=== PATIENT | female | born 1985 | race Asian ===

== ENCOUNTER 2017-07-02 07:54 | Outpatient (CLI) | payer BC, OTHER ==
--- NOTE | 2017-07-02 11:44 | PET ---
PET CT: HISTORY: 31-year-old female with invasive ductal carcinoma (Grade III) of the right breast in the lower inner quadrant. Patient is status post lumpectomy and chemotherapy. Last chemotherapy was in October 2015. Pat ient had bilateral oophorectomy in April 2016. TECHNIQUE: PET scanning with CT attenuation correction was performed from the base of the brain through the prox imal thighs following the intravenous administration of 12 mCi F18-FDG in the left antecubital fossa. COMPARISON: PET CT dated 10/25/16. FINDINGS: There is physiologic activity in the tonsils, heart, GI/ tract, and visualized portions of the brai n. No mercedes hypermetabolism is seen in the neck, mediastinum, intramammary regions, axilla, abdomen, pel vis, or inguinal regions. No hypermetabolic pulmonary nodules, liver, adrenal, or skeletal lesions ar e identified. The CT scan used for attenuation correction demonstrates no evidence of pleural effusions or ascites. Sclerotic lesion in the T12 vertebral body without abnormal FDG localization is again seen. IMPRESSION: No evidence of metastatic disease. POS: [facility]
== END 2017-07-02 07:55 | disposition home or self-care (01) ==
LOC: PET 07:54
PROVIDERS: ATTEND Internal Medicine Hematology & Oncology
DX: C50.919 Malignant neoplasm of unspecified site of unspecified female breast (principal)
CPT/HCPCS: 78815; A9552

== ENCOUNTER 2017-12-22 13:45 | Outpatient (CLI) | payer BC ==
--- NOTE | 2017-12-22 16:39 | MRI ---
MRI OF BRAIN WITH AND WITHOUT CONTRAST: Date: 12/22/17 INDICATION: Headache. History of breast cancer. FINDINGS: There is a large, extra-axial enhancing mass, with epicenter at the right frontoparietal calvarium wi th bone destruction and invasion beyond the confines of the medial calvarial cortex, which does resul t in direct mass effect upon the right cerebrum. There is associated edema. Mass demonstrates an irre gular, lobular morphology, with an approximate AP diameter of 6.2 cm and transverse dimension of 2.9 cm. No significant shift of midline. No additional, pathologically enhancing intra-axial lesions are evident. No evidence of acute infarction. There is stippled susceptibility of the mass, which likely relates to internal punctate calcification. IMPRESSION: Large, avidly enhancing extra-axial mass centered about the right frontoparietal calvarium indicative of a metastatic lesion. There is invasion of the medial calvarial cortex and direct mass effect upon the right cerebral hemisphere with associated edema. Recommend whole body bone scan bone scan for further evaluation. Telephone call placed to patient's physician, Veronika Hong, at time of dictation, 1625 hours, 8. CODE CR. POS: [facility]
== END 2017-12-22 13:46 | disposition home or self-care (01) ==
LOC: SCSMRI 13:45
PROVIDERS: ATTEND Internal Medicine Hematology & Oncology
DX: C50.919 Malignant neoplasm of unspecified site of unspecified female breast (principal); R22.0 Localized swelling, mass and lump, head; R51 Headache; R42 Dizziness and giddiness; G93.6 Cerebral edema
CPT/HCPCS: 70553

== ENCOUNTER 2017-12-24 09:35 | Outpatient (CLI) | payer BC ==
--- NOTE | 2017-12-24 11:32 | CT ---
CT CHEST WITH IV CONTRAST: CT ABDOMEN AND PELVIS WITH IV CONTRAST: HISTORY: Breast cancer with new found metastatic disease. Restaging. COMPARISON: PET scan from 07/02/2017. FINDINGS: Postoperative changes, right breast. Left subclavian Mediport. No pulmonary abnormalities or medias tinal adenopathy. Mixed sclerotic and lytic lesion involving the left side of the T5 vertebral body extends back to the level of the pedicular base. There is partial compression of the left side of th e involved vertebra. Multiple lobular low density masses are apparent throughout the liver, involving each lobe. The lesi ons were not visible on the noncontrast CT images from the PET scan on 07/02/2017. The largest bob s include a posterior segment right liver lobe lesion, up to 2.7 cm in depth, on the axial images, an d a mass centrally, within the anterior segment, right liver lobe, measuring up to 1.5 cm. The splee n, kidneys, adrenal glands, and pancreas are unremarkable. The urinary bladder is incompletely diste nded. IMPRESSION: Newfound metastatic lesions of the liver and thoracic spine. POS: [facility]
--- NOTE | 2017-12-24 13:05 | NM ---
WHOLE BODY BONE SCAN: Date: 12/24/17 CLINICAL HISTORY: Malignant neoplasm of lower inner quadrant right breast. Recent MRI of brain revealed metastatic lesi on centered at the right parietal calvarium. RADIOPHARMACEUTICAL: 31 mCi technetium-99m MDP IV. FINDINGS: There is abnormal increased scintigraphic activity localized to the right parietal calvarium at site of lesion on prior MRI of brain, which does confirm an osseous metastatic lesion. There is also abnor mal increased radiotracer activity involving the posterior aspect of the upper thoracic spine, T5 lev el. Scattered degenerative activity is seen within the axial and appendicular skeleton. IMPRESSION: Evidence of osseous metastatic disease involving the calvarium and the thoracic spine. POS: [facility]
[2017-12-24] MEDS ORDERED: Iopamidol 370 76% 100 ML VIAL ONE (15:19)
== END 2017-12-24 09:36 | disposition home or self-care (01) ==
LOC: NM 09:35
PROVIDERS: ATTEND Internal Medicine Hematology & Oncology
DX: C50.311 Malignant neoplasm of lower-inner quadrant of right female breast (principal); C78.7 Secondary malignant neoplasm of liver and intrahepatic bile duct; C79.51 Secondary malignant neoplasm of bone; K76.9 Liver disease, unspecified
CPT/HCPCS: 71260; 74177; 78306; A9503

== ENCOUNTER 2018-03-23 08:18 | Outpatient (CLI) | payer BC ==
--- NOTE | 2018-03-23 11:38 | MRI ---
THORACIC SPINE MRI WITH AND WITHOUT IV CONTRAST: HISTORY: A 32-year-old female with a history of breast cancer with bone metastasis, C50.311. Complaints of mi d back pain for several months. COMPARISON: Prior CT scan from 12/24/2017, as well as a bone scan from 12/24/2017. FINDINGS: With and without contrast MRI examination of the thoracic spine is performed. The entire T2 vertebra l body shows abnormal low T1 and high T2 signal, with some extension into the pedicles, evidence for a metastatic focus. No evidence for retropulsion. There is heterogeneous abnormal signal involving the T5 vertebral body, with some mild vertical heigh t loss centrally, evidence for a mild compression fracture, which does not appear significantly mcgarry ed from 12/24/2017. There is some very subtle retropulsion but no evidence for associated central ca nal narrowing or spinal cord compression. No evidence for a spinal cord mass or abnormal spinal cord enhancement. There is also some abnormal signal associated with the T3 vertebral body and the T12 v ertebral body, evidence for metastasis. IMPRESSION: Stable appearing T5 metastasis from 12/24/2017 with evidence for a mild pathologic fracture but no as sociated canal or foraminal stenosis. The entire T2 vertebral body shows abnormal signal with some e xtension into the pedicles, evidence for an extensive metastatic focus, without evidence for retropul jessica or canal stenosis. Additionally, there are metastatic foci involving the T3 and T12 vertebral b odies. POS: [facility]
== END 2018-03-23 08:19 | disposition home or self-care (01) ==
LOC: BICMRI 08:18
PROVIDERS: ATTEND Internal Medicine Hematology & Oncology
DX: C50.311 Malignant neoplasm of lower-inner quadrant of right female breast (principal); C79.51 Secondary malignant neoplasm of bone; D70.9 Neutropenia, unspecified; R11.0 Nausea
CPT/HCPCS: 72157

== ENCOUNTER 2018-04-02 08:10 | Outpatient (CLI) | payer BC ==
--- NOTE | 2018-04-02 11:19 | CT ---
CT BRAIN: DATE: 04/02/2018. COMPARISON: Comparison is made to comparison MRI from 12/2017. FINDINGS: CT images of the brain demonstrate expansile invasive right frontal intraosseous mass. The medially extending component of the soft tissue portion of this mass has slightly decreased in size. The intr aosseous component has an expansile permeative appearance eroding through the medial wall of the calv arium. The lesion appears to extent to the lateral table of the skull but does not appear to definit yfn expand past it into the scalp. No evidence of intracranial edema or hydrocephalus seen. IMPRESSION: Expansile right frontal intraosseous mass appearing to have a slight decrease as far as the volume of the soft tissue component. The permeative intraosseous component remains fairly stable. POS: [facility]
--- NOTE | 2018-04-02 11:40 | CT ---
CT THORAX WITH CONTRAST CT ABDOMEN WITH CONTRAST CT PELVIS WITH CONTRAST: Date: 04/02/18 HISTORY: 32-year-old female with: C50.311, breast cancer. C22.9, liver metastasis. C79.51, bone metastasis. TECHNIQUE: IV iodinated contrast media: Isovue-370. Oral contrast media: Administered. Single phase scans of thorax, abdomen, and pelvis. COMPARISON: 12/24/17. FINDINGS: Skeletal: The mixed osteolytic and osteoblastic lesion centered to the left of midline involving the T5 vertebr al body is again noted. It had increased uptake on the prior nuclear medicine bone scan, and is cons istent with a bone metastasis. On the previous CT, there was a sclerotic lesion centered to the righ t of midline at the T12 vertebral body, which did not have increased uptake on the nuclear medicine b one scan of the same day. Currently, that same lesion is unchanged, but now there is a new, smaller s clerotic lesion at the anterolateral periphery of the T12 vertebral body, broadly abutting the osseou s cortex, measuring approximately 0.8 x 0.6 x 1.2 cm (axial image 58 of 73, series 3; coronal image 3 0 of 58, series 5). This is suspicious for a new osteoblastic metastasis. No other suspicious osseous lesions are identified, including in the pelvis. Thorax: Left internal jugular implantable vascular access port. No mediastinal or hilar lymphadenopathy. Mult iple surgical clips in the right breast posteriorly near the right chest wall. Lungs are clear. No me diastinal or hilar lymphadenopathy. No thoracic aortic aneurysm. No pleural effusion or pneumothorax. Abdomen: Again noted are the several moderately low attenuation hepatic lesions with irregular, indistinct mar gins. The largest of these is in hepatic segment 6, and is approximately 2.7 cm. These hepatic lesion s have not significantly changed. Bilateral kidneys, abdominal aorta, pancreas, adrenals, and spleen are normal. There are a couple of minimally enlarged retroperitoneal lymph nodes to the left of the origin of the superior mesenteric a rtery and anteromedial to the left kidney, not significantly changed. Otherwise, there is no signific ant mesenteric, retroperitoneal, or theron hepatis lymphadenopathy. No small bowel dilation. Pelvis: Absent uterus. Decompressed unremarkable bladder. No iliac chain lymphadenopathy. No free fluid. IMPRESSION: 1. In addition to the previously demonstrated osseous metastatic lesion at T5 vertebral body, there is a new small sclerotic lesion at the right periphery of the T12 vertebral body, highly suspicious f or a new osseous metastatic deposit. 2. No significant interval change in the multiple hepatic metastases. 3. No other interval change. JN R POS: [facility]
[2018-04-02] MEDS ORDERED: ISOVUE-370 76%-LOCM 1 ML ONE (12:29)
== END 2018-04-02 08:11 | disposition home or self-care (01) ==
LOC: BICCT 08:10
PROVIDERS: ATTEND Internal Medicine Hematology & Oncology
DX: C50.919 Malignant neoplasm of unspecified site of unspecified female breast (principal); C79.51 Secondary malignant neoplasm of bone; C78.7 Secondary malignant neoplasm of liver and intrahepatic bile duct; C79.31 Secondary malignant neoplasm of brain; G93.9 Disorder of brain, unspecified
CPT/HCPCS: 70450; 71260; 74177

== ENCOUNTER 2018-07-01 13:01 | Outpatient (CLI) | payer BC ==
[~2018-07-01 13:01] MED LIST: Iopamidol 370 76% 100 ML VIAL ONE
--- NOTE | 2018-07-01 18:41 | CT ---
CT CHEST WITH CONTRAST CT ABDOMEN WITH CONTRAST CT PELVIS WITH CONTRAST: Date: 07/01/18 HISTORY: Breast cancer, liver metastasis and bone metastasis. COMPARISON: CT chest, abdomen, and pelvis dated 04/02/18. FINDINGS: New from the comparison examination is a focal area of consolidation in the superior segment right lo wer lobe with bronchial wall thickening. This has somewhat of a triangular shaped appearance. There i s also enlargement of a right perifissural lymph node which measures up to 8.0 mm in short axis, prev iously 4.0 mm. This could be reactive lymph node due to a healing infection. There is also an enlarge d left major fissure perifissural lymph node measuring 5.0 mm in short axis, previously 3.0 mm. There is a new nodule right lung base, posterior basal segment, axial image 48, measuring 3.0 mm, not seen on the prior examination. There is a new 6.0 mm pulmonary nodule medial segment right lower lobe, ax ial image 44. Thyroid is unremarkable. No mediastinal adenopathy. No pericardial effusion. Clips are present along the right inferior breast. No axillary adenopathy. No internal mammary adenop athy. Port catheter is in place, tip in good position. Hepatic metastatic disease has progressed. There are numerous new foci of metastasis within hepatic s egment V, , VII, and VIII. Index lesion within hepatic segment VII is new, axial image 58, measurin g 2.0 cm in largest dimension. Hepatic segment metastatic focus previously measured 1.5 cm in grea test dimension, now measures approximately 2.0 cm. There is some adjacent peripheral capsular retract ion. Hepatic segment lesion with peripheral capsular retraction, axial image 64, measures 1.7 cm i n greatest dimension, new. Spleen is unremarkable, as well as the pancreas. Gallbladder is unremarkable. Adrenal glands are norm al. No hydronephrosis. No dilated loops of large or small bowel. No retroperitoneal adenopathy. T12 sclerotic metastatic focus is similar. There is cement within the T5 vertebra with mixed sclerosi s and lytic appearance of the left sided portion of the vertebral body. There is a new mixed sclerotic and lytic lesion within the T2 vertebral body. In retrospect, the T2 v ertebral body mixed sclerosis and lytic central focus is similar to the comparison exam. Ribs are without displaced fracture. IMPRESSION: 1. Interval progression of metastatic disease with new and enlarging hepatic masses. 2. New small pulmonary nodules as described, concerning for early metastatic disease. 3. Focal area of consolidation superior segment right lower lobe with enlarged right perifissural ma mumtaz fissure and left perifissural major fissure lymph nodes may be reactive from healing infection. C lose attention on follow-up imaging is recommended. 4. Metastatic osseous disease at T2, T5, and T12, appears relatively similar, although there is new cement within the right T5 vertebral body. POS: [facility]
--- NOTE | 2018-07-01 18:50 | CT ---
CT HEAD WITH AND WITHOUT CONTRAST: INDICATIONS: Breast cancer with a history of metastasis. COMPARISON: Reference made to prior brain MRI from 12/22/2017, as well as intervening head CT from 04/02/2018. FINDINGS: Redemonstration of a lytic destructive mass of the right frontal parietal calvarium. There is underl french abnormal dural irregularity and enhancement, to indicate spread of metastasis of the extraaxial space. there is no definitive enhancing intraaxial mass identified. No midline shift or ventriculom egaly. No evidence of intracranial hemorrhage. There is a partially imaged retention cyst of the ri ght maxillary sinus. IMPRESSION: Redemonstration of a lytic destructive metastatic lesion occupying the right frontal parietal calvari um and the underlying extraaxial space. POS: [facility]
== END 2018-07-01 13:02 | disposition home or self-care (01) ==
LOC: BICCT 13:01
PROVIDERS: ATTEND Internal Medicine Hematology & Oncology
DX: C50.311 Malignant neoplasm of lower-inner quadrant of right female breast (principal); C22.9 Malignant neoplasm of liver, not specified as primary or secondary; C79.51 Secondary malignant neoplasm of bone; R91.8 Other nonspecific abnormal finding of lung field; J18.1 Lobar pneumonia, unspecified organism
CPT/HCPCS: 70470; 71260; 74177; Q9967

== ENCOUNTER 2018-07-08 08:28 | Outpatient (CLI) | payer BC ==
--- NOTE | 2018-07-08 10:42 | MRI ---
MRI CERVICAL SPINE WITH AND WITHOUT CONTRAST: HISTORY: Neck pain. Metastatic breast cancer. TECHNIQUE: MRI of the lumbar spine is performed with and without intravenous Gadolinium administration. Multise quential, multiplanar imaging is performed. FINDINGS: Straightening of normal cervical lordosis. No significant STIR hyperintensities, vertebral body neto a, or ligamentous injury with regards to the cervical spine. There is T1 marrow signal hypointensity with associated T2, STIR hyperintensity as well as enhancement involving the T1, T2, and T3 vertebra l bodies. Heterogeneous enhancement is noted at T2 and T3. There is 1.3 mm of anterolisthesis of C3 upon C4. 1.8 mm of anterolisthesis of C4 upon C5. Visualized brain parenchyma, cervicomedullary junction, cervical cord, and the upper thoracic cord linda ve a normal size and signal intensity. No abnormal enhancement. C2-C3: No significant central canal stenosis. Foramen are patent. C3-C4: No significant central canal stenosis. Foramen are patent. C4-C5: No significant central canal stenosis. Foramen are patent. C5-C6: Minimal central disk protrusion. No significant central canal stenosis. Foramen are patent. C6-C7: No significant central canal stenosis or foraminal narrowing. C7-1: No significant central canal stenosis or foraminal narrowing. There is an intrinsic T2 hyperi ntense, enhancing focus along the left aspect of the neck which is incompletely evaluated. The lesio n measures at least 1.6 cm in the craniocaudal dimension and is located at approximately the C7 level . IMPRESSION: 1. No significant central canal stenosis or foraminal narrowing. 2. Osseous metastases involving the upper thoracic spine. No definite osseous metastatic lesions in the cervical spine. 3. No abnormal signal intensity in the visualized spinal cord and brain parenchyma. 4. Enhancing focus in the left aspect of the neck, at approximately the level of the C7 vertebral lottie dy. The lesion is incompletely evaluated. Consider post contrast neck CT. POS: [facility]
== END 2018-07-08 08:29 | disposition home or self-care (01) ==
LOC: MRI 08:28
PROVIDERS: ATTEND Internal Medicine Hematology & Oncology
DX: C50.311 Malignant neoplasm of lower-inner quadrant of right female breast (principal); C78.7 Secondary malignant neoplasm of liver and intrahepatic bile duct; C79.51 Secondary malignant neoplasm of bone
CPT/HCPCS: 72156

== ENCOUNTER 2018-08-16 16:39 | Emergency (ER) | payer BC ==
[~2018-08-16 16:39] MED LIST changes: +ISOVUE-370 76%-LOCM 1 ML ONE; -Iopamidol 370 76% 100 ML VIAL ONE
[2018-08-16 17:54] LABS: Bilirubin Negative (Negative); Blood, Urine Negative (Negative); Clarity CLEAR (Clear); Glucose, Urine (Dipstick) Negative (Negative); Leukocyte Negative (Negative); Nitrite Negative (Negative); Protein, Urine (Dipstick) Negative (Neg-Trace); Specific Gravity, Urine 1.034 (1.002-1.036)
[2018-08-16 18:15] LABS: #Basophils 0.1 thou/uL (0.0-0.2); #Eosinphils 0.1 thou/uL (0.0-0.7); #Lymphocytes 1.5 thou/uL (1.20-3.40); #Monocytes 0.5 thou/uL (0.11-0.59); #Neutrophils 2.4 thou/uL (1.40-6.50); %Basophils 1.2 % (0.0-1.0); %Eosinophils 2.2 % (0.0-10.0); %Lymphocytes 33.5 % (21.0-51.0); %Monocytes 9.9 % (0.0-10.0); %Neutrophils 53.3 % (42.0-75.0); Mean Corpuscular Hemoglobin 33.3 pg (27.0-31.0); Mean Corpuscular Volume 97.8 fL (78.0-98.0); Mean Platelet Volume 6.3 fL (7.4-10.4); Platelet Count 304 thou/uL (130-400); RBC Distribution Width 13.6 % (11.5-14.5); Red Blood Cell (RBC) Count 3.91 mill/uL (4.20-5.40); White Blood Cell (WBC) Count 4.5 thou/uL (4.8-10.8)
[2018-08-16 18:22] LABS: PTT 29.7 SEC (22.9-36.1); Prothrombin Time 13.2 SEC (12.0-14.7)
[2018-08-16 18:26] LABS: ALT (SGPT) 111 U/L (8-55); AST (SGOT) 72 U/L (5-34); Albumin 4.8 g/dL (3.5-5.0); Alkaline Phosphatase 190 U/L (40-150); Anion Gap 14 mmol/L (10-20); BUN (Urea Nitrogen) 13 mg/dL (7.0-18.7); Bilirubin, Total 0.4 mg/dL (0.2-1.2); Calc. Creatinine Clearance 0 mL/min (70-130); Calcium 10.1 mg/dL (7.8-10.44); Carbon Dioxide 26 mmol/L (22-29); Chloride 103 mmol/L (98-107); Estimated GFR-MDRD 81; Globulin 3.6 g/dL (2.4-3.5); Glucose 93 mg/dL (70-105); Potassium 4.2 mmol/L (3.5-5.1); Protein, Total 8.4 g/dL (6.0-8.3); Sodium 139 mmol/L (136-145)
[2018-08-16] MEDS ORDERED: Nitroglycerin 0.4 MG TAB 1 EACH ONE (19:17)
[2018-08-16] MEDS ORDERED: Acetaminophen 500 MG TAB ONE (19:42)
--- NOTE | 2018-08-16 19:55 | CT ---
FExam: CT pulmonary angiogram with IV contrast and three-dimensional reconstructions Provided clinical history: Dyspnea FINDINGS: Comparison CT chest abdomen and pelvis 07/01/2018. There is no evidence for central or segmental pulmonary embolus. The heart, pericardium and great ves sels demonstrate a stable CT appearance. There is no evidence for thoracic lymph node enlargement. Th e airway appears patent and of normal caliber. No pleural fluid or pneumothorax apparent. There is pe rsistent parenchymal opacity involving the superior segment of the right lower lobe medially, with as sociated bronchial wall thickening. The right lower lobe pulmonary nodules described on the prior exa mination are not definitely identified on this examination. The previously described fissural nodule on the left does not appear significantly changed. Interval enlargement of the fissural nodule on the right measuring approximately 12 mm. Numerous hepatic masses as well as osseous metastatic disease a re redemonstrated. IMPRESSION: 1. No evidence for central or segmental pulmonary embolus. 2. Other findings as above.
[2018-08-16] MEDS ORDERED: Mag-Al 1200 mg/1200 mg/30 ML UDCUP ONE (21:24)
[2018-08-16] MEDS ORDERED: Lidocaine Viscous Sol 2% 15 ml UD Cup ONE (21:24)
[2018-08-16] MEDS ORDERED: Pantoprazole 40 MG VIAL ONE (21:24)
== END 2018-08-16 22:30 | disposition home or self-care (01) ==
LOC: ERS 16:39
DX: R07.89 Other chest pain (principal); F41.9 Anxiety disorder, unspecified; F32.9 Major depressive disorder, single episode, unspecified; Z87.891 Personal history of nicotine dependence; Z79.899 Other long term (current) drug therapy
CPT/HCPCS: 71275; 80053; 81003; 84484; 85025; 85610; 85730; 93005; 94760; 96374; C9113; Q9966

== ENCOUNTER 2018-09-06 12:15 | Emergency (ER) | payer BC ==
--- NOTE | 2018-09-06 13:10 | RAD ---
CHEST 1 VIEW: DATE: 09/06/2018. TIME: 12:55 p.m. HISTORY: Chest pain. FINDINGS: The heart size is normal. There is a left internal jugular Port-A-Cath with tip in the projection of the SVC. The lungs are expanded without focal areas of consolidation, pneumothoraces, or pleural ef fusions. There are changes of vertebroplasty in the lower thoracic spine. IMPRESSION: No radiographic evidence of acute cardiopulmonary process. POS: [facility]
[2018-09-06 13:17] LABS: #Basophils 0.1 thou/uL (0.0-0.2); #Eosinphils 0.1 thou/uL (0.0-0.7); #Lymphocytes 1.8 thou/uL (1.20-3.40); #Monocytes 0.7 thou/uL (0.11-0.59); #Neutrophils 4.2 thou/uL (1.40-6.50); %Basophils 0.8 % (0.0-1.0); %Eosinophils 0.9 % (0.0-10.0); %Lymphocytes 26.3 % (21.0-51.0); %Monocytes 10.5 % (0.0-10.0); %Neutrophils 61.6 % (42.0-75.0); Hemoglobin 13.1 g/dL (12.0-16.0); Mean Corpuscular HGB CONC 33.4 g/dL (32.0-36.0); Mean Corpuscular Hemoglobin 33.3 pg (27.0-31.0); Mean Corpuscular Volume 99.7 fL (78.0-98.0); Mean Platelet Volume 5.9 fL (7.4-10.4); Platelet Count 247 thou/uL (130-400); RBC Distribution Width 13.7 % (11.5-14.5); Red Blood Cell (RBC) Count 3.92 mill/uL (4.20-5.40); White Blood Cell (WBC) Count 6.8 thou/uL (4.8-10.8)
[2018-09-06 13:39] LABS: ALT (SGPT) 46 U/L (8-55); AST (SGOT) 38 U/L (5-34); Albumin 4.8 g/dL (3.5-5.0); Alkaline Phosphatase 165 U/L (40-150); Anion Gap 14 mmol/L (10-20); BUN (Urea Nitrogen) 10 mg/dL (7.0-18.7); Bilirubin, Total 0.5 mg/dL (0.2-1.2); CK (CPK) 98 U/L (29-168); Calc. Creatinine Clearance 0 mL/min (70-130); Calcium 9.9 mg/dL (7.8-10.44); Carbon Dioxide 29 mmol/L (22-29); Chloride 103 mmol/L (98-107); Estimated GFR-MDRD 74; Globulin 3.1 g/dL (2.4-3.5); Glucose 96 mg/dL (70-105); Potassium 4.3 mmol/L (3.5-5.1); Protein, Total 7.9 g/dL (6.0-8.3); Sodium 142 mmol/L (136-145)
[2018-09-06] MEDS ORDERED: ISOVUE-370 76%-LOCM 1 ML ONE (15:03)
--- NOTE | 2018-09-06 15:18 | CT ---
CT Brain W WO Con: 09/06/2018 2:04 PM CLINICAL HISTORY: Skull metastasis, numbness left-sided. COMPARISON: 07/01/2018 FINDINGS: Hemorrhage: None. Ventricular system: Normal in size and morphology for the patient's age. Cerebral parenchyma: Stable appearance. Extra-axial mass overlying the right frontal convexity remain s. Midline shift: None. Mass: No new intra-axial mass effect Calvarium: Large lytic destructive/permeative lesion of the right frontal and parietal bones is redem onstrated, grossly stable in volume. Visualized Paranasal sinuses: Clear. IMPRESSION: Stable large lytic destructive/permeative lesion of the right frontal and parietal bones.
== END 2018-09-06 16:37 | disposition home or self-care (01) ==
LOC: ERS 12:15
DX: R07.89 Other chest pain (principal); R20.2 Paresthesia of skin; C50.919 Malignant neoplasm of unspecified site of unspecified female breast; C78.7 Secondary malignant neoplasm of liver and intrahepatic bile duct; F41.9 Anxiety disorder, unspecified; F32.9 Major depressive disorder, single episode, unspecified
CPT/HCPCS: 36415; 70470; 71045; 80053; 82550; 84484; 85025; 93005; Q9966

== ENCOUNTER 2018-09-27 08:02 | Outpatient (CLI) | payer BC ==
--- NOTE | 2018-09-27 14:13 | NM ---
RADIONUCLIDE GASTRIC EMPTYING SCAN: HISTORY: Epigastric pain. Abdominal pain after radiation therapy treatments. H. Pylori infection diag nosed 4 weeks ago and has been treated RADIOPHARMACEUTICAL: 2 mCi technetium 99m sulfur colloid administered orally in scrambled eggs. FINDINGS: Gastric emptying at different times is as follows: 1 hour: 45% 2 hours: 72% 3 hours: 79% 4 hours: 81% The calculated gastric emptying half-time measures 73 minutes. IMPRESSION: Delayed gastric emptying.
== END 2018-09-27 08:03 | disposition home or self-care (01) ==
LOC: NM 08:02 → MERGE 08:02 → NM 08:03
PROVIDERS: ATTEND Physician Assistant Medical
DX: R10.13 Epigastric pain (principal); K30 Functional dyspepsia
CPT/HCPCS: 78264; A9541

== ENCOUNTER 2018-10-18 07:19 | Outpatient (CLI) | payer BC ==
--- NOTE | 2018-10-18 09:58 | MRI ---
PRE AND POST CONTRAST ENHANCED MRI THORACIC SPINE: HISTORY: Patient with history of back pain. Multiplanar, multisequence noncontrast enhanced MRI images thoracic spine obtained. FINDINGS: Areas of signal abnormality seen in the C7, T1, T2, T3, T4, and T5 levels. There is signal abnormalit y seen in the spinous processes of C7, T1, and T2, as well as vertebral body of T12. These findings are compatible with extensive lower cervical and thoracic metastatic lesions. Areas of signal abnorma lity seen in the T5 vertebral body likely due to vertebroplasty. These lesions do enhance on the contrast-enhanced images. IMPRESSION: Extensive thoracic spine metastatic disease as described above. No significant evidence of central st enosis or neural foraminal narrowing seen. Transcribed Date/Time: 10/18/2018 10:08 AM
== END 2018-10-18 07:20 | disposition home or self-care (01) ==
LOC: SCSMRI 07:19
PROVIDERS: ATTEND Nurse Practitioner Family
DX: M84.48XA Pathological fracture, other site, initial encounter for fracture (principal); C79.51 Secondary malignant neoplasm of bone
CPT/HCPCS: 72146

== ENCOUNTER 2018-11-26 09:53 | Day surgery (SDC) | payer BC ==
[2018-11-25 15:13] VITALS: BMI 30.4
[2018-11-26 10:04] LABS: #Lymphocytes 0.9 thou/uL (1.20-3.40); #Monocytes 0.2 thou/uL (0.11-0.59); %Eosinophils 0.9 % (0.0-10.0); %Lymphocytes 28.5 % (21.0-51.0); %Monocytes 7.4 % (0.0-10.0); %Neutrophils 63.2 % (42.0-75.0); Hemoglobin 12.9 g/dL (12.0-16.0); Mean Corpuscular HGB CONC 32.6 g/dL (32.0-36.0); Mean Platelet Volume 5.9 fL (7.4-10.4); Platelet Count 260 thou/uL (130-400); RBC Distribution Width 15.5 % (11.5-14.5); Red Blood Cell (RBC) Count 3.93 mill/uL (4.20-5.40); White Blood Cell (WBC) Count 3.1 thou/uL (4.8-10.8)
[2018-11-26 10:12] LABS: PTT 29.4 SEC (22.9-36.1); Prothrombin Time 13.4 SEC (12.0-14.7)
[2018-11-26 11:49] VITALS: BP 96/81; TEMP 97.2
--- NOTE | 2018-11-26 12:04 | CT ---
CT-guided liver mass biopsy Conscious sedation: At least 1 hour was spent with the patient for conscious sedation. HISTORY: Liver masses. Breast cancer. FINDINGS: After explaining the procedure and answering all questions, limited CT imaging of the abdom en was performed. Sterile technique, buffered local anesthesia, CT guidance, conscious sedation, and a right upper quadrant intercostal approach were used to carefully advance the tip of a 17-gauge trocar needle to the level of a small hypodense mass in the right liver lobe. Position was confirmed with CT. A total of 4 18-gauge core biopsy specimens were obtained and submitted to Dr. Islas from pathology f or specimen adequacy. Needle was removed. No evidence of complication. Patient tolerated the procedure well and was returned to the holding area in good condition for further monitoring. IMPRESSION: Technically successful CT-guided liver mass biopsy. Pathology is pending.
== END 2018-11-26 13:45 | disposition home or self-care (01) ==
LOC: CT 09:53
PROVIDERS: ATTEND Internal Medicine Hematology & Oncology
PROC: 0FB13ZX Excision of Right Lobe Liver, Percutaneous Approach, Diagnostic (ICD-10-PCS; principal; 2018-11-26)
DX: C78.7 Secondary malignant neoplasm of liver and intrahepatic bile duct (principal); C50.911 Malignant neoplasm of unspecified site of right female breast; D70.9 Neutropenia, unspecified; F41.9 Anxiety disorder, unspecified; F32.9 Major depressive disorder, single episode, unspecified; Z87.891 Personal history of nicotine dependence; Z86.19 Personal history of other infectious and parasitic diseases; Z79.899 Other long term (current) drug therapy
CPT/HCPCS: 36415; 47000; 77012; 85025; 85610; 85730

== ENCOUNTER 2018-12-15 15:57 | Outpatient (CLI) | payer BC ==
--- NOTE | 2018-12-15 17:49 | ULT ---
LEFT UPPER EXTREMITY VENOUS DOPPLER EVALUATION WITH SPECTRAL ANALYSIS AND COLORFLOW EVALUATION: HISTORY: Left upper extremity swelling/edema. TECHNIQUE: [place]-scale, color-flow, Doppler evaluation, and spectral analysis of the left upper extremity venous structures is performed with 2D imaging. FINDINGS: There is normal lumen compressibility and flow seen in the visualized left upper extremity interna ju gular and axillary veins, with normal flow in the left subclavian vein. There is normal lumen compre ssibility and flow involving the left brachial vein. The cephalic and basilic veins are not well see n due to the very small size, but also demonstrate normal lumen compressibility. There is suggestion of flow and normal lumen compressibility with the left ulnar and radial veins. IMPRESSION: No evidence of deep venous thrombosis involving the visualized deep venous structures of the left upp er extremity. POS: [facility]
== END 2018-12-15 15:58 | disposition home or self-care (01) ==
LOC: ULT 15:57
PROVIDERS: ATTEND Internal Medicine Hematology & Oncology
DX: I82.90 Acute embolism and thrombosis of unspecified vein (principal); R60.0 Localized edema; M79.602 Pain in left arm; C79.51 Secondary malignant neoplasm of bone; C50.311 Malignant neoplasm of lower-inner quadrant of right female breast
CPT/HCPCS: 80053

== ENCOUNTER 2018-12-21 09:52 | Outpatient (CLI) | payer BC ==
--- NOTE | 2018-12-21 12:02 | MRI ---
MRI LEFT SHOULDER WITH AND WITHOUT IV CONTRAST: DATE: 11/03/2018. PROVIDED CLINICAL HISTORY: Left shoulder pain, history of breast cancer. FINDINGS: There is a focal, rounded, mass-like area of signal alteration present within the posterior aspect of the proximal left humeral metaphyseal region. This demonstrates T1 signal intensity similar to skel etal muscle, T2 signal intensity, hyperintense to skeletal muscle and essentially diffuse contrast en hancement. Regional marrow signal appears otherwise normal. The amount of fluid within the glenohumeral joint a ppears physiologic. The components of the rotator cuff appear intact. The long head biceps tendon a ppears intact and is normally located. Acromioclavicular joint degenerative changes are seen. There is a physiologic amount of subacromial subdeltoid bursal fluid. Nonspecific subacromial subdeltoid bursal enhancement. There is no evidence for axillary lymph node enlargement. IMPRESSION: 1. Approximately 9 mm enhancing lesion within the posterior aspect of the left proximal humeral meta physeal region, suspicious for a metastatic lesion in a patient with a history of breast cancer. 2. Acromioclavicular joint osteoarthrosis and findings suggesting mild subacromial subdeltoid bursit is. POS: [facility]
--- NOTE | 2018-12-21 12:19 | MRI ---
MRI LEFT HUMERUS: DATE: 12/21/2018. PROVIDED CLINICAL HISTORY: Left arm pain. FINDINGS: Enhancing mass within the left proximal humeral metaphyseal region as described on concurrent MRI lef t shoulder. Please see that report. There is mild nonspecific signal inhomogeneity involving the marrow of the left humeral diaphysis. N o definite area of mass-like enhancement within the remainder of the left humerus is identified. Reg ional muscular signal appears normal. The courses of the regional major neurovascular structures sid ear unremarkable. IMPRESSION: 1. Enhancing lesion within the left proximal humeral metaphyseal region as described on concurrent M RI of the left shoulder. Please see that report. 2. Nonspecific signal inhomogeneity involving the diaphyseal marrow of the humerus without additiona l focal mass-like enhancing lesion evident. POS: [facility]
== END 2018-12-21 09:53 | disposition home or self-care (01) ==
LOC: MRI 09:52
PROVIDERS: ATTEND Internal Medicine Hematology & Oncology
DX: M79.602 Pain in left arm (principal); R20.2 Paresthesia of skin; C79.51 Secondary malignant neoplasm of bone; C50.311 Malignant neoplasm of lower-inner quadrant of right female breast; R60.0 Localized edema; M89.9 Disorder of bone, unspecified; M19.012 Primary osteoarthritis, left shoulder

== ENCOUNTER 2019-03-21 08:06 | Outpatient (CLI) | payer BC ==
[2019-03-21] MEDS ORDERED: Iopamidol 370 76% 100 ML VIAL ONE (09:00)
--- NOTE | 2019-03-21 11:54 | CT ---
CT HEAD WITH AND WITHOUT CONTRAST: CLINICAL HISTORY: Metastatic disease. COMPARISON: Reference is made to outside brain MRI from 02/18/2019. FINDINGS: There is a permeative lytic lesion centered at the right frontal parietal calvarium with underlying p athologic meningeal enhancement and adjacent vasogenic edema. There are multifocal subcentimeter enhancing foci of the bilateral cerebral hemispheres indicative of multiple metastatic lesions and gi essence differences in imaging modalities, these do appear progressed from the comparison exam. A dural based mass along the interhemispheric falx measures 13 mm, compared to approximately 11 mm on precedi ng MRI. IMPRESSION: Evidence of metastatic disease involving the brain parenchyma and calvarium. Given differences in ashley ging modalities, findings do appear progressed from the reference MRI from 02/18/2019. A more sensitive comparison followup may be obtained with pre and postcontrast brain MRI, as clinically soraya cated. Transcribed Date/Time: 03/21/2019 12:10 PM
--- NOTE | 2019-03-21 12:18 | CT ---
CT of chest and abdomen performed with contrast: HISTORY: Breast cancer with metastatic disease. COMPARISON: CT of the chest and abdomen performed at [facility] dated the 2018. Also review of the bone scan of 12/27/2018 done at [facility]. FINDINGS: There is been development of moderate bilateral pleural effusions. There is now generalized increased interstitial lung changes which have a slightly patchy peripheral nodular appearance associated with these changes. A soft tissue pleural-based nodule located along the superior aspect o f the major fissure on the left measures 2.2 cm in maximum dimension on today's study is compared to 1.6 cm. There is a nodular density present within the right upper lobe on the previous examination is now more vague ill-defined nodular opacity. There is also nodular mass density which is seen along the major fissure on the right which is also increasing in size as is difficult to measure but is definitely increased. The interstitial pattern could certainly be related to an element of edema but the concern would be that this also could represent lymphangitic spread of tumor. Small right paratracheal nodes are slightly increased in number and size as compared to prior exam th e best comparison is a 2 to 3 mm right paratracheal of lymph nodes seen on the prior examination now measuring 7 to 8 mm in size. There is also a subcarinal lymph nodes which are increased. There is centrally of low attenuation which could indicate treatment effect. There is no significant axillary adenopathy. CT of abdomen performed with intravenous contrast enhancement: There is been a significant progressio n in the liver metastases metastatic disease is compared to exam innumerable nodules are seen within the right and left lobes with increase in number and size. The spleen pancreas and gallbladder regions appear unremarkable. There are small gastrohepatic lymph nodes which are increased in size these are in the 1 cm range. There are also some small chain of 1 cm lymph nodes located just to the left of the aorta at the level of the superior mesenteric artery, these are slightly more prominent than on the previous study. The right and left adrenal glands and right and left kidneys are normal in size. No significant mesen teric adenopathy. Review of osseous structures once again shows sclerotic bony lesions of these lower cervical and uppe r thoracic spine region with vertebral plasty changes of T5 and lytic bony change at T6 there is loss of vertebral body height involving the superior endplate of T11 and L2, this is a new finding as compared to the previous tamps may be related to osteoporosis as I do not see any lytic or blastic bony process. The blastic bony change involving the left SI joint region is fairly similar. IMPRESSION: 1. Development of interstitial lung changes in both lung cazares associated bilateral pleural effusion s. Certainly this could represent some element of pulmonary edema but the possibility of lymphangitic spread of tumor would also be a consideration. There is been a definite increase in size of the nodularity along the major fissure on the left and right. 2. Increase in the liver metastatic disease. 3. Subtle increase in size as on the mediastinal nodes as well as gastrohepatic lymph nodes and peria ortic nodes. 4. Stable appearance to the bony metastatic change.
== END 2019-03-21 08:07 | disposition home or self-care (01) ==
LOC: SCSCT 08:06
PROVIDERS: ATTEND Internal Medicine Hematology & Oncology
DX: C50.311 Malignant neoplasm of lower-inner quadrant of right female breast (principal); C79.51 Secondary malignant neoplasm of bone; C78.7 Secondary malignant neoplasm of liver and intrahepatic bile duct; C79.31 Secondary malignant neoplasm of brain; R59.9 Enlarged lymph nodes, unspecified; J90 Pleural effusion, not elsewhere classified
CPT/HCPCS: 70470; 71260; 74160

== ENCOUNTER 2019-03-28 11:31 | Inpatient (IN) | payer BC ==
[2019-03-28] MEDS ORDERED: Racepinephrine 2.25% 0.5 ML NEB ONE (11:45)
[2019-03-28] MEDS ORDERED: Dexamethasone 10 MG/ML VIAL ONE (11:46)
--- NOTE | 2019-03-28 12:14 | RAD ---
Exam: Chest one view HISTORY:Productive cough. Pneumonia. Comparison: 09/06/2018 FINDINGS: Cardiac silhouette: Normal Aorta: Unremarkable Pulmonary vessels: Prominent Costophrenic angles: Mild bilateral effusions Lines and tubes: Stable left-sided Port-A-Cath LUNGS: Bilateral interstitial and alveolar infiltrates. Pneumothorax: None Osseous abnormalities: None IMPRESSION: Bilateral interstitial and alveolar infiltrates which may represent multilobar pneumonia. Continued surveillance is recommended.
[2019-03-28 12:16] LABS: BHCG - Serum Negative (NEGATIVE); Pregs Control Background? CLEAR/WHITE (CLR/WHITE); Pregs Control Bar Appear? YES (CONTROL BAR)
[2019-03-28 12:22] LABS: ALT (SGPT) 224 U/L (8-55); AST (SGOT) 132 U/L (5-34); Albumin 4.1 g/dL (3.5-5.0); Alkaline Phosphatase 943 U/L (40-110); Anion Gap 19 mmol/L (10-20); BUN (Urea Nitrogen) 15 mg/dL (7.0-18.7); Bilirubin, Total 0.8 mg/dL (0.2-1.2); Calc. Creatinine Clearance 0 mL/min (70-130); Calcium 9.6 mg/dL (7.8-10.44); Carbon Dioxide 21 mmol/L (22-29); Chloride 103 mmol/L (98-107); Estimated GFR-MDRD Greater than 90; Globulin 2.9 g/dL (2.4-3.5); Glucose 111 mg/dL (70-105); Potassium 3.5 mmol/L (3.5-5.1); Sodium 139 mmol/L (136-145)
[2019-03-28 12:31] LABS: #Eosinphils 0.1 thou/uL (0.0-0.7); #Lymphocytes 1.2 thou/uL (1.20-3.40); #Monocytes 0.4 thou/uL (0.11-0.59); #Neutrophils 4.5 thou/uL (1.40-6.50); %Basophils 0.4 % (0.0-1.0); %Eosinophils 1.1 % (0.0-10.0); %Lymphocytes 18.7 % (21.0-51.0); %Monocytes 7.1 % (0.0-10.0); %Neutrophils 72.7 % (42.0-75.0); Hemoglobin 13.6 g/dL (12.0-16.0); Mean Corpuscular HGB CONC 32.9 g/dL (32.0-36.0); Mean Corpuscular Hemoglobin 29.6 pg (27.0-31.0); Mean Corpuscular Volume 89.7 fL (78.0-98.0); Mean Platelet Volume 7.7 fL (7.4-10.4); Platelet Count 100 thou/uL (130-400); RBC Distribution Width 15.5 % (11.5-14.5); Red Blood Cell (RBC) Count 4.59 mill/uL (4.20-5.40); White Blood Cell (WBC) Count 6.2 thou/uL (4.8-10.8)
[2019-03-28 12:32] LABS: Platelet Morphology Comment Appears Decreased
[2019-03-28] MEDS ORDERED: CEFAZOLIN 1 GM VIAL ONE (12:34)
[2019-03-28 12:38] LABS: Thyroid Stimulating Hormone 0.2425 uIU/mL (0.35-4.94)
[2019-03-28] MEDS ORDERED: Cefepime 1 GM VIAL ONE (15:48)
--- NOTE | 2019-03-28 16:21 | CON ---
DATE OF CONSULTATION: HISTORY OF PRESENT ILLNESS: Jeromy Moura is a 33-year-old female, who was sent to the ER by Dr. Hong oncologist for shortness of breath, cough, wheezing, and symptoms of aspiration. She had an MRI done, which showed evidence of metastatic disease in the brain parenchyma, and the calvarium in February 2019. MRI now shows worsening disease. She saw an ENT physician, recently was found to have paralyzed vocal cord. She has coughing and wheezing, has difficulty breathing for the last 4 weeks. Prior to that, she says she could walk a block without getting markedly short of breath. Additionally, she is having issues with swallowing and may be aspirating. The patient has never smoked. No prior history of pneumonia, TB, asthma. PAST MEDICAL HISTORY: Pertinent for metastatic breast cancer. A liver biopsy done in November 2018 also showed presence of liver, breast, and pulmonary METS. HOME MEDICATIONS: Include; 1. Effexor 225. 2. Lyrica 50. 3. Mirtazapine 15. 4. Hydrocodone. 5. Nexium 40. 6. Xanax p.r.n. ALLERGIES: NONE. PREVIOUS SURGERIES: As outlined. Recent liver biopsy, recent lumpectomy in 2014, oophorectomy, spinal surgery. REVIEW OF SYSTEMS: Otherwise negative. PHYSICAL EXAMINATION: VITAL SIGNS: Sats are 96% on 2 L, pulse 80, blood pressure 130/80, respirations 20. CHEST: Wheezing, right greater than left. CARDIAC: Normal S1 and S2. No gallops. ABDOMEN: Soft without any masses. LABORATORY DATA: White count 6000, H and H and platelet count has decreased to 100,000. Lytes are normal. AST is 132. Thyroid function is normal. IMPRESSION: Dyspnea secondary to metastatic breast cancer with bilateral pleural effusion and probably lymphangitic spread. Vocal cord dysfunction. Former smoker. PLAN: At this stage, comfort care. I have added steroids, neb treatments to present regime. Echocardiogram to assess LV function and pericardial effusion if any, which may help her dyspnea. Pulmonary will her follow in the ICU. Consultation note, 70 minutes, 50% direct patient care. Job ID: [id number]
[2019-03-28] MEDS: methylPREDNISolone Sod Succ 40 MG VIAL IVP SCH (18:07)
[2019-03-28] MEDS: Sodium Chloride 0.9% 1,000 ML IV SCH (18:07)
[2019-03-28] MEDS: Mometasone/Formoterol 120 PUFF INHALER INH SCH (19:14)
--- NOTE | 2019-03-28 19:59 | CON ---
DATE OF CONSULTATION: 03/28/2019 REASON FOR CONSULTATION: Dyspnea, possible aspiration pneumonia. CONSULTING PROVIDER: Misty Dunbar. HISTORY OF PRESENT ILLNESS: The patient is a 33-year-old female with past medical history of anxiety disorder, depression, and metastatic breast cancer with metastatic disease to the lungs, liver, brain and bone, H pylori status post treatment, delayed gastric emptying and a paralyzed vocal cord, presenting with increased shortness of breath. She states that over the last 3 to 4 weeks, she has been having progressively worsening shortness of breath, that was initially characterized as dyspnea on exertion, but more recently has been dyspnea on exertion as well as shortness of breath at rest as well. This was also associated with increased coughing and wheezing over the last few weeks. Adding that in the morning she would wake up and have a significant amount of sputum production, but upon clearing, would have improved breathing for the rest of the day. She had been recently evaluated by an ENT physician (Dr. Smith) and diagnosed with a paralyzed vocal cord, for which she was supposed to undergo a lateralizing maneuver, but this has since been scrapped for unknown reasons at this time. Currently, she states that she would have increased coughing with intake of food primarily with solids, but sometimes with liquids. At the current time, she tends to tolerate semi-solid foods okay with no increased coughing or gagging associated with ingestion. She did undergo a modified barium swallow last week, and the patient stated that the results indicated more speech pathology evaluation and techniques regarding swallowing as opposed to recommendations for percutaneous gastrostomy tube placement. However, over the last few days, she is with the increased shortness of breath, both at rest and exertion. It prompted her to seek healthcare assistance and was evaluated at [facility] for the above issues. Upon evaluation in [facility]'s ER, she was noted to have bilateral pleural effusions concerning for possible aspiration type process and ultimately admitted to the hospital for further evaluation. Currently, she states that she will have mild odynophagia with ingestion of milk only and has had a weight loss of approximately 25 pounds over the last 4 weeks unintentionally. However, she denies any nausea, vomiting, fevers, chills, abdominal pain, overt dysphagia, hematemesis, melena or hematochezia. Of note, the patient has undergone multiple therapies for her metastatic breast cancer MD Meehan for a new chemotherapy regimen. However, with the yazidi of increasing bone mets in her brain, she was subsequently dropped from the study and has been more recently evaluated by Dr. Hooker for radiotherapy to these metastatic lesions to the back of her head, completing her most recent round of radiotherapy this last week. REVIEW OF SYSTEMS: She does endorse increased headaches, but denies any paresthesias. Otherwise, a 10 category review of systems was obtained with all responses negative except for the pertinent positives as listed in HPI. PAST MEDICAL HISTORY: As per HPI. PAST SURGICAL HISTORY: Lumpectomy in 2015, oophorectomy, spinal surgery, and liver biopsy. FAMILY HISTORY: Denies any GI malignancies. SOCIAL HISTORY: Denies any tobacco, alcohol or illicit drug use. OUTPATIENT MEDICATIONS: 1. Effexor 225 mg daily. 2. Lyrica 50 mg daily. 3. Mirtazapine daily. 4. Hydrocodone as needed. 5. Nexium 40 mg daily. 6. Xanax as needed. ALLERGIES: NO KNOWN DRUG ALLERGIES. PHYSICAL EXAMINATION: VITAL SIGNS: Temperature 97.6, pulse 107, blood pressure 98/74, respiratory rate 34, and saturating 96% on 2 L of nasal cannula. GENERAL: The patient was sitting in bed, in no acute distress. Alert and oriented x4, although visibly tachypneic. HEENT: Normocephalic atraumatic. NECK: Supple. No JVD or scleral icterus noted. CARDIOVASCULAR: Tachycardic rate, but regular rhythm with no discernible murmurs, gallops or rubs. RESPIRATORY: Increased resistance to air flow in the bilateral upper lung cazares with diminished air sounds and possible weak crackles heard in the bilateral lower lung cazares. ABDOMEN: Normoactive bowel sounds. Soft, nontender, and nondistended. EXTREMITIES: No cyanosis, clubbing or edema. LABORATORY DATA: CBC with a white blood cell count of 6.2, hemoglobin 13.6, hematocrit 41.2, and platelets 100. Chemistry with a sodium of 139, potassium 3.5, chloride 103, CO2 of 21, BUN 15, creatinine 0.69, and glucose 111. AST 132, ALT 224, alkaline phosphatase 943, total bilirubin 0.8, and albumin 4.1. TSH 0.2425. IMAGING DATA: Chest x-ray obtained on March 28, 2019, showed mild bilateral pleural effusions as well as stable positioning of the left-sided Port-A-Cath with bilateral interstitial and alveolar infiltrates, which may represent a multilobar pneumonia. ASSESSMENT AND PLAN: The patient is a 33-year-old female with past medical history of anxiety, depression, Helicobacter pylori status post treatment, paralyzed vocal cord, delayed gastric emptying, and metastatic breast cancer with metastatic disease to the lungs, liver, brain and bone, presenting with increased shortness of breath, concerning for aspiration pneumonia versus vocal cord dysfunction versus metastatic disease to lungs. Possible aspiration. The patient is presenting with a progressively increasing shortness of breath, both at rest and exertion, that has been present for over the last 4 weeks. She has been having intermittent episodes of increased coughing/gagging with food intake, has been primarily associated with either solid or liquid food stuffs. However, she has been able to tolerate semi-solid foods somewhat well with decreased occurrences of the above. She did have a modified barium swallow last week over at the [facility] with results not available for review at this time, but per the patient, did not indicate any evidence of overt aspiration. At this point, she is presenting with bilateral pleural effusions as well as alveolar infiltrates concerning for an infectious versus metastatic process, so obtaining those records for the barium swallow study are crucial at this point in determining her ability to tolerate oral intake. RECOMMENDATIONS: 1. We would keep the patient n.p.o. for now until the results of the modified barium swallow study are known. If they show indeterminate results, then I would repeat the swallow study here at [facility]. 2. I would recommend placing the patient on PPI 40 mg IV daily for possible aspiration from gastric contents and a delayed gastric emptying. 3. We would recommend speech pathology evaluation for swallowing therapy. 4. We will hold on the percutaneous gastrostomy tube placement until the results are known of the modified barium swallow study. 5. Antibiotics per primary team if deemed necessary. 6. Pain control per primary team. 7. Elevated liver function tests. Upon review of the labs during this admission, the patient is noted to have uptrending liver function tests, characterized primarily as a significantly elevated alkaline phosphatase and moderately elevated AST and ALT consistent with a more cholestatic process rather than a hepatocellular one. Given her recent history of liver biopsy and metastatic disease to the liver, this is more likely the explanation for her transaminitis. Based on these labs, there is no evidence of biliary obstruction with an elevated bilirubin, but it is uptrending and may need careful monitoring during the course of this hospitalization. We will continue to trend LFTs during this hospitalization for signs of possible biliary obstruction secondary to metastatic disease. Treatment of metastatic disease per primary oncology team. We will continue to follow. Please call with any questions. Job ID: [id number]
[2019-03-28] MEDS ORDERED: Vancomycin HCl 1 GM in Premix Bag 1 BAG IVPB SCH (21:00)
[2019-03-28] MEDS ORDERED: Cefepime 1 GM in Sodium Chloride 0.9% 100 ML IVPB SCH (22:00)
[2019-03-28] MEDS: LEVORPHANOL 2 MG PO SCH (22:04)
--- NOTE | 2019-03-28 23:03 | CON ---
DATE OF CONSULTATION: REASON FOR CONSULTATION: Breast cancer. HISTORY OF PRESENT ILLNESS: Chelo is a pleasant 33-year-old female with stage IV ER positive, HER-2 negative breast cancer. She has had recent progression with new brain mets. She is currently undergoing radiation to her spine due to cord compression. Recently, she began to have dysphagia, hoarseness and shortness of breath. She was seen by Dr. Smith, who did a laryngoscopy. She was noted to have left vocal cord paralysis in the lateral position. She underwent a swallow study at the [facility]. There was a significantly limited opening of the cricopharyngeus. She had worsening short of breath and was sent to the emergency room for further evaluation and for possible aspiration pneumonia. She was seen by Pulmonary, who has put her on steroids and neb treatments. She denies any complaints at this time other than dysphagia. PAST MEDICAL HISTORY: 1. Stage 4 metastatic breast cancer with brain and spinal mets. 2. Anxiety. PAST SURGICAL HISTORY: Biopsy. ALLERGIES: NO KNOWN DRUG ALLERGIES. HOME MEDICATIONS: 1. Effexor ER 150 mg. 2. Dexamethasone. 3. Hydrocodone. 4. Hydromorphone. 5. Lyrica. FAMILY HISTORY: Noncontributory. SOCIAL HISTORY: , has 1 child. Lives with her spouse. No alcohol, tobacco, or illicit drug use. REVIEW OF SYSTEMS: A 10-point review of systems is negative except for noted in HPI. PHYSICAL EXAMINATION: VITAL SIGNS: Per ER record. GENERAL: Well-developed, well-nourished female, in mild respiratory distress. HEENT: Normocephalic, atraumatic. Pupils are equal and reactive to light. CV: Regular rate and rhythm. LUNGS: She has scattered rhonchi and wheezing. ABDOMEN: Soft and nontender. Bowel sounds are positive. SKIN: No rash. HEMATOLOGICAL: No petechiae or purpura. NEUROLOGICAL: Alert and oriented. PERTINENT LABS AND X-RAYS: Current WBCs are 6.2, hemoglobin 13.6, hematocrit 41.2, platelet count is 100,000. She has 72% neutrophils, 18% lymphocytes. Sodium 139, potassium 3.5, chloride 103, CO2 is 21, BUN is 15, creatinine is 0.69, calcium 9.6, bilirubin 0.8, AST is 132, ALT is 224, alkaline phosphatase is 943. Serum total protein is 7, albumin 4.1, globulin 2.1. Chest x-ray shows bilateral interstitial and alveolar infiltrates consistent with multilobar pneumonia. ASSESSMENT: 1. Metastatic breast cancer with recent progression in the brain and spine. 2. Vocal cord paralysis, likely secondary to brain mets. 3. Dysphagia with possible aspiration pneumonia. DISCUSSION: The patient has been started on antibiotics and neb treatments. She will be admitted for further evaluation. We briefly discussed a PEG tube in order to maintain adequate nutrition. She has seen Dr. Coleman in the past. She denies any complaints of any pain at this time. Case has been discussed with Dr. Hong, who has also seen the patient. Thank you for the consult. Job ID: [id number]
[2019-03-29] MEDS: methylPREDNISolone Sod Succ 40 MG VIAL IVP SCH ×3 (00:31→21:07)
--- NOTE | 2019-03-29 00:35 | HP ---
CHIEF COMPLAINT: Shortness of breath. HISTORY OF PRESENT ILLNESS: This patient is a 33-year-old female with history of stage IV widely metastatic breast cancer and she has brain metastasis and spine metastasis. The brain metastasis had been causing significant neurologic dysfunction including affecting her cranial nerves. The patient was originally on chemotherapy through a study protocol at [facility]; however, when she developed brain metastases, she had withdrawal from the study. She has subsequently only been receiving radiation to the brain with Dr. Hooker locally. The patient has some vocal cord dysfunction and has seen Dr. Hammond at the [facility] and apparently, there was some plan for lateralizing procedure, but that has not occurred as of yet. The patient reports that she is getting increasingly short of breath and is unable to take so much as a step or two without becoming extremely short of breath and struggling to breathe. She does have some history of difficulty with swallowing over the last 4 weeks. It is unclear she has been aspirating. She does have some difficulty with swallowing solids and with thin liquids. She has been able to manage on pureed consistency or thickened liquids for a while. She did just have a swallowing study performed at the [facility] and was apparently told that was the best consistency for her, although we do not specifically have those results present now. The recommendation was that she follow up with Speech Therapy for ongoing intervention therapeutic exercises. She does report that she has some cough in the mornings, but it is typically more related to some drainage. She feels hot all the time, but denies any specific fevers or chills. She is having some pain in her left chest area up under her left breast. She has chronic coarseness, but tends to be less short of breath at rest. REVIEW OF SYSTEMS: As noted, she has hoarseness, left chest pain. She has numbness in her left anterolateral mandible area, it does extend sometimes down into her neck area. She has had some numbness on her right hand, but that has been better since the radiation, and she does occasionally have some numbness on her left side as well. All other systems reviewed. All pertinent positives and negatives noted in the history of present illness. PAST MEDICAL HISTORY: Notable for the metastatic breast cancer with metastasis to the liver, skull, spine, and brain. She also has some depression issues. States that when she took Xanax on a more regular basis, it actually made her suicidally depressed. PAST SURGICAL HISTORY: Right-sided lumpectomy, oophorectomy, thoracic spinal surgery, kyphoplasty, partial thyroidectomy. FAMILY HISTORY: Reviewed, nothing contributory to this admission. SOCIAL HISTORY: No history of smoking. She has history of social drinking. No drug use. She is . She is full code. Her would be her surrogate decision maker. ALLERGIES: NONE. CURRENT MEDICATIONS: 1. Effexor 300 mg daily. 2. Hydrocodone p.r.n. 3. Levorphanol 2 mg q.8 hours p.r.n. 4. Dexamethasone 4 mg daily. 5. Pantoprazole 40 mg daily. PHYSICAL EXAMINATION: VITAL SIGNS: Initially on presentation, pulse 155, O2 sats 91% on room air, BP was 121/91. Most recent BP is 98/74, pulse 107, respirations 34, O2 saturation 96% on 2 L nasal cannula oxygen. GENERAL APPEARANCE: Remarkably well-appearing female who is in no distress when she has an opportunity to rest in bed. She is hypophonic with some hoarseness of voice, but able to speak in generally full sentences. HEENT: PERRL. No OP lesions. NECK: Supple and symmetric with no lymphadenopathy, JVD, or bruits. HEART: Regular rate and rhythm, tachycardic. No murmurs, gallops, or rubs. LUNGS: Diminished at the bases bilaterally, but no wheezes or rales are noted. ABDOMEN: Soft, nontender, and nondistended with positive bowel sounds. No masses. No organomegaly. EXTREMITIES: No cyanosis, clubbing, or edema. LABORATORY DATA: White count 6.2, hemoglobin 13.6, platelets 100. Sodium 139, potassium 3.5, chloride 103, CO2 of 21, BUN 15, creatinine 0.69, glucose 111, AST 132, ALT 224, alkaline phosphatase 943. Albumin is to 4.1. TSH is 0.2425. test negative. Flu screen is negative. Chest x-ray shows bilateral interstitial and alveolar infiltrates, which may represent multilobar pneumonia. Reviewing her recent imaging reports, she had a CT scan of the chest on 03/21/2019, which revealed development of interstitial lung changes in both lungs associated with bilateral pleural effusions, which could represent some element of pulmonary edema, but the possibility of lymphangitic spread of tumor is also considered. There was a definite increase in the size of the nodularity along the major fissure on the left and right. There was an increase in liver metastatic disease. Subtle increase in mediastinal nodes as well as gastrohepatic lymph nodes and periaortic nodes and a stable appearance of the bony metastases. IMPRESSION AND PLAN: 1. Acute hypoxic respiratory failure, likely multifactorial including factor such as vocal cord dysfunction, pleural effusions, and possible metastatic disease or acute infection. We will continue with supplemental oxygen. 2. Possible pneumonia. She has infiltrates concerning for possible multilobar pneumonia; however, white count is normal. She is generally afebrile. We will continue to cover with broad-spectrum antibiotics given her underlying cancer. 3. Possible aspiration. She appears to have some dysphagia. Discussed with Dr. Coleman. We actually saw the patient largely together. He is going to try to obtain the results from the swallowing study from the [facility] and help us determine the best course of action whether that be modified diet or consideration for a PEG tube. 4. Metastatic breast cancer with metastasis to the brain, spine, skull, liver, and lungs with multiple enlarged nodes throughout the thorax and abdomen. Oncology will continue to follow. At this point, it appears that there is a little more opportunity for therapeutic intervention other than some isolated radiation, which has apparently ended as of today. 5. Pain management. We will continue with her levorphanol from [facility] and give her p.r.n. IV medication as needed for backup. 6. Elevated liver enzymes secondary to metastatic disease. 7. History of anxiety/depression, certainly understandable in this setting. We will continue with her high dose of Effexor and give her some IV lorazepam p.r.n. Job ID: [id number] [facility]
[2019-03-29] MEDS: Vancomycin HCl 1 GM in Premix Bag 1 BAG IVPB SCH ×2 (01:13→15:31)
[2019-03-29] MEDS: Cefepime 1 GM in Sodium Chloride 0.9% 100 ML IVPB SCH ×2 (03:49→17:55)
[2019-03-29] MEDS: LEVORPHANOL 2 MG PO SCH ×3 (05:57→22:12)
--- NOTE | 2019-03-29 07:47 | CON ---
DATE OF CONSULTATION: 03/28/2019 ADDENDUM: This is an addendum to Misty Dunbar, nurse practitioner's history and physical. ASSESSMENT: Ms. Pinzon is a 33-year-old female with metastatic breast cancer to brain with multiple complications including; 1. Brain metastases. 2. 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 3. Dysphagia and poor swallowing function secondary to cranial nerve involvement. 4. Hoarseness secondary to vocal cord paralysis from cranial nerve involvement. 5. Lung and liver metastases. 6. Probable aspiration pneumonitis. 7. Shortness of breath and hypoxia secondary to the above. PLAN: 1. She will be admitted for observation and oxygen support, Pulmonary has been consulted and we appreciate their help. 2. She remains a full code, I did address this with her today, but she would like to remain a full code for now. 3. She likely needs a feeding tube, we will consult GI, I did discuss this with her today, she has been seen by ENT as an outpatient and they concur that at this point that is her best option. 4. She will be diuresed. 5. IV antibiotics in the case of pneumonia, but I do not think she looks like she is infected. 6. Palliative Care consult. 7. She might benefit from morphine to help with breathing. We will possibly add this on this hospitalization. She is aware her overall prognosis is poor. Job ID: [id number]
[2019-03-29] MEDS: Mometasone/Formoterol 120 PUFF INHALER INH SCH ×2 (07:49→19:59)
--- NOTE | 2019-03-29 08:20 | PDOC.MOPN ---
Interval History: still SOB, not eating. some mild lizbet nwith deep breaths - Vital Signs Vital Signs: Vital Signs (12 hours) Temp Pulse Resp BP Pulse Ox 03/29/19 07:39 114 H 22 H 03/29/19 04:12 98.5 F 99 18 110/69 93 L 03/29/19 00:20 97.6 F 113 H 16 104/70 93 L 03/28/19 23:41 120 H 24 H Weight Weight 167 lb - Physical Exam General: Alert, Mild distress HEENT: Atraumatic Lungs: Clear to auscultation, Other (bilateral decreased BS, some upper airway wheezing) Cardiovascular: Regular rate, Other (tachy) Abdomen: Normal bowel sounds Extremities: No clubbing, No edema Skin: No rashes Psych/Mental Status: Mental status NL - Labs Result Diagrams: 03/28/19 11:45 03/28/19 11:45 Lab results: Laboratory Results - last 24 hr 03/28/19 11:45: WBC 6.2, RBC 4.59, Hgb 13.6, Hct 41.2, MCV 89.7, MCH 29.6, MCHC 32.9, RDW 15.5 H, Plt Count 100 L, MPV 7.7, Neutrophils % 72.7, Neutrophils % ( Manual) Not Reportable, Lymphocytes % 18.7 L, Monocytes % 7.1, Eosinophils % 1.1 , Basophils % 0.4, Neutrophils # 4.5, Lymphocytes # 1.2, Monocytes # 0.4, Eosinophils # 0.1, Basophils # 0.0, Plt Morphology Comment Appears Decreased L 03/28/19 11:45: Sodium 139, Potassium 3.5, Chloride 103, Carbon Dioxide 21 L, Anion Gap 19, BUN 15, Creatinine 0.69, Estimated GFR (MDRD) Greater than 90, Glucose 111 H, Calcium 9.6, Total Bilirubin 0.8, AST 132 H, ALT 224 H, Alkaline Phosphatase 943 H, Serum Total Protein 7.0, Albumin 4.1, Globulin 2.9, Albumin/ Globulin Ratio 1.4 03/28/19 11:45: TSH 3rd Generation 0.2425 L, Serum , Qual Negative - Radiology Interpretation CT - chest report reviewed by me Additional Comment: CXR reviewed by me, not CT A/P - Problem (1) Metastatic breast carcinoma Current Visit: Yes Code(s): C50.919 - MALIGNANT NEOPLASM OF UNSP SITE OF UNSPECIFIED FEMALE BREAST Status: Acute (2) Brain metastases Current Visit: Yes Code(s): C79.31 - SECONDARY MALIGNANT NEOPLASM OF BRAIN Status: Acute (3) Cranial nerve disorder Current Visit: Yes Code(s): G52.9 - CRANIAL NERVE DISORDER, UNSPECIFIED Status: Acute (4) Swallowing difficulty Current Visit: Yes Code(s): R13.10 - DYSPHAGIA, UNSPECIFIED Status: Acute (5) Lung metastases Current Visit: Yes Code(s): C78.00 - SECONDARY MALIGNANT NEOPLASM OF UNSPECIFIED LUNG Status: Acute (6) Aspiration into respiratory tract Current Visit: Yes Code(s): T17.908A - UNSP FB IN RESP TRACT, PART UNSP CAUSING OTH INJURY, INIT Status: Acute - Plan Plan: 1. we discussed again that her prognosis is poor, she does not want hospice yet 2. hopefully peg today 3. npo 4. appreciate pulm help 5. consult palliative care 6. consider starting halaven later this week 7. she remains full code, we discussed this again today
[2019-03-29] MEDS ORDERED: FLU VACC QS2019-20(6MOS UP)/PF 60 MCG/0.5 ML SYRINGE IM ONE (09:00)
[2019-03-29] MEDS ORDERED: Prevnar 13-Val Conj/PF 0.5 ML SYRINGE IM ONE (09:00)
[2019-03-29] MEDS: Sodium Chloride 0.9% 1,000 ML IV SCH (09:02)
--- NOTE | 2019-03-29 09:57 | PRG ---
DATE OF SERVICE: 03/29/2019 SUBJECTIVE: Doing better this morning, still got a cough, but wheezing has improved. No fever or chills. OBJECTIVE: VITAL SIGNS: Temperature 98, pulse 115, respiratory rate 22, saturations 92% on 2 L, blood pressure 140/91. CHEST: No wheezing. CARDIAC: Sinus tach. ABDOMEN: Soft. No masses. ASSESSMENT AND PLAN: Metastatic cancer, thrombocytopenia, dysphagia, liver metastasis. I see no evidence of infection at this stage. I would discontinue antibiotics. Taper steroids. Continue supportive care. We will follow. Job ID: [id number]
[2019-03-29] MEDS: Lorazepam 2 MG/ML VIAL SLOW IVP PRN ×2 (10:09→21:07)
[2019-03-29] MEDS: Venlafaxine HCl XR 150 MG CAP PO SCH (11:32)
[2019-03-29] MEDS: Pantoprazole 40 MG VIAL IVP SCH (11:33)
[2019-03-29] MEDS: HYDROcodone/Acetaminophen 10/325 mg Tablet PO PRN (11:37)
--- NOTE | 2019-03-29 14:25 | PDOC.HOSPP ---
- Subjective Encounter Date: 03/29/19 Encounter Time: 14:23 Subjective: Continued SOB and very weak - Objective Vital Signs & Weight: Vital Signs (12 hours) Temp Pulse Resp BP Pulse Ox 03/29/19 12:19 97.8 F 123 H 20 104/65 94 L 03/29/19 08:37 98.3 F 118 H 22 H 140/91 H 92 L 03/29/19 07:39 114 H 22 H 03/29/19 04:12 98.5 F 99 18 110/69 93 L Weight Weight 167 lb I&O: 03/28/19 03/29/19 03/30/19 06:59 06:59 06:59 Intake Total 1050 Balance 1050 Result Diagrams: 03/28/19 11:45 03/28/19 11:45 Hospitalist ROS - Medication Medications: Active Medications Generic Name Dose Route Start Last Admin Trade Name Freq PRN Reason Stop Dose Admin Hydrocodone Bitart/Acetaminophen 2 tab 03/29/19 11:33 03/29/19 11:[address] 10/325 PO 2 tab Q4H PRN Administration Pain Albuterol/Ipratropium 3 ml 03/28/19 19:00 03/29/19 13:27 Duoneb NEB Not Given [id number] SARAH Sodium Chloride 1,000 mls @ 75 mls/hr 03/28/19 17:45 03/29/19 09:02 Normal Saline 0.9% IV 1,000 mls .[id number] SARAH Administration Cefepime HCl 1 gm/ Sodium 100 mls @ 200 mls/hr 03/29/19 04:00 03/29/19 03:49 Chloride IVPB 100 mls 0400,1600 SARAH Administration Vancomycin HCl 1 gm/ Device 200 mls @ 200 mls/hr 03/29/19 02:00 03/29/19 01: 13 IVPB 200 mls 0200,1400 SARAH Administration Lorazepam 0.5 mg 03/28/19 17:43 03/29/19 10:09 Ativan SLOW IVP 0.5 mg Q6H PRN Administration Anxiety/Agitation Mometasone Furoate/Formoterol Fumar 2 puff 03/28/19 18:30 03/29/19 07:49 Dulera 200 Mcg/5 Mcg Inhaler INH 2 puff BID-RT SARAH Administration Pantoprazole Sodium 40 mg 03/29/19 09:00 03/29/19 11:33 Protonix IVP 40 mg DAILY SARAH Administration Levorphanol 2mg 1 each 03/28/19 22:00 03/29/19 05:57 Patient's Home PO 1 each Medication Q8HR SARAH Administration Venlafaxine HCl 300 mg 03/29/19 09:00 03/29/19 11:32 Effexor Xr PO 300 mg DAILY SARAH Administration - Exam General Appearance: awake alert, ill appearing Eye: PERRL, anicteric sclera ENT: normocephalic atraumatic, no oropharyngeal lesions Neck: supple, symmetric, no thyromegaly, no lymphadenopathy Heart: RRR, no murmur, no gallops Respiratory - other findings: coarse breath sounds Gastrointestinal: soft, non-tender, non-distended Extremities: no cyanosis, 1+ LE edema Neurological: cranial nerve grossly intact, no new deficit Musculoskeletal: normal tone, normal strength, no muscle wasting Psychiatric: normal affect, normal behavior, A&O x 3 Hosp A/P (1) Acute respiratory failure with hypoxia Code(s): J96.01 - ACUTE RESPIRATORY FAILURE WITH HYPOXIA Status: Acute (2) Aspiration into respiratory tract Code(s): T17.908A - UNSP FB IN RESP TRACT, PART UNSP CAUSING OTH INJURY, INIT Status: Acute (3) Brain metastases Code(s): C79.31 - SECONDARY MALIGNANT NEOPLASM OF BRAIN Status: Acute (4) Lung metastases Code(s): C78.00 - SECONDARY MALIGNANT NEOPLASM OF UNSPECIFIED LUNG Status: Acute (5) Metastatic breast carcinoma Code(s): C50.919 - MALIGNANT NEOPLASM OF UNSP SITE OF UNSPECIFIED FEMALE BREAST Status: Acute (6) Swallowing difficulty Code(s): R13.10 - DYSPHAGIA, UNSPECIFIED Status: Acute - Plan old records reviewed/req, plan discussed w/ family, continue antibiotics, DVT proph w/SCDs Patient with metastatic breast cancer. Mets to liver, lungs, brain. Patients wants to be full code Acute respiratory failure with possible aspiration pneumonia Started on [place] oxygen abx, steroids Pain control Unfortunately, today patients mother had a fall in the room and CT showed brain mass (new dx) This distressed the patient immensely
--- NOTE | 2019-03-29 18:31 | PRG ---
DATE OF SERVICE: 03/29/2019 REASON FOR CONSULTATION: Possible aspiration pneumonia, dysphagia. SUBJECTIVE: Overnight, the patient did not experience any acute problems or events. She states that her shortness of breath at rest is improved and has not exhibited increased conversational dyspnea when compared to yesterday. She was able to tolerate small amounts of applesauce earlier today without any significant difficulty, but did have some mild coughing associated with ingestion. Otherwise, she has maintained n.p.o. with no additional problems. Currently, she denies any nausea, vomiting, fevers, chills, abdominal pain, or GI bleeding. OBJECTIVE: VITAL SIGNS: Temperature 97.8, pulse 123, blood pressure 104/65, respiratory rate 20, saturating 94% on 2 L nasal cannula. GENERAL: The patient was lying in bed, in no acute distress. Alert and oriented x4. Mild conversational dyspnea. CARDIOVASCULAR: Tachycardic rate, but regular rhythm with no discernible murmurs, gallops, or rubs. RESPIRATORY: Increased resistance to air flow in the bilateral upper lung cazares, but more clear to auscultation in the bilateral lower lung cazares. ABDOMEN: Normoactive bowel sounds. Soft, nontender, nondistended. EXTREMITIES: No cyanosis, clubbing, or edema. LABORATORY DATA: No current studies are available for review. IMAGING DATA: The modified barium swallow obtained on 03/24/2019, at [facility] showed evidence of penetration and aspiration with all food consistencies. It also showed difficulty swallowing the 13 mm barium tablet with significant residue within the posterior oropharynx and the valleculae. At this time, the patient is a high risk for aspiration. ASSESSMENT AND PLAN: The patient is a 33-year-old female with past medical history of anxiety, depression, Helicobacter pylori, gastritis status post treatment, paralyzed vocal cord, delayed gastric emptying, and metastatic breast cancer with metastatic disease to the lungs, liver, brain, and bone, presenting with increased shortness of breath concerning for aspiration pneumonia and a modified barium swallow showing oropharyngeal dysphagia resulting in aspiration. Aspiration pneumonia secondary to oropharyngeal dysphagia The patient had undergone a modified barium swallow on 03/24/2019, at [facility] with findings consistent with aspiration with all food consistencies and inability to swallow a 13 mm tablet. At this time, she is at higher risk for aspiration and has most likely resulted in an aspiration pneumonia for which she is currently being treated for. Clinically, the patient is doing better with broad-spectrum antibiotics and her conversational dyspnea has decreased, but she is still currently on 2 L nasal cannula for additional oxygen support. At this time, the patient needs placement of a PEG tube given the plans for additional therapies related to her metastatic breast cancer for which she will need to be optimized in terms of her nutrition. She is at higher risk of complication with PEG tube placement with her current clinical condition, but given her metastatic disease and vocal cord paralysis, her condition may not improve to better than current state. I feel that she might be able to undergo a PEG tube placement tomorrow. Recommendations: 1. Would continue the patient on n.p.o. status given the result of the modified barium swallow showing aspiration. 2. We will plan for EGD with PEG tube placement tomorrow. 3. Appreciate Speech Pathology recommendations regarding her oropharyngeal dysphagia. 4. Antibiotics per primary team. Elevated liver function tests: On admission, the patient was noted to have elevated AST, ALT, and a significantly elevated alkaline phosphatase, most likely due to metastatic disease to both liver and bone respectively. Today, no labs were available for review, but we will obtain repeat set tomorrow for further monitoring. Recommendations: 1. Would continue to trend LFTs daily during this hospitalization for possible signs of biliary obstruction secondary to metastatic disease. 2. Treatment of metastatic disease per primary Oncology team. We will continue to follow. Please call with any questions. Job ID: [id number] [email or web address]
[2019-03-30] MEDS: Sodium Chloride 0.9% 1,000 ML IV SCH ×3 (00:43→19:56)
[2019-03-30] MEDS: HYDROcodone/Acetaminophen 10/325 mg Tablet PO PRN (00:45)
[2019-03-30] MEDS: Vancomycin HCl 1 GM in Premix Bag 1 BAG IVPB SCH (01:41)
[2019-03-30] MEDS: Cefepime 1 GM in Sodium Chloride 0.9% 100 ML IVPB SCH (03:32)
[2019-03-30 04:16] LABS: ALT (SGPT) 158 U/L (8-55); AST (SGOT) 95 U/L (5-34); Albumin 3.5 g/dL (3.5-5.0); Alkaline Phosphatase 729 U/L (40-110); Anion Gap 13 mmol/L (10-20); BUN (Urea Nitrogen) 10 mg/dL (7.0-18.7); Bilirubin, Total 0.8 mg/dL (0.2-1.2); Calc. Creatinine Clearance 145 mL/min (70-130); Calcium 8.4 mg/dL (7.8-10.44); Carbon Dioxide 24 mmol/L (22-29); Chloride 106 mmol/L (98-107); Estimated GFR-MDRD Greater than 90; Globulin 2.4 g/dL (2.4-3.5); Glucose 136 mg/dL (70-105); Potassium 3.6 mmol/L (3.5-5.1); Protein, Total 5.9 g/dL (6.0-8.3); Sodium 139 mmol/L (136-145)
[2019-03-30 04:42] LABS: Band 15 % (5-11); Lymphocytes 4 % (21-51); MDiff Complete? YES; Mean Corpuscular HGB CONC 32.8 g/dL (32.0-36.0); Mean Corpuscular Hemoglobin 29.5 pg (27.0-31.0); Mean Platelet Volume 7.8 fL (7.4-10.4); Monocytes 1 % (0-10); Myelocyte 1 % (0-0); Neutrophil 79 % (42-75); Nucleated RBC 2 % (0); Platelet Count 64 thou/uL (130-400); Platelet Morphology Comment Appears Decreased; RBC Distribution Width 15.6 % (11.5-14.5); Red Blood Cell (RBC) Count 3.73 mill/uL (4.20-5.40)
[2019-03-30] MEDS: LEVORPHANOL 2 MG PO SCH ×2 (05:51→14:13)
[2019-03-30] MEDS: Mometasone/Formoterol 120 PUFF INHALER INH SCH ×2 (06:55→19:56)
--- NOTE | 2019-03-30 07:54 | PDOC.HOSPP ---
- Subjective Encounter Date: 03/30/19 Encounter Time: 07:52 Subjective: 33 y/o female with metastatic breast cancer with mets to brain, liver and spine etc, and associated with vocal cord dysfunction and dysphagia admitted with worsening SOB. Now NPO . PEG tube placement is planned. No fever. - Objective Vital Signs & Weight: Vital Signs (12 hours) Temp Pulse Resp BP Pulse Ox 03/30/19 07:10 96 03/30/19 06:55 117 H 20 96 03/30/19 03:00 97.6 F 104 H 16 111/68 94 L 03/29/19 23:46 98.2 F 103 H 16 111/70 93 L 03/29/19 20:15 92 L 03/29/19 19:56 122 H 24 H 95 Weight Weight 167 lb I&O: 03/29/19 03/30/19 03/31/19 06:59 06:59 06:59 Intake Total 1050 1010 Output Total 950 650 Balance 1050 -950 360 Result Diagrams: 03/30/19 03:40 03/30/19 03:40 Hospitalist ROS - Medication Medications: Active Medications Generic Name Dose Route Start Last Admin Trade Name Freq PRN Reason Stop Dose Admin Hydrocodone Bitart/Acetaminophen 2 tab 03/29/19 11:33 03/30/19 00:45 [place] 10/325 PO 2 tab Q4H PRN Administration Pain Albuterol/Ipratropium 3 ml 03/28/19 19:00 03/30/19 06:55 Duoneb NEB 3 ml [id number] SARAH Administration Sodium Chloride 1,000 mls @ 75 mls/hr 03/28/19 17:45 03/30/19 00:43 Normal Saline 0.9% IV 1,000 mls .[id number] SARAH Administration Vancomycin HCl 1 gm/ Device 200 mls @ 200 mls/hr 03/29/19 02:00 03/30/19 01: 41 IVPB 200 mls 0200,1400 SARAH Administration Lorazepam 0.5 mg 03/28/19 17:43 03/29/19 21:07 Ativan SLOW IVP 0.5 mg Q6H PRN Administration Anxiety/Agitation Methylprednisolone Sodium Succinate 40 mg 03/29/19 21:00 03/29/19 21:07 Solu-Medrol IVP 40 mg BID SARAH Administration Mometasone Furoate/Formoterol Fumar 2 puff 03/28/19 18:30 03/30/19 06:55 Dulera 200 Mcg/5 Mcg Inhaler INH 2 puff BID-RT SARAH Administration Pantoprazole Sodium 40 mg 03/29/19 09:00 03/29/19 11:33 Protonix IVP 40 mg DAILY SARAH Administration Levorphanol 2mg 1 each 03/28/19 22:00 03/30/19 05:51 Patient's Home PO 1 each Medication Q8HR SARAH Administration Venlafaxine HCl 300 mg 03/29/19 09:00 03/29/19 11:32 Effexor Xr PO 300 mg DAILY SARAH Administration - Exam General Appearance: awake alert General - other findings: afebrile ENT: normocephalic atraumatic Neck: symmetric Heart: RRR Heart - other findings: tachycardia Respiratory - other findings: fair air entry with coarse transmitted sound. No rhonchi Gastrointestinal: soft, non-tender, non-distended, normal bowel sounds Extremities: no edema Neurological: no new deficit Psychiatric: normal affect, A&O x 3 Hosp A/P (1) Acute respiratory failure with hypoxia Code(s): J96.01 - ACUTE RESPIRATORY FAILURE WITH HYPOXIA Status: Acute (2) Aspiration into respiratory tract Code(s): T17.908A - UNSP FB IN RESP TRACT, PART UNSP CAUSING OTH INJURY, INIT Status: Acute (3) Brain metastases Code(s): C79.31 - SECONDARY MALIGNANT NEOPLASM OF BRAIN Status: Acute (4) Cranial nerve disorder Code(s): G52.9 - CRANIAL NERVE DISORDER, UNSPECIFIED Status: Acute (5) Lung metastases Code(s): C78.00 - SECONDARY MALIGNANT NEOPLASM OF UNSPECIFIED LUNG Status: Acute (6) Metastatic breast carcinoma Code(s): C50.919 - MALIGNANT NEOPLASM OF UNSP SITE OF UNSPECIFIED FEMALE BREAST Status: Acute (7) Swallowing difficulty Code(s): R13.10 - DYSPHAGIA, UNSPECIFIED Status: Acute (8) Abnormal LFTs Code(s): R94.5 - ABNORMAL RESULTS OF LIVER FUNCTION STUDIES Status: Acute - Plan Substitute Cefepime with zosyn to cover for anaerobic coverage Continue oxygen supplementation Awaiting PEG tube placement. Will DC IV antibiotics and change to oral levaquin and flagyl after PEG placement. Cancer treatment as per [facility]
--- NOTE | 2019-03-30 08:00 | RAD ---
Chest AP view INDICATION: Effusion COMPARISON: March 28, 2019 FINDINGS: Lungs:Worsening perihilar interstitial and airspace opacities Cardiac silhouette:Worsening cardiomegaly Pulmonary vasculature:Worsening pulmonary vascular congestion Pleural spaces:Worsening [id number] bilateral pleural effusions Upper abdomen:No abnormality seen. Osseous structures: Vertebral plasty change of T5 is stable. No acute osseous abnormality. Additional findings:None. IMPRESSION: Findings suspicious for worsening volume overload or CHF. Bibasilar pleural-parenchymal o pacity likely reflecting a mixture of bilateral pleural effusions with atelectasis. Component of pneumonia is also suspected. Continued radiographic follow-up is recommended.
[2019-03-30] MEDS: Piperacillin/Tazobactam 3.375 GM in Sodium Chloride 0.9% 100 ML IVPB SCH ×3 (08:28→19:55)
[2019-03-30] MEDS: methylPREDNISolone Sod Succ 40 MG VIAL IVP SCH (08:29)
[2019-03-30] MEDS: Pantoprazole 40 MG VIAL IVP SCH (08:30)
--- NOTE | 2019-03-30 09:25 | PDOC.PALCO ---
Palliative Care Consult - Consult Details Requesting Physician: Dr Hong Reason for Consult: goals of care, family support Family Members Present: Ronald and mother in law Monica - Pertinent HPI 33 year old female who has been seen by Dr Hong for metastatic breast cancer , metastasis to brain and spine resulting in neurologic dysfunction specifically cranial nerves. Palliative radiation by Dr Bansal currently. Nerve impact has resulted in dysphagia, attempt to place PEG today. Patient mother had a CVA at bedside 03/29/19 and is currently in CCU. Patient and have a 7 year old daughter Rohini who is an only child, in the second grade. Dr Hong has encouraged the patient to take her daughter to a counselor to establish care , adm that her daughter will know that her mother initiated. Father and daughter are involved in "[email or web address]" and he is "Den leader". - Pertinent PMH Metastatic breast cancer to brain liver, spine, skull. Depression - Social History Smoking Status: Never smoker Smoking: no tobacco exposure Alcohol Use: occasional Drug Use History: none Living Situation: - Medications MAR Reviewed: Yes - Allergies Allergies/Adverse Reactions: Allergies Allergy/AdvReac Type Severity Reaction Status Date / Time No Known Allergies Allergy Verified 11/26/18 11:43 - Subjective Awake, alert. Numbness to hands, dry mouth, weakness, tremors with exertion to upper extremities, shortness of breath with conversation, difficulity swallowing. Denies: Nausea, vomiting, headache, chest pain/discomfort, abdominal tenderness , cough, visual disturbances. - Objective Vital Signs: Vital Signs - Most Recent Temp Pulse Resp BP Pulse Ox 98.4 F 109 H 18 108/72 96 03/30/19 07:00 03/30/19 07:00 03/30/19 07:00 03/30/19 07:00 03/30/19 07:10 Palliative Performance Scale: 40 - Advance Directives Medical Power of Systems Analyst: Ronald - Physical Exam Constitutional: NAD HEENT: moist MMs, sclera anicteric, EOMI Deviation from normal: dry muscous membranes Respiratory: clear to auscultation bilateral Deviation from normal: Clear upper, diminished bilaterally to bases Cardiovascular: RRR Gastrointestinal: soft, non-tender, positive bowel sounds Musculoskeletal: pulses present, no clubbing Neurological: moves all 4 limbs Deviation from normal: parasthesia to hands, mild. Psychiatric: normal affect, A&O x 3 Skin: normal turgor, cap refill <2 seconds Deviation from normal: Pallor - Problem List (1) Palliative care encounter Code(s): Z51.5 - ENCOUNTER FOR PALLIATIVE CARE Current Visit: Yes Status: Acute (2) Acute respiratory failure with hypoxia Code(s): J96.01 - ACUTE RESPIRATORY FAILURE WITH HYPOXIA Current Visit: Yes Status: Acute (3) Cranial nerve disorder Code(s): G52.9 - CRANIAL NERVE DISORDER, UNSPECIFIED Current Visit: Yes Status: Acute (4) Lung metastases Code(s): C78.00 - SECONDARY MALIGNANT NEOPLASM OF UNSPECIFIED LUNG Current Visit: Yes Status: Acute (5) Metastatic breast carcinoma Code(s): C50.919 - MALIGNANT NEOPLASM OF UNSP SITE OF UNSPECIFIED FEMALE BREAST Current Visit: Yes Status: Acute (6) Swallowing difficulty Code(s): R13.10 - DYSPHAGIA, UNSPECIFIED Current Visit: Yes Status: Acute - Plan/Recommendations Plan: Visited with patient, and mother in law at length. Patient expressed concern in relation to nutrition if the peg was not able to be placed , discussed possibilities of iv support, but to wait to see outcome of procedure. Discussed patient daughter, outcomes and goals of care. *Will follow up this afternoon after PEG *Biotene for dry mucous membranes *Teaching this afternoon in relation to oral care and management of dry mucous membranes *Visit this afternoon in relation to goals of care and how to facilitate patient taking her daughter to the counselor. *Use "Go wish Cards" to focus and identify priority of patient wishes. *Visit with to identify how to support. *Will order stool softener this afternoon unless PEG not placed, then will consider MI medication to simulate bowel movement [60] minutes spent on this encounter with >50% of the time in counseling and coordination of care. Thank you for this very appropriate consult.
[2019-03-30] MEDS ORDERED: PROPOFOL 200 MG/20 ML VIAL ONE (09:28)
[2019-03-30] MEDS ORDERED: BIOTENE MOUTH SPRAY 44.3 ML PO PRN (09:39)
[2019-03-30] MEDS ORDERED: Fentanyl 100 MCG/2 ML VIAL ONE (12:20)
--- NOTE | 2019-03-30 13:16 | PDOC.MOPN ---
Interval History: Patient seen just prior to peg tube placement. Anxious. - Vital Signs Vital Signs: Vital Signs (12 hours) Temp Pulse Resp BP Pulse Ox 03/30/19 08:00 93 L 03/30/19 07:10 96 03/30/19 07:00 98.4 F 109 H 18 108/72 93 L 03/30/19 06:55 117 H 20 96 03/30/19 03:00 97.6 F 104 H 16 111/68 94 L Weight Weight 167 lb - Physical Exam General: Alert HEENT: Atraumatic Cardiovascular: Regular rate Abdomen: Normal bowel sounds Extremities: No clubbing Neurological: Other - Labs Result Diagrams: 03/30/19 03:40 03/30/19 03:40 Lab results: Laboratory Results - last 24 hr 03/30/19 03:40: WBC 5.0, RBC 3.73 L, Hgb 11.0 L, Hct 33.5 L, MCV 90.0, MCH 29.5 , MCHC 32.8, RDW 15.6 H, Plt Count 64 L, MPV 7.8, Neutrophils % (Manual) 79 H, Band Neuts % (Manual) 15 H, Lymphocytes % (Manual) 4 L, Monocytes % (Manual) 1, Myelocytes % 1 H, Nucleated RBCs # (Man) 2 H, Plt Morphology Comment Appears Decreased L 03/30/19 03:40: Sodium 139, Potassium 3.6, Chloride 106, Carbon Dioxide 24, Anion Gap 13, BUN 10, Creatinine 0.66, Estimated GFR (MDRD) Greater than 90, Glucose 136 H, Calcium 8.4, Total Bilirubin 0.8, AST 95 H, ALT 158 H, Alkaline Phosphatase 729 H, Serum Total Protein 5.9 L, Albumin 3.5, Globulin 2.4, Albumin /Globulin Ratio 1.5 Status: lab reviewed by me A/P - Problem (1) Aspiration into respiratory tract Current Visit: Yes Code(s): T17.908A - UNSP FB IN RESP TRACT, PART UNSP CAUSING OTH INJURY, INIT Status: Acute (2) Brain metastases Current Visit: Yes Code(s): C79.31 - SECONDARY MALIGNANT NEOPLASM OF BRAIN Status: Acute (3) Cranial nerve disorder Current Visit: Yes Code(s): G52.9 - CRANIAL NERVE DISORDER, UNSPECIFIED Status: Acute (4) Metastatic breast carcinoma Current Visit: Yes Code(s): C50.919 - MALIGNANT NEOPLASM OF UNSP SITE OF UNSPECIFIED FEMALE BREAST Status: Acute - Plan Plan: PEG tube placement today Continue discussions with spouse regarding prognosis
[2019-03-30 13:44] LABS: Vancomycin, Trough 8.5 ug/mL
[2019-03-30] MEDS ORDERED: Vancomycin 1.5 GRAM/300 ML BAG 1.5 GM in Premix Bag 1 BAG IVPB SCH (14:00)
[2019-03-30] MEDS: Lorazepam 2 MG/ML VIAL SLOW IVP PRN (14:07)
[2019-03-30] MEDS: Venlafaxine HCl XR 150 MG CAP PO SCH (14:13)
[2019-03-30] MEDS: Fluticasone Propionate Nasal Spray 16 gm Bottle NASAL SCH (14:15)
--- NOTE | 2019-03-30 15:10 | PRG ---
DATE OF SERVICE: 03/30/2019 SUBJECTIVE: Status post PEG. OBJECTIVE: VITAL SIGNS: Sats are 93% on 2 L, temperature 98, pulse 109, blood pressure 108/72. CHEST: No wheezing. Minimal crackles. CARDIAC: Normal S1 and S2. No gallops. ABDOMEN: No masses. LABORATORY DATA: Unremarkable. Cultures are negative. X-ray, stable small pleural effusion. PLAN: I would discontinue antibiotics all since there is no evidence of pneumonia. She is aspirating, but it is probably not infectious at this stage. Continue supportive care, eventually home. Disposition as per Oncology. Job ID: [id number]
--- NOTE | 2019-03-30 15:53 | OP ---
DATE OF PROCEDURE: 03/30/2019 PROCEDURE PERFORMED: Esophagogastroduodenoscopy with endoscopic gastrostomy tube placement. PREOPERATIVE DIAGNOSES: A 33-year-old female with metastatic breast cancer, dysphagia, failed modified barium swallow and aspiration pneumonia, undergoing esophagogastroduodenoscopy with endoscopic gastrostomy tube placement. POSTOPERATIVE DIAGNOSES: 1. Hiatus hernia. 2. A couple of gastric polyps of the gastric body. 3. Food material coating the posterior pharynx and also some in the esophageal lumen. She also had a small amount of food in the gastric antrum. DESCRIPTION OF PROCEDURE: The patient was placed on her back and was given sedation by Anesthesia Department. The patient was already on scheduled antibiotics and no further antibiotic was given. A bite block was placed. A Pentax video gastroscope under direct vision passed down the oropharynx, past the GE junction into the stomach and subsequently into the descending duodenum. The patient had some retained food density in the esophageal lumen just coating the mucosa and the patient had hiatus hernia. In the fundus, cardia, gastric body, and gastric antrum, no other lesions. There are a couple of gastric polyps. In the duodenal bulb and descending duodenum, no pathology seen. A gastrostomy tube site was marked by transillumination from inside and also by applying finger pressure over the abdominal wall to confirm the position of the G-tube placement. The site was cleaned and surgically prepped. The area was anesthetized with 1% Xylocaine infiltration. Over the site, a 16 Angiocath was advanced into the stomach. Through the Angiocath, a guidewire was advanced into the stomach. This was grasped with polypectomy snare and pulled outside the mouth. To the end of the guidewire protruding outside the mouth, a gastrostomy tube was connected. The wire was pulled back retrograde and left in place. A 0.5 to 0.75 cm sized incision was made in the skin and the subcutaneous tissue to facilitate the tube coming out. The patient was re-scoped again. There was no complication noted. The stomach decompressed and the scope was removed. RECOMMENDATIONS: 1. N.p.o. 2. May start tube feeding after 6:00 p.m. today. Job ID: [id number]
[2019-03-30] MEDS: HYDROcodone/Acetaminophen 10/325 mg Tablet PER TUBE PRN (18:08)
[2019-03-30] MEDS: Morphine 2 MG/ML SYRINGE SLOW IVP PRN (21:32)
[2019-03-30] MEDS ORDERED: diphenhydrAMINE 25 MG CAP PO PRN (22:04)
[2019-03-30] MEDS: LEVORPHANOL 2 MG PER TUBE SCH (22:17)
[2019-03-31] MEDS: Piperacillin/Tazobactam 3.375 GM in Sodium Chloride 0.9% 100 ML IVPB SCH ×2 (02:19→18:24)
[2019-03-31] MEDS: HYDROcodone/Acetaminophen 10/325 mg Tablet PER TUBE PRN (02:31)
[2019-03-31] MEDS: LEVORPHANOL 2 MG PER TUBE SCH ×3 (06:21→21:47)
--- NOTE | 2019-03-31 08:11 | PDOC.HOSPP ---
- Subjective Encounter Date: 03/31/19 Encounter Time: 08:09 Subjective: 33 y/o female with metastatic breast cancer with mets to brain, liver and spine etc, and associated with vocal cord dysfunction and dysphagia admitted with worsening SOB. S/p PEG tube placement and now on tube feeding. Still sOb especially with exertion - Objective Vital Signs & Weight: Vital Signs (12 hours) Temp Pulse Resp BP Pulse Ox 03/31/19 04:00 98.0 F 104 H 20 99/64 93 L 03/31/19 00:33 113 H 20 94 L 03/31/19 00:10 98.4 F 110 H 18 105/72 95 Weight Admit Weight 167 lb Weight 167 lb I&O: 03/30/19 03/31/19 04/01/19 06:59 06:59 06:59 Intake Total 1970 1316 Output Total 950 3300 300 Balance -950 -8670 1016 Result Diagrams: 03/30/19 03:40 03/30/19 03:40 Hospitalist ROS - Medication Medications: Active Medications Generic Name Dose Route Start Last Admin Trade Name Freq PRN Reason Stop Dose Admin Hydrocodone Bitart/Acetaminophen 2 tab 03/30/19 18:00 03/31/19 02:31 [place] 10/325 PER TUBE 2 tab Q4H PRN Administration Pain Albuterol/Ipratropium 3 ml 03/28/19 19:00 03/31/19 00:33 Duoneb NEB 3 ml [id number] SARAH Administration Fluticasone Propionate 0 gm 03/30/19 09:00 03/30/19 14:15 Flonase Nasal [place] NASAL 1 spr DAILY SARAH Administration Sodium Chloride 1,000 mls @ 75 mls/hr 03/28/19 17:45 03/30/19 19:56 Normal Saline 0.9% IV 1,000 mls .[id number] SARAH Administration Lorazepam 0.5 mg 03/28/19 17:43 03/30/19 14:07 Ativan SLOW IVP 0.5 mg Q6H PRN Administration Anxiety/Agitation Mometasone Furoate/Formoterol Fumar 2 puff 03/28/19 18:30 03/30/19 19:56 Dulera 200 Mcg/5 Mcg Inhaler INH 2 puff BID-RT SARAH Administration Morphine Sulfate 2 mg 03/28/19 18:08 03/30/19 21:32 Morphine SLOW IVP 2 mg Q4H PRN Administration Moderate to Severe Pain (6-10) Pantoprazole Sodium 40 mg 03/29/19 09:00 03/30/19 08:30 Protonix IVP 40 mg DAILY SARAH Administration Levorphanol 2mg 1 each 03/30/19 22:00 03/31/19 06:21 Patient's Home PER TUBE 1 each Medication Q8HR SARAH Administration Venlafaxine HCl 300 mg 03/29/19 09:00 03/30/19 14:13 Effexor Xr PO Not Given DAILY SARAH - Exam General Appearance: awake alert ENT: normocephalic atraumatic Neck: supple, symmetric, no JVD Heart: RRR Heart - other findings: tachycardic Respiratory: no wheezes, no rales, no ronchi, tachypneic Respiratory - other findings: fair air entry bilaterally with some transmitted sound. Gastrointestinal: soft, non-tender, non-distended, normal bowel sounds Gastrointestinal - other findings: PEG tube noted Extremities: no cyanosis, no edema Neurological: cranial nerve grossly intact, no new deficit Neurological - other findings: dysphonia noted Psychiatric: A&O x 3 Hosp A/P (1) Acute respiratory failure with hypoxia Code(s): J96.01 - ACUTE RESPIRATORY FAILURE WITH HYPOXIA Status: Acute (2) Aspiration into respiratory tract Code(s): T17.908A - UNSP FB IN RESP TRACT, PART UNSP CAUSING OTH INJURY, INIT Status: Acute (3) Brain metastases Code(s): C79.31 - SECONDARY MALIGNANT NEOPLASM OF BRAIN Status: Acute (4) Cranial nerve disorder Code(s): G52.9 - CRANIAL NERVE DISORDER, UNSPECIFIED Status: Acute (5) Lung metastases Code(s): C78.00 - SECONDARY MALIGNANT NEOPLASM OF UNSPECIFIED LUNG Status: Acute (6) Metastatic breast carcinoma Code(s): C50.919 - MALIGNANT NEOPLASM OF UNSP SITE OF UNSPECIFIED FEMALE BREAST Status: Acute (7) Swallowing difficulty Code(s): R13.10 - DYSPHAGIA, UNSPECIFIED Status: Acute (8) Abnormal LFTs Code(s): R94.5 - ABNORMAL RESULTS OF LIVER FUNCTION STUDIES Status: Acute - Plan DC antibiotics and IVF Continue oxygen supplementation Change tube feeding to bolus feeding instead of continuos Cancer treatment as per Oncology. can be discharged home if no inpatient chemotherapy isn planned by oncology. Consult case mgt to help with Discharge planning. patient with need home oxygen tube feed supplies
[2019-03-31] MEDS: Mometasone/Formoterol 120 PUFF INHALER INH SCH ×2 (08:17→19:15)
--- NOTE | 2019-03-31 08:48 | PRG ---
DATE OF SERVICE: 03/31/2019 SUBJECTIVE: This morning, she is better, less shortness of breath, less cough. No fever or chills. OBJECTIVE: VITAL SIGNS: Temperature 98, pulse 104, sats 90% on 2 L, blood pressure 90/64. CHEST: Minimal crackles. CARDIAC: Normal S1 and S2. No gallops. ABDOMEN: No masses. IMPRESSION: Metastatic breast cancer, bilateral pleural effusion, status post PEG, dysphagia, vocal cord dysfunction. PLAN: Disposition as per Oncology. She is pretty much ready to be discharged home any time, comfort care. Job ID: [id number]
[2019-03-31] MEDS ORDERED: metroNIDAZOLE 500 MG TAB PER TUBE SCH (09:00)
[2019-03-31] MEDS: Fluticasone Propionate Nasal Spray 16 gm Bottle NASAL SCH (09:49)
[2019-03-31] MEDS ORDERED: Bisacodyl 10 MG SUPP PR SCH (10:45)
[2019-03-31] MEDS: Venlafaxine HCl XR 150 MG CAP PO SCH (11:57)
[2019-03-31] MEDS: Lorazepam 2 MG/ML VIAL SLOW IVP PRN ×3 (12:20→19:56)
[2019-03-31] MEDS ORDERED: Sodium Chloride 0.9% 500 ML IVPB SCH (13:30)
[2019-03-31] MEDS: Morphine 2 MG/ML SYRINGE SLOW IVP PRN ×5 (13:38→23:15)
[2019-03-31] MEDS ORDERED: Morphine 4 MG/ML VIAL ONE (14:44)
[2019-03-31] MEDS ORDERED: Morphine 2 MG/ML SYRINGE SLOW IVP SCH (15:00)
--- NOTE | 2019-03-31 16:12 | PDOC.MOPN ---
Interval History: she was doing well this morning until she started coughing this afternoon and has extreme pain now. can't breathe or move - Vital Signs Vital Signs: Vital Signs (12 hours) Temp Pulse Resp BP BP BP Pulse Ox 03/31/19 12:51 122 H 16 91 L 03/31/19 12:30 98.2 F 133 H 16 109/68 109/69 106/52 L 92 L 03/31/19 08:21 93 L 03/31/19 08:20 70 16 93 L 03/31/19 08:17 70 16 93 L 03/31/19 08:00 98.1 F 109 H 28 H 99/65 98 Weight Admit Weight 167 lb Weight 167 lb - Physical Exam General: Severe distress HEENT: Atraumatic Lungs: Other (bilateral decreased BS) Cardiovascular: Regular rate, Other (tachy) Abdomen: Other (very tender to palpation with r/g, no overt peritoneal signs) Extremities: No clubbing, No edema - Labs Result Diagrams: 03/30/19 03:40 03/30/19 03:40 A/P - Problem (1) Metastatic breast carcinoma Current Visit: Yes Code(s): C50.919 - MALIGNANT NEOPLASM OF UNSP SITE OF UNSPECIFIED FEMALE BREAST Status: Acute (2) Brain metastases Current Visit: Yes Code(s): C79.31 - SECONDARY MALIGNANT NEOPLASM OF BRAIN Status: Acute (3) Cranial nerve disorder Current Visit: Yes Code(s): G52.9 - CRANIAL NERVE DISORDER, UNSPECIFIED Status: Acute (4) Swallowing difficulty Current Visit: Yes Code(s): R13.10 - DYSPHAGIA, UNSPECIFIED Status: Acute (5) Lung metastases Current Visit: Yes Code(s): C78.00 - SECONDARY MALIGNANT NEOPLASM OF UNSPECIFIED LUNG Status: Acute (6) Aspiration into respiratory tract Current Visit: Yes Code(s): T17.908A - UNSP FB IN RESP TRACT, PART UNSP CAUSING OTH INJURY, INIT Status: Acute - Plan Plan: 1. CT a/p 2. increase morphine and ativan 3. i had a long discussion regarding code status, she is insistent on being a full code 4. i had a long discussion about prognosis and her is aware she is dying 5. i discussed case with GI and pulmonary, she may need to be transferred to the ICU
--- NOTE | 2019-03-31 16:27 | CT ---
CT OF THE ABDOMEN AND PELVIS WITHOUT IV CONTRAST INDICATION: Severe abdominal pain following feeding tube placement yesterday COMPARISON: CT of the chest and abdomen with IV contrast dated 03/21/2019 FINDINGS: This examination is limited for the evaluation of solid organs and vascular structures due to the lac k of intravenous contrast. ABDOMEN: Lung bases: Small bilateral pleural effusions. Bibasilar reticulonodular opacities persist. Liver: Diffuse hepatic metastatic disease better characterized on prior exam. Gallbladder: Normal appearing. Pancreas: Normal. Adrenal glands: Normal. Spleen: Normal. Kidneys and ureters: Normal. No hydronephrosis. Vasculature: Normal. Lymph nodes:Enlarged upper abdominal lymphadenopathy is better detailed on the CT examination perform ed on 03/21/2019 Free fluid in abdomen:No free fluid is evident. PELVIS: Small and large bowel: There is a left upper quadrant percutaneous gastrostomy tube. The inflated gas trostomy bulb resides within the lumen of the proximal gastric body. Small amount of gas is seen within the upper abdominal cavity consistent with patient's recent postoperative state. No large amou nt of free fluid is seen within the upper abdomen. Appendix:Normal Bladder: Normal. Rectal and perirectal soft tissues:Normal. Reproductive structures: Normal. Free fluid in pelvis: No free fluid is evident. Lymphadenopathy pelvis: No lymphadenopathy is evident. Osseous structures: Diffuse osseous metastatic disease is stable. The superior endplate wedge narciso jessica abnormality at T11 is stable. Mild endplate compression abnormalities of T12 is stable. Soft tissues:Normal. IMPRESSION: 1. Interval placement of a left upper quadrant gastrostomy tube. The tube bulb projects in the region of the lumen of the stomach. Gastrografin contrast injection through the peg catheter with a follow-up KUB may be helpful to confirm definite intraluminal location of the gastrostomy tube. 2. Small amount of free air within the upper abdomen is consistent with the patient's recent postoper ative state. 3. Small bilateral pleural effusions with persistent bibasilar reticular nodular opacities. 4. Stable hepatic metastatic disease. Stable malignant lymphadenopathy of the upper abdomen. Stable d iffuse osseous metastatic disease with pathologic compression abnormalities at T11 and T12.
[2019-03-31] MEDS ORDERED: Lactated Ringer's 1,000 ML IV SCH ×3 (17:00→19:38)
[2019-03-31 17:20] LABS: Anion Gap 16 mmol/L (10-20); BUN (Urea Nitrogen) 11 mg/dL (7.0-18.7); Calc. Creatinine Clearance 154 mL/min (70-130); Calcium 8.3 mg/dL (7.8-10.44); Carbon Dioxide 22 mmol/L (22-29); Chloride 103 mmol/L (98-107); Estimated GFR-MDRD Greater than 90; Glucose 129 mg/dL (70-105); Potassium 3.4 mmol/L (3.5-5.1); Sodium 138 mmol/L (136-145)
[2019-03-31 18:10] LABS: Actual Bicarbonate (HCO3a) 22.4 mEq/L (22-28); Base Excess (BEa) 0.6 mEq/L (-2.0 to +3.0); CO2 Tension 27.9 mmHg (35.0-45.0); Calcium, Ionized 1.08 mmol/L (1.12-1.30); Carboxyhemoglobin (COHb) 1.5 gm% (0.0-3.0); Hemoglobin (Hb) 12.8 g/dL (12.0-16.0); Potassium - ABG Lab 3.52 mmol/L (3.70-5.30); pH, Arterial 7.52 (7.35-7.45)
[2019-03-31] MEDS ORDERED: Ketorolac Tromethamine 30 MG/ML VIAL IVP SCH (18:15)
[2019-03-31 18:29] LABS: O2 Tension (PaO2) 56.8 mmHg (80.0-100.0)
[2019-03-31 18:30] LABS: ALV-art Gradient 165.005 (0-20); Puncture Site LRA
[2019-03-31] MEDS ORDERED: Milk Of Magnesia 30 ML UDCUP PER TUBE SCH (19:45)
[2019-03-31] MEDS ORDERED: Mineral Oil PER 1 ML PER TUBE SCH (19:45)
[2019-03-31] MEDS ORDERED: Polyethylene Glycol 3350 17 GM Packet PER TUBE SCH (19:45)
[2019-03-31] MEDS: guaiFENesin ER 600 MG TAB PO SCH (20:55)
--- NOTE | 2019-03-31 20:58 | PRG ---
DATE OF SERVICE: 03/31/2019 REASON FOR CONSULTATION: Dysphagia. SUBJECTIVE: The patient underwent EGD with percutaneous gastrostomy tube placement yesterday that was fairly uneventful with no perioperative complications. Overnight, she was started on tube feeds and had been advanced to approximately 50 mL/hour with no significant problems as of yet. However, earlier this afternoon, she experienced increased coughing spontaneously that generated increased left upper quadrant abdominal pain that radiated to the left shoulder concerning for a postoperative complication. Subsequently, she underwent an urgent CT scan, which showed no significant abnormalities in this region that may be contributing to her pain. Currently with her pain under moderate control with the current pain regimen, she also states that she has increased abdominal pain centered primarily around the percutaneous gastrostomy tube site, but otherwise denies any vomiting, fevers, chills, or GI bleeding. OBJECTIVE: VITAL SIGNS: Temperature 98.2, pulse 146, blood pressure 109/68, respiratory rate 20, and saturating 100% on high-flow oxygen. GENERAL: The patient was lying in bed, in moderate to severe distress. Alert and oriented x4. Moderate conversational dyspnea secondary to pain. CARDIOVASCULAR: Tachycardic rate but regular rhythm. RESPIRATORY: Tachypnea with resistance to air flow in all lung cazares. The patient was also exhibiting splinting. ABDOMEN: Hypoactive bowel sounds. Soft. Mild abdominal distention. Significant tenderness to palpation in the left upper quadrant centered around the percutaneous gastrostomy tube site; however, the PEG tube does not exhibit any increased erythema, skin breakdown, or purulence around the PEG tube site itself. EXTREMITIES: No cyanosis, clubbing, or edema. LABORATORY DATA: CBC with a white blood cell count of 5, hemoglobin 12, hematocrit 36.4, and platelets 64. Chemistry with a sodium of 138, potassium 3.4, chloride 103, CO2 of 22, BUN 11, creatinine 0.62, and glucose 129. Lactic acid 2.6. IMAGING DATA: CT of the abdomen and pelvis was obtained on March 31, 2019, which showed interval placement of a left upper quadrant gastrostomy tube with the tube projecting into the region of the lumen of the stomach with a minimal amount of free air suggestive of a postoperative state. No free fluid was seen within the upper abdomen consistent with perforation or tube feeds. The hepatic metastases, bony metastases, and enlarged lymph nodes were stable when compared to previous and also shows small bilateral pleural effusions with persistence of bibasilar reticulonodular opacities. ASSESSMENT AND PLAN: The patient is a 33-year-old female with past medical history of anxiety; depression; H pylori; gastritis, status post treatment; paralyzed vocal cord; delayed gastric emptying; and metastatic breast cancer with metastatic disease to the lungs, liver, brain, and bone, presenting with increased shortness of breath concerning for aspiration pneumonia and oropharyngeal dysphagia, now status post PEG tube placement. Oropharyngeal dysphagia: The patient is presenting with a modified barium swallow performed on March 24, 2019, showing aspiration with all food consistencies and inability to swallow 13-mm tablet. She is also presenting with increased tachypnea, conversational dyspnea, and imaging findings concerning for aspiration pneumonia. She subsequently underwent esophagogastroduodenoscopy with PEG tube placement on March 30, 2019, with no immediate perioperative complications. However, she is now experiencing significant pain around the PEG tube site with radiation to the left shoulder with CT findings negative for overt abnormalities other than postsurgical change. At this time, the origin of her pain is unclear but could be primarily due to just the placement of the PEG tube itself with radiation of the pain to the left shoulder with irritation of the diaphragm. However, with her delayed gastric emptying, her pain may also be attributed to attempting to increase her tube feeds to goal and not allowing time for her stomach to empty appropriately (however, she is not having tube feeds come out from around the tubing itself). RECOMMENDATIONS: 1. Pain control per primary team. 2. We would continue to monitor patient for any other postoperative complications. 3. We would hold tube feeds for now and restart at a lower rate given the possibility of gastric expansion and pain from that. 4. Antibiotics per primary team. 5. Agree with transferring the patient to an intermediate care bed given her tachycardia, tachypnea, and increased pain. We will continue to follow. Please call with any questions. Job ID: [id number]
[2019-03-31 21:12] LABS: Lactic Acid 2.1 mmol/L (0.5-2.2)
[2019-04-01] MEDS: Piperacillin/Tazobactam 3.375 GM in Sodium Chloride 0.9% 100 ML IVPB SCH ×5 (00:46→23:30)
[2019-04-01] MEDS: Ketorolac Tromethamine 30 MG/ML VIAL IVP SCH ×3 (00:46→14:39)
[2019-04-01] MEDS: Lorazepam 2 MG/ML VIAL SLOW IVP PRN ×3 (00:54→18:00)
[2019-04-01] MEDS: Morphine 2 MG/ML SYRINGE SLOW IVP PRN (02:04)
[2019-04-01] MEDS: Acetaminophen 1,000 MG in Premix Bag 1 BAG IVPB PRN (03:44)
[2019-04-01 05:16] LABS: Albumin 3.4 g/dL (3.5-5.0); Anion Gap 14 mmol/L (10-20); BUN (Urea Nitrogen) 15 mg/dL (7.0-18.7); BUN/Creatinine Ratio 22.06; Calc. Creatinine Clearance 141 mL/min (70-130); Calcium 8.4 mg/dL (7.8-10.44); Carbon Dioxide 25 mmol/L (22-29); Chloride 104 mmol/L (98-107); Estimated GFR-MDRD Greater than 90; Glucose 92 mg/dL (70-105); Magnesium 2.2 mg/dL (1.6-2.6); Phosphorus 3.3 mg/dL (2.3-4.7); Potassium 3.7 mmol/L (3.5-5.1); Sodium 139 mmol/L (136-145)
[2019-04-01] MEDS: LEVORPHANOL 2 MG PER TUBE SCH ×3 (06:09→21:36)
[2019-04-01] MEDS: Mometasone/Formoterol 120 PUFF INHALER INH SCH ×2 (07:43→18:33)
[2019-04-01 08:24] LABS: Base Excess (BEa) -0.2 mEq/L (-2.0 to +3.0); CO2 Tension 37.5 mmHg (35.0-45.0); Calcium, Ionized 1.14 mmol/L (1.12-1.30); Carboxyhemoglobin (COHb) 0.9 gm% (0.0-3.0); Hemoglobin (Hb) 11.8 g/dL (12.0-16.0); O2 Tension (PaO2) 135.7 mmHg (80.0-100.0); Potassium - ABG Lab 3.56 mmol/L (3.70-5.30); pH, Arterial 7.42 (7.35-7.45)
[2019-04-01 08:26] LABS: ALV-art Gradient 173.925 (0-20); Puncture Site LB
[2019-04-01 08:48] LABS: #Lymphocytes 0.5 thou/uL (1.20-3.40); #Monocytes 0.3 thou/uL (0.11-0.59); #Neutrophils 3.6 thou/uL (1.40-6.50); %Basophils 0.6 % (0.0-1.0); %Eosinophils 0.7 % (0.0-10.0); %Lymphocytes 11.2 % (21.0-51.0); %Monocytes 5.6 % (0.0-10.0); %Neutrophils 81.9 % (42.0-75.0); Hemoglobin 11.2 g/dL (12.0-16.0); Mean Corpuscular HGB CONC 33.4 g/dL (32.0-36.0); Mean Corpuscular Hemoglobin 30.4 pg (27.0-31.0); Mean Platelet Volume 8.7 fL (7.4-10.4); Platelet Count 58 thou/uL (130-400); RBC Distribution Width 15.9 % (11.5-14.5); Red Blood Cell (RBC) Count 3.69 mill/uL (4.20-5.40); White Blood Cell (WBC) Count 4.3 thou/uL (4.8-10.8)
--- NOTE | 2019-04-01 09:12 | PRG ---
DATE OF SERVICE: 04/01/2019 SUBJECTIVE: This morning, she says she is feeling better, less pain, less shortness of breath. OBJECTIVE: VITAL SIGNS: She is on high-flow, saturations 100%. Temperature 99 , blood pressure 120\76_ respiratory rate 18, pulse 100. CHEST: With crackles without any wheezing. CARDIAC: Sinus tach. ABDOMEN: Soft. LABORATORY DATA: White count 4000, hemoglobin and hematocrit are 11 and 33, platelet count is 58,000. PO2 on the BiPAP was 135, pCO2 35 ph 7.43. High- flow at 40 L. Chemistry panel unremarkable. She had a CT abdomen, which showed the PEG in the stomach was normal. IMPRESSION: 1. Status post PEG with severe abdominal pain, improved. 2. Metastatic breast cancer, bilateral pleural effusion, respiratory failure. Agree with comfort care at this stage. Continue neb treatments. PT, supportive care, and follow. Job ID: [id number] MTDD
--- NOTE | 2019-04-01 09:38 | RAD ---
Chest AP view INDICATION: CHF COMPARISON: March 30, 2019 at 7:16 AM FINDINGS: Lungs:There is worsening infrahilar airspace opacities Cardiac silhouette:There is stable cardiomegaly Pulmonary vasculature:There is worsening pulmonary vascular congestion and perihilar edema Pleural spaces:Bilateral pleural effusions are increased in size, now small to moderate. Upper abdomen:Surgical clips are again seen involving the right lower chest wall. Osseous structures: Vertebral plasty change at T5 is stable. Additional findings:Left chest wall port is unchanged. No pneumothorax. IMPRESSION: Worsening CHF
--- NOTE | 2019-04-01 09:58 | PDOC.HOSPP ---
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 S/p PEG tube placement and now on tube feeding. Patient developed worsening SOB and tachycardia hence was transfered to [facility] after Code green. Sleeping. - Objective Vital Signs & Weight: Vital Signs (12 hours) Temp Pulse Resp Pulse Ox 04/01/19 08:00 99.1 F 100 04/01/19 07:44 100 04/01/19 07:43 120 H 17 04/01/19 03:15 99.5 F 04/01/19 02:30 100 03/31/19 23:40 100 03/31/19 23:36 98.1 F Weight Admit Weight 167 lb Weight 167 lb Most Recent Monitor Data Heart Rate from ECG 122 NIBP 109/75 NIBP BP-Mean 86 Respiration from ECG 26 SpO2 100 I&O: 03/31/19 04/01/19 04/02/19 06:59 06:59 06:59 Intake Total 1970 2666 Output Total 3300 1200 Balance -1330 1466 Result Diagrams: 04/01/19 08:21 04/01/19 03:30 Hospitalist ROS - Medication Medications: Active Medications Generic Name Dose Route Start Last Admin Trade Name Freq PRN Reason Stop Dose Admin Hydrocodone Bitart/Acetaminophen 2 tab 03/30/19 18:00 03/31/19 02:31 [place] 10/325 PER TUBE 2 tab Q4H PRN Administration Pain Albuterol/Ipratropium 3 ml 03/28/19 19:00 04/01/19 07:43 Duoneb NEB 3 ml [id number] SARAH Administration Fluticasone Propionate 0 gm 03/30/19 09:00 03/31/19 09:49 Flonase Nasal [place] NASAL 1 spr DAILY SARAH Administration Guaifenesin 1,200 mg 03/31/19 21:00 03/31/19 20:55 Mucinex PO 1,200 mg Q12HR SARAH Administration Piperacillin Sod/Tazobactam 100 mls @ 200 mls/hr 03/31/19 18:00 04/01/19 05: 15 Sod 3.375 gm/ Sodium Chloride IVPB 100 mls Q6HR SARAH Administration Acetaminophen 1,000 mg/ Device 100 mls @ 400 mls/hr 04/01/19 03:34 04/01/19 03:44 IVPB 04/02/19 03:35 100 mls Q6H PRN Administration Fever/Mild Pain Ketorolac Tromethamine 30 mg 03/31/19 23:59 04/01/19 05:15 Toradol IVP 04/01/19 12:01 30 mg Q6HR SARAH Administration Lorazepam 0.5 mg 03/31/19 15:39 04/01/19 04:41 Ativan SLOW IVP 0.5 mg Q2H PRN Administration Anxiety Mometasone Furoate/Formoterol Fumar 2 puff 03/28/19 18:30 04/01/19 07:43 Dulera 200 Mcg/5 Mcg Inhaler INH 2 puff BID-RT SARAH Administration Morphine Sulfate 2 mg 03/31/19 15:40 04/01/19 02:04 Morphine SLOW IVP 2 mg Q2H PRN Administration Pain Levorphanol 2mg 1 each 03/30/19 22:00 04/01/19 06:09 Patient's Home PER TUBE 1 each Medication Q8HR SARAH Administration Simethicone 80 mg 03/31/19 21:00 03/31/19 20:54 Mylicon Drops 40 Mg/0.6ml Drop PER TUBE 04/01/19 21:01 80 mg QID SARAH Administration Sodium Chloride 10 ml 03/31/19 09:00 04/01/19 08:44 Flush - Normal Saline IVF Not Given Q12HR SARAH Venlafaxine HCl 150 mg 03/31/19 21:00 03/31/19 20:56 Effexor PER TUBE 150 mg BID SARAH Administration - Exam General - other findings: sleeping Eye: anicteric sclera ENT: normocephalic atraumatic Neck: supple Heart: RRR Heart - other findings: tachycardic Respiratory - other findings: fair air entry with coarse transmitted sound Gastrointestinal: soft, non-distended, normal bowel sounds Gastrointestinal - other findings: PEG tube noted Extremities: no cyanosis Neurological: cranial nerve grossly intact Neurological - other findings: sleeping Hosp A/P (1) Acute respiratory failure with hypoxia Code(s): J96.01 - ACUTE RESPIRATORY FAILURE WITH HYPOXIA Status: Acute (2) Aspiration into respiratory tract Code(s): T17.908A - UNSP FB IN RESP TRACT, PART UNSP CAUSING OTH INJURY, INIT Status: Acute (3) Brain metastases Code(s): C79.31 - SECONDARY MALIGNANT NEOPLASM OF BRAIN Status: Acute (4) Cranial nerve disorder Code(s): G52.9 - CRANIAL NERVE DISORDER, UNSPECIFIED Status: Acute (5) Lung metastases Code(s): C78.00 - SECONDARY MALIGNANT NEOPLASM OF UNSPECIFIED LUNG Status: Acute (6) Metastatic breast carcinoma Code(s): C50.919 - MALIGNANT NEOPLASM OF UNSP SITE OF UNSPECIFIED FEMALE BREAST Status: Acute (7) Swallowing difficulty Code(s): R13.10 - DYSPHAGIA, UNSPECIFIED Status: Acute (8) Abnormal LFTs Code(s): R94.5 - ABNORMAL RESULTS OF LIVER FUNCTION STUDIES Status: Acute (9) Bilateral pulmonary infiltrates on CXR Code(s): R91.8 - OTHER NONSPECIFIC ABNORMAL FINDING OF LUNG FIELD Status: Acute (10) Bilateral pleural effusion Code(s): J90 - PLEURAL EFFUSION, NOT ELSEWHERE CLASSIFIED Status: Acute - Plan Antibiotics restarted yesterday due to acute decompensation. Will add fluconazole for possible fungal infection. Continue oxygen supplementation NPO to continue. DC IVF due to worsening infiltrates and effusion. Other treatments as per Pulm and Oncology
[2019-04-01] MEDS ORDERED: Fluconazole 100 MG TAB PER TUBE SCH (10:00)
[2019-04-01] MEDS: Fluticasone Propionate Nasal Spray 16 gm Bottle NASAL SCH (10:26)
[2019-04-01] MEDS: guaiFENesin ER 600 MG TAB PO SCH ×2 (10:26→21:36)
[2019-04-01] MEDS: HYDROcodone/Acetaminophen 10/325 mg Tablet PER TUBE PRN (14:39)
--- NOTE | 2019-04-01 15:34 | PDOC.PALFU ---
Palliative Care Follow-up Note Revisited resuscitation status with patient and . Patient confirms full resuscitative measures. She is wanting to see her mother who is also in ICU. Plan is to have her mother taken by wheelchair to her daughters room. Patient remains fatigued, with labored respirations. Visited at length with patient while their daughter was with [facility]. expressed concern over his daughter, the entire situation and his wifes terminal condition. Therapeutic listening. Will continue to support patient, family, and assist with goals of care that are related to disease trajectory.
--- NOTE | 2019-04-01 15:51 | PQF ---
LACHELLE GAY TONI MD [phone] [facility]- B10 [id number] CLINICAL DOCUMENTATION IMPROVEMENT CLARIFICATION FORM: ICD-10 Updated PLEASE DO AN ADDENDUM TO THE PROGRESS NOTE WITH ANY DOCUMENTATION UPDATES OR ADDITIONS AND CARRY THROUGH TO DC SUMMARY. THANK YOU. DATE: 04/01/2019 ATTN: DR. Linda BECKETT Please exercise your independent, professional judgment in responding to the clarification form. Clinical indicators are provided on the bottom of this form for your review. Please check appropriate box(s): [ ] Aspiration Pneumonia [ ] Empirically treating Gram Negative Pneumonia [ ] Empirically treating Anaerobic Pneumonia [ ] Pneumonia secondary to (specify organism / underlying disease) [ ] Simple Pneumonia [ ] Other diagnosis [ X ] Unable to determine- NOT MY PATIENT In addition, please specify: Present on Admission (POA): [ ] Yes [ ] No [ ] Unable to determine For continuity of documentation, please document condition throughout progress notes and discharge summary. Thank You. CLINICAL INDICATORS - SIGNS / SYMPTOMS / LABS / RESULTS AND LOCATION IN MR 03/28 H&P (SAMANTHAKLED) IMPRESSION AND PLAN: 2). POSSIBLE PNEUMONIA. SHE HAS INFILTRATES CONCERNING FOR POSSIBLE MULTILOBAR PNEUMONIA; HOWEVER, WHITE COUNT IS NORMAL. SHE IS GENERALLY AFEBRILE. WILL COVER WITH BROAD-SPECTRUM ANTIBIOTICS GIVEN HER UNDERLYING CANCER. 03/29 PN (ABNER) PLAN: ACUTE RESPIRATORY FAILURE WITH POSSIBLE PNEUMONIA 03/29 PN (ESA) A/P : ASPIRATION PNEUMONIA 2/2 TO OROPHARYNGEAL DYSPHAGIA. THE PT HAD MODIFIED BARIUM SWALLOW ON 03/24/19 AT [facility] WITH FINDINGS CONSISTENT WITH ASPIRATION WITH ALL FOOD CONSISTENCIES. 03/30 CHEST X-RAY: IMPRESSION: COMPONENT OF PNEUMONIA IS SUSPECTED. 03/30 PN (OBI ) VOCAL CORD DYSFUNCTION AND DYSPHAGIA ADMITTED WITH SOB. NOW NPO. PEG TUBE PLANNED. NO FEVER. A/P: 7). SWALLOWING DIFFICULTY, DYSPHAGIA 03/30 PN (CORTES) " I WOULD DISCONTINUE ANTIBIOTICS ALL SINCE THERE IS NO EVIDENCE OF PNEUMONIA. SHE IS ASPIRATING, BUT IT IS PROBABLY NOT INFECTIOUS AT THIS STAGE." 03/31 PN (FLEENER) A/P 6). ASPIRATION INTO RESPIRATORY TRACT 03/31 PN (SULTZ) ASSESSMENT: PRESENTING WITH INCREASED SHORTNESS OF BREATH CONCERNING FOR ASPIRATION PNEUMONIA AND OROPHARYNGEAL DYSPHAGIA, NOW STATUS POST PEG TUBE PLACEMENT. RISK: VOCAL CORD DYSFUNCTION, DYSPHAGIA, SWALLOWING DIFFICULTY (OBI/ PN ) 03/30 TREATMENTS: PULMONOLOGY CONSULT () ZOSYN IV ( 03/30-PRESENT) VANCOMYCIN IV (03/29-03/30) SUPPLEMENTAL OXYGEN (03/28-PRESENT) THANK YOU! DALY (This form is maintained as a part of the permanent medical record) 2014 [employer] All Rights Reserved [email or web address] [phone] MTDD
--- NOTE | 2019-04-01 15:58 | PDOC.MOPN ---
Interval History: breathing improved, pain controlled - Vital Signs Vital Signs: Vital Signs (12 hours) Temp Pulse Resp Pulse Ox 04/01/19 15:45 99.9 F H 04/01/19 12:39 129 H 24 H 100 04/01/19 11:38 99.1 F 04/01/19 08:00 99.1 F 100 04/01/19 07:44 100 04/01/19 07:43 120 H 17 Weight Admit Weight 167 lb Weight 167 lb Most Recent Monitor Data Heart Rate from ECG 134 NIBP 120/77 NIBP BP-Mean 91 Respiration from ECG 22 SpO2 97 - Physical Exam General: Alert, Oriented x3, No acute distress HEENT: Atraumatic, PERRLA, EOMI, Mucous membr. moist/pink Cardiovascular: Regular rate Abdomen: Other Extremities: No clubbing, No cyanosis, No edema, Normal pulses, No tenderness/ swelling Skin: No rashes, No breakdown, No significant lesion Neurological: Other - Labs Result Diagrams: 04/01/19 08:21 04/01/19 03:30 Lab results: Laboratory Results - last 24 hr 04/01/19 09:59: Procalcitonin 0.83 04/01/19 08:21: WBC 4.3 L, RBC 3.69 L, Hgb 11.2 L, Hct 33.6 L, MCV 91.0, MCH 30.4, MCHC 33.4, RDW 15.9 H, Plt Count 58 L, MPV 8.7, Neutrophils % 81.9 H, Neutrophils % (Manual) Not Reportable, Lymphocytes % 11.2 L, Monocytes % 5.6, Eosinophils % 0.7, Basophils % 0.6, Neutrophils # 3.6, Lymphocytes # 0.5 L, Monocytes # 0.3, Eosinophils # 0.0, Basophils # 0.0 04/01/19 08:10: Specimen Type ARTERIAL, Puncture Site LB, Bicarbonate Actual 24.0, ABG pH 7.42, ABG pCO2 37.5, ABG pO2 135.7 H, ABG O2 Sat Calc/[place] 98.6 H, ABG O2 Content 16.4 L, ABG Base Excess -0.2, ABG Hematocrit 35.0 L, ABG Hemoglobin 11.8 L, ABG Oxyhemoglobin 97.4, ABG Carboxyhemoglobin 0.9, ABG Methemoglobin 0.30, ABG Deoxyhemoglobin 1.4, Clif Test NOT DONE, A-a O2 Gradient 173.925 H, Ionized Calcium 1.14, Mode of Support HFNC 40L/M, Spontaneous Rate 24, Inspired O2 50, Sodium 138, Potassium 3.56 L, Chloride 104 04/01/19 03:30: Sodium 139, Potassium 3.7, Chloride 104, Carbon Dioxide 25, Anion Gap 14, BUN 15, Creatinine 0.68, Estimated GFR (MDRD) Greater than 90, BUN/Creatinine Ratio 22.06, Glucose 92, Calcium 8.4, Phosphorus 3.3, Magnesium 2.2, Albumin 3.4 L 03/31/19 20:48: Lactic Acid 2.1 03/31/19 18:11: Lactic Acid 2.6 H 03/31/19 18:01: Specimen Type ARTERIAL, Puncture Site LRA, Bicarbonate Actual 22.4, ABG pH 7.52 H, ABG pCO2 27.9 L, ABG pO2 56.8 L*, ABG O2 Sat Calc/[place] 90.9 L, ABG O2 Content 16.1 L, ABG Base Excess 0.6, ABG Hematocrit 38.0, ABG Hemoglobin 12.8, ABG Oxyhemoglobin 89.3 L, ABG Carboxyhemoglobin 1.5, ABG Methemoglobin 0.30, ABG Deoxyhemoglobin 8.9 H, Clif Test POSITIVE, A-a O2 Gradient 165.005 H, Ionized Calcium 1.08 L, Mode of Support NC, Inspired O2 36, Sodium 136, Potassium 3.52 L, Chloride 102 03/31/19 16:46: B-Natriuretic Peptide Less than 10.0 03/31/19 16:46: Troponin I 0.026 03/31/19 16:46: Hgb 12.0, Hct 36.4 03/31/19 16:46: Sodium 138, Potassium 3.4 L, Chloride 103, Carbon Dioxide 22, Anion Gap 16, BUN 11, Creatinine 0.62, Estimated GFR (MDRD) Greater than 90, Glucose 129 H, Calcium 8.3 Status: lab reviewed by me A/P - Problem (1) Aspiration into respiratory tract Current Visit: Yes Code(s): T17.908A - UNSP FB IN RESP TRACT, PART UNSP CAUSING OTH INJURY, INIT Status: Acute (2) Brain metastases Current Visit: Yes Code(s): C79.31 - SECONDARY MALIGNANT NEOPLASM OF BRAIN Status: Acute (3) Cranial nerve disorder Current Visit: Yes Code(s): G52.9 - CRANIAL NERVE DISORDER, UNSPECIFIED Status: Acute (4) Metastatic breast carcinoma Current Visit: Yes Code(s): C50.919 - MALIGNANT NEOPLASM OF UNSP SITE OF UNSPECIFIED FEMALE BREAST Status: Acute - Plan Plan: PEG in, tube feedings on. Patient comfortable. Daughter at bedside. Supportive care remains full code.
--- NOTE | 2019-04-01 16:46 | PRG ---
DATE OF SERVICE: 04/01/2019 REASON FOR CONSULTATION: Dysphagia, status post PEG tube placement. SUBJECTIVE: During the course of the afternoon yesterday, the patient had a significant increase in her abdominal pain, centered in the left upper abdomen and radiating into the left chest, left arm, and left shoulder. This was associated with increased tachypnea and increased work of breathing in addition to decrease in her oxygen sats. A code green was called yesterday evening and the patient was subsequently transferred to [facility] for further evaluation. However, today the patient is doing much better with lessen pain. Her tachypnea has resolved and she is saturating well on 2 L nasal cannula. She does have a mild amount of abdominal bloating and has not had a bowel movement yet, but is much improved when compared to previous. Otherwise, she denies any nausea, vomiting, fevers, chills, or GI bleeding. OBJECTIVE: VITAL SIGNS: Temperature 99.9, pulse 134, blood pressure 120/77, respiratory rate 22, saturating 97% on 2 L nasal cannula. GENERAL: The patient was lying in bed, in no acute distress. Alert and oriented x4. Moderate conversational dyspnea noted. CARDIOVASCULAR: Tachycardic rate, but regular rhythm. RESPIRATORY: Tachypnea with mild resistance to air flow in the lung cazares and possible crackles in the left lower lobe. ABDOMEN: Normoactive bowel sounds. Soft. Mild abdominal distention. Tenderness to palpation in the left upper quadrant and around the PEG tube site itself. EXTREMITIES: No cyanosis, clubbing, or edema. LABORATORY DATA: CBC with a white blood cell count of 4.3, hemoglobin of 11.2, hematocrit 33.6, platelets 58. Chemistry with a sodium of 139, potassium 3.7, chloride 104, CO2 of 25, BUN 15, creatinine 0.68, glucose 92. IMAGING DATA: CT of the abdomen and pelvis was obtained on March 31, 2019, which showed interval placement of a left upper quadrant gastrostomy tube with a tube projecting within the stomach and was in appropriate position. There was some small air under the diaphragm that consistent with recent instrumentation. Small bilateral pleural effusions and persistent bibasilar reticulonodular opacities were also seen. Otherwise, her metastatic disease was relatively unchanged. ASSESSMENT AND PLAN: The patient is a 33-year-old female with past medical history of anxiety, depression, Helicobacter pylori gastritis, status post treatment, paralyzed vocal cord, delayed gastric emptying, and metastatic breast cancer with metastatic disease to the lungs, liver, brain and bone, presenting with shortness of breath consistent with aspiration pneumonia and oropharyngeal dysphagia, now status post PEG tube placement. Oropharyngeal dysphagia/PEG tube: The patient initially presented with what appeared to be an aspiration pneumonia with prior swallow studies indicative of aspiration. She ultimately underwent PEG tube placement on March 30, 2019, with no immediate perioperative complications; however, she did experience significant abdominal pain the day after it was placed with radiation of her pain to the left shoulder concerning for diaphragmatic involvement. However, CT scan also obtained on March 31, 2019, did not show any significant abnormalities that would contribute to this finding. At this time, the origin of her abdominal pain is unclear, but may have been related to the recent placement of the PEG tube in addition to increased coughing and irritation of the diaphragm associated with that further exacerbating her abdominal pain from the recent procedure. Currently, she is doing well, although the tube feeds were stopped secondary to the increased pain that the patient was having. With her delayed gastric emptying, having a continuous infusion of tube feeds may not necessarily be recommended to allow for adequate drainage, but liquids should move into the small intestines easily. I would recommend restarting her tube feeds, but advancing in a slower rate when compared to previous. RECOMMENDATIONS: 1. Pain control per primary team. 2. We will continue to monitor for any postoperative complications. 3. I would restart the tube feeds at a lower rate and advance the rate of installation at a slower rate as well. 4. Antibiotics per primary team. We will continue to follow. Please call with any questions. Job ID: [id number]
[2019-04-02] MEDS: Acetaminophen 1,000 MG in Premix Bag 1 BAG IVPB PRN (02:47)
[2019-04-02] MEDS: LEVORPHANOL 2 MG PER TUBE SCH ×3 (05:26→21:41)
[2019-04-02] MEDS: Piperacillin/Tazobactam 3.375 GM in Sodium Chloride 0.9% 100 ML IVPB SCH ×2 (05:26→13:18)
[2019-04-02 05:49] LABS: #Lymphocytes 0.4 thou/uL (1.20-3.40); #Monocytes 0.1 thou/uL (0.11-0.59); #Neutrophils 1.4 thou/uL (1.40-6.50); %Basophils 0.5 % (0.0-1.0); %Eosinophils 0.6 % (0.0-10.0); %Lymphocytes 19.4 % (21.0-51.0); %Monocytes 4.3 % (0.0-10.0); %Neutrophils 75.1 % (42.0-75.0); Hemoglobin 10.7 g/dL (12.0-16.0); Mean Corpuscular HGB CONC 32.6 g/dL (32.0-36.0); Mean Corpuscular Hemoglobin 29.5 pg (27.0-31.0); Mean Corpuscular Volume 90.3 fL (78.0-98.0); Mean Platelet Volume 8.5 fL (7.4-10.4); Platelet Count 55 thou/uL (130-400); RBC Distribution Width 15.7 % (11.5-14.5); Red Blood Cell (RBC) Count 3.63 mill/uL (4.20-5.40); White Blood Cell (WBC) Count 1.9 thou/uL (4.8-10.8)
[2019-04-02 06:08] LABS: ALT (SGPT) 135 U/L (8-55); AST (SGOT) 125 U/L (5-34); Albumin 3.3 g/dL (3.5-5.0); Alkaline Phosphatase 689 U/L (40-110); Anion Gap 15 mmol/L (10-20); BUN (Urea Nitrogen) 18 mg/dL (7.0-18.7); Bilirubin, Total 1.4 mg/dL (0.2-1.2); Calc. Creatinine Clearance 163 mL/min (70-130); Calcium 8.8 mg/dL (7.8-10.44); Carbon Dioxide 25 mmol/L (22-29); Chloride 103 mmol/L (98-107); Estimated GFR-MDRD Greater than 90; Globulin 2.5 g/dL (2.4-3.5); Glucose 84 mg/dL (70-105); Potassium 3.9 mmol/L (3.5-5.1); Protein, Total 5.8 g/dL (6.0-8.3); Sodium 139 mmol/L (136-145)
[2019-04-02] MEDS: Mometasone/Formoterol 120 PUFF INHALER INH SCH ×2 (07:14→18:10)
[2019-04-02] MEDS: guaiFENesin ER 600 MG TAB PO SCH ×2 (09:01→21:39)
[2019-04-02] MEDS: HYDROcodone/Acetaminophen 10/325 mg Tablet PER TUBE PRN (09:02)
[2019-04-02] MEDS: Fluticasone Propionate Nasal Spray 16 gm Bottle NASAL SCH ×2 (09:03→21:40)
--- NOTE | 2019-04-02 11:12 | PRG ---
DATE OF SERVICE: 04/02/2019 SUBJECTIVE: This morning, she is still short of breath, still coughing. She is tachy at 130, temperature 100, blood pressure 110/70, respiratory rate 18. CHEST: Bilateral crackles, no wheezing. CARDIAC: S3 gallop. ABDOMEN: Soft. LABORATORY DATA: AST is elevated to 125, white count 1000, H and H 10 and 32, platelet count 55. ASSESSMENT: 1. Pancytopenia from chemo, metastatic breast cancer. 2. Bilateral pleural effusion. 3. Sinus tachycardia. PLAN: Echo is being ordered. Otherwise, continue supportive care, PT, cough relief. Job ID: [id number]
--- NOTE | 2019-04-02 13:26 | PDOC.HOSPP ---
- Subjective Encounter Date: 04/02/19 Encounter Time: 10:25 Subjective: 33 y/o female with metastatic breast cancer with mets to brain, liver and spine etc, and associated with vocal cord dysfunction and dysphagia admitted with worsening SOB. S/p PEG tube placement and now on tube feeding. Patient developed worsening SOB and tachycardia on 03/31/2019 and was transfered to [facility] after Code green. Awake and more comfortable. coughing up more sputum. - Objective Vital Signs & Weight: Vital Signs (12 hours) Temp Pulse Resp Pulse Ox 04/02/19 10:33 102 F H 04/02/19 08:00 98 04/02/19 07:22 100.0 F H 04/02/19 07:14 132 H 33 H 04/02/19 02:00 28 H Weight Admit Weight 167 lb Weight 173 lb 4 oz Most Recent Monitor Data Heart Rate from ECG 142 NIBP 121/77 NIBP BP-Mean 91 Respiration from ECG 23 SpO2 96 I&O: 04/01/19 04/02/19 04/03/19 06:59 06:59 06:59 Intake Total 2666 1300 200 Output Total 1200 450 Balance 1466 850 200 Result Diagrams: 04/02/19 05:25 04/02/19 05:25 Hospitalist ROS - Medication Medications: Active Medications Generic Name Dose Route Start Last Admin Trade Name Freq PRN Reason Stop Dose Admin Hydrocodone Bitart/Acetaminophen 2 tab 03/30/19 18:00 04/02/19 09:02 [place] 10/325 PER TUBE 2 tab Q4H PRN Administration Pain Albuterol/Ipratropium 3 ml 03/28/19 19:00 04/02/19 07:14 Duoneb NEB 3 ml [id number] SARAH Administration Guaifenesin 1,200 mg 03/31/19 21:00 04/02/19 09:01 Mucinex PO 1,200 mg Q12HR SARAH Administration Piperacillin Sod/Tazobactam 100 mls @ 200 mls/hr 03/31/19 18:00 04/02/19 13: 18 Sod 3.375 gm/ Sodium Chloride IVPB 100 mls Q6HR SARAH Administration Lorazepam 0.5 mg 03/31/19 15:39 04/01/19 18:00 Ativan SLOW IVP 0.5 mg Q2H PRN Administration Anxiety Mometasone Furoate/Formoterol Fumar 2 puff 03/28/19 18:30 04/02/19 07:14 Dulera 200 Mcg/5 Mcg Inhaler INH 2 puff BID-RT SARAH Administration Morphine Sulfate 2 mg 03/31/19 15:40 04/01/19 02:04 Morphine SLOW IVP 2 mg Q2H PRN Administration Pain Levorphanol 2mg 1 each 03/30/19 22:00 04/02/19 05:26 Patient's Home PER TUBE 1 each Medication Q8HR SARAH Administration Sodium Chloride 10 ml 03/31/19 09:00 04/02/19 09:02 Flush - Normal Saline IVF 10 ml Q12HR SARAH Administration Venlafaxine HCl 150 mg 03/31/19 21:00 04/02/19 09:01 Effexor PER TUBE 150 mg BID SARAH Administration - Exam General Appearance: awake alert Eye: anicteric sclera ENT: normocephalic atraumatic Neck: symmetric, no JVD Heart: RRR Heart - other findings: tachycardic Respiratory - other findings: fair air entry with crackles and transmitted sound. Gastrointestinal: soft, non-distended, normal bowel sounds Gastrointestinal - other findings: PEG tube noted Extremities: no cyanosis, no edema Neurological: no new deficit Psychiatric: A&O x 3 Hosp A/P (1) Acute respiratory failure with hypoxia Code(s): J96.01 - ACUTE RESPIRATORY FAILURE WITH HYPOXIA Status: Acute (2) Aspiration into respiratory tract Code(s): T17.908A - UNSP FB IN RESP TRACT, PART UNSP CAUSING OTH INJURY, INIT Status: Acute (3) Brain metastases Code(s): C79.31 - SECONDARY MALIGNANT NEOPLASM OF BRAIN Status: Acute (4) Cranial nerve disorder Code(s): G52.9 - CRANIAL NERVE DISORDER, UNSPECIFIED Status: Acute (5) Lung metastases Code(s): C78.00 - SECONDARY MALIGNANT NEOPLASM OF UNSPECIFIED LUNG Status: Acute (6) Metastatic breast carcinoma Code(s): C50.919 - MALIGNANT NEOPLASM OF UNSP SITE OF UNSPECIFIED FEMALE BREAST Status: Acute (7) Swallowing difficulty Code(s): R13.10 - DYSPHAGIA, UNSPECIFIED Status: Acute (8) Abnormal LFTs Code(s): R94.5 - ABNORMAL RESULTS OF LIVER FUNCTION STUDIES Status: Acute (9) Bilateral pulmonary infiltrates on CXR Code(s): R91.8 - OTHER NONSPECIFIC ABNORMAL FINDING OF LUNG FIELD Status: Acute (10) Bilateral pleural effusion Code(s): J90 - PLEURAL EFFUSION, NOT ELSEWHERE CLASSIFIED Status: Acute - Plan Continue zosyn. DC Fluconazole due to worsening pancytopenia Get sputum culture Continue oxygen supplementation Restart tube feed as recommended by GI Other treatments as per Pulm and Oncology
--- NOTE | 2019-04-02 14:07 | PRG ---
DATE OF SERVICE: 04/02/2019 REASON FOR CONSULTATION: Dysphagia, status post PEG tube placement. SUBJECTIVE: The patient states that her left-sided abdominal pain and left-sided chest pain has improved when compared to yesterday with administration of pain medication and slowing of her tube feeds. Attempts to increase her tube feeds over the last 24 hours have been met with increased abdominal distention and increased left-sided pain. The nurses have also noticed a residual of approximately 200 to 250 mL of tube feeds left over throughout their shifts. Otherwise, the patient states that she is doing better, although she does continue to have tachypnea and conversational dyspnea. She notes that her cough continues as well, but has also improved from previous. Otherwise, she denies any nausea, vomiting, fevers, chills, or GI bleeding. OBJECTIVE: VITAL SIGNS: Temperature 102, heart rate 142, blood pressure 121/77, respiratory rate 23, saturating 96% on 2 L nasal cannula. GENERAL: The patient was lying in bed, in no acute distress. Alert and oriented x4. [id number] conversational dyspnea. CARDIOVASCULAR: Tachycardic rate, but regular rhythm. RESPIRATORY: Tachypnea with mild resistance to air flow in all lung cazares. ABDOMEN: Normoactive bowel sounds. Soft. Minimal abdominal distention. Tenderness to palpation in the left upper quadrant and around the PEG tube site itself. EXTREMITIES: No cyanosis, clubbing, or edema. LABORATORY DATA: CBC with a white blood cell count of 1.9, hemoglobin 10.7, hematocrit 32.8, platelets 55. Chemistry with a sodium of 139, potassium 3.9, chloride 103, CO2 of 25, BUN 18, creatinine 0.61, glucose 84, AST 125, ALT 135, alkaline phosphatase 689, total bilirubin 1.4. IMAGING DATA: No current GI imaging is available for review. ASSESSMENT AND PLAN: The patient is a 33-year-old female with a past medical history of anxiety; depression; Helicobacter pylori gastritis, status post treatment; paralyzed vocal cord; delayed gastric emptying, on gastric emptying study; and metastatic breast cancer with metastatic disease to the lungs, liver, brain, and bone; presenting with probable aspiration pneumonia with oropharyngeal dysphagia, now status post PEG tube placement. 1. Oropharyngeal dysphagia/PEG tube placement. The patient initially presented with findings consistent with aspiration pneumonia with modified barium swallow study showing inability to effectively swallow with evidence of aspiration as well. She ultimately underwent PEG tube placement on March 30, 2019, with no immediate perioperative complications. However, she did experience increased left-sided body pain primarily in the left upper abdomen and left chest radiating to the left arm today after placement of a PEG tube, but this seems to be improving. At this time, the origin of her pain seems to be more related to her increased coughing episodes and may have been made worse by the recent instrumentation with the PEG tube placement. Currently, she is doing well, although her tube feeds have not been advanced to goal secondary to increased abdominal pain/distention when increased. She is currently tolerating approximately 25 mL/hr, which is inadequate for nutritional purposes. However, she does have a concurrent diagnosis of delayed gastric emptying and may benefit from more bolus feeds and allowing time for the stomach to empty in between boluses, given this finding. Recommendations;. a. Pain control per primary team. b. Antibiotics per primary team. c. We will change the tube feeds to bolus administration with goal of 5 to 6 cans per day, but would start slowly and advance as tolerated with periods of time to allow appropriate gastric emptying. We will continue to follow. Please call with any questions. Job ID: [id number]
[2019-04-02] MEDS: Benzonatate 100 MG CAP PO SCH ×2 (15:53→21:39)
[2019-04-02] MEDS ORDERED: Ketorolac Tromethamine 30 MG/ML VIAL IVP SCH (17:00)
[2019-04-02] MEDS: Vancomycin HCl 1.5 GM in Sodium Chloride 0.9% 250 ML 300 ML IVPB SCH (18:47)
[2019-04-02] MEDS: Lorazepam 2 MG/ML VIAL SLOW IVP PRN (18:51)
[2019-04-02] MEDS: MEROPENEM 1 GM/50 ML 1 GM in Premix Bag 1 BAG IVPB SCH (21:38)
[2019-04-02] MEDS: Metoclopramide HCl 10 MG TAB PER TUBE SCH (21:38)
[2019-04-02] MEDS ORDERED: Meropenem 1 GM in Sodium Chloride 0.9% 100 ML IVPB SCH (22:00)
[2019-04-03] MEDS: Morphine 2 MG/ML SYRINGE SLOW IVP PRN ×2 (04:25→15:01)
[2019-04-03 05:24] LABS: #Lymphocytes 0.7 thou/uL (1.20-3.40); #Monocytes 0.2 thou/uL (0.11-0.59); #Neutrophils 2.8 thou/uL (1.40-6.50); %Basophils 0.4 % (0.0-1.0); %Eosinophils 0.4 % (0.0-10.0); %Lymphocytes 19.7 % (21.0-51.0); %Neutrophils 73.6 % (42.0-75.0); Hemoglobin 10.6 g/dL (12.0-16.0); Mean Corpuscular HGB CONC 33.2 g/dL (32.0-36.0); Mean Corpuscular Hemoglobin 29.8 pg (27.0-31.0); Mean Corpuscular Volume 89.9 fL (78.0-98.0); Mean Platelet Volume 8.2 fL (7.4-10.4); Platelet Count 62 thou/uL (130-400); RBC Distribution Width 15.6 % (11.5-14.5); Red Blood Cell (RBC) Count 3.55 mill/uL (4.20-5.40); White Blood Cell (WBC) Count 3.7 thou/uL (4.8-10.8)
[2019-04-03 05:32] LABS: ALT (SGPT) 101 U/L (8-55); AST (SGOT) 94 U/L (5-34); Albumin 3.1 g/dL (3.5-5.0); Alkaline Phosphatase 759 U/L (40-110); Anion Gap 15 mmol/L (10-20); BUN (Urea Nitrogen) 16 mg/dL (7.0-18.7); Bilirubin, Total 1.2 mg/dL (0.2-1.2); Calc. Creatinine Clearance 171 mL/min (70-130); Calcium 8.6 mg/dL (7.8-10.44); Carbon Dioxide 25 mmol/L (22-29); Chloride 101 mmol/L (98-107); Estimated GFR-MDRD Greater than 90; Globulin 2.7 g/dL (2.4-3.5); Glucose 95 mg/dL (70-105); Protein, Total 5.8 g/dL (6.0-8.3); Sodium 137 mmol/L (136-145)
[2019-04-03] MEDS: LEVORPHANOL 2 MG PER TUBE SCH ×3 (06:32→21:17)
[2019-04-03] MEDS: Acetaminophen 325 MG TAB PO PRN ×2 (06:32→18:16)
[2019-04-03] MEDS: MEROPENEM 1 GM/50 ML 1 GM in Premix Bag 1 BAG IVPB SCH ×3 (06:33→21:18)
[2019-04-03] MEDS: Vancomycin HCl 1.5 GM in Sodium Chloride 0.9% 250 ML 300 ML IVPB SCH ×2 (06:33→19:20)
[2019-04-03] MEDS: Mometasone/Formoterol 120 PUFF INHALER INH SCH ×2 (07:02→18:41)
[2019-04-03] MEDS: Metoclopramide HCl 10 MG TAB PER TUBE SCH ×3 (10:22→21:16)
[2019-04-03] MEDS: guaiFENesin ER 600 MG TAB PO SCH ×2 (10:22→21:15)
[2019-04-03] MEDS: Fluticasone Propionate Nasal Spray 16 gm Bottle NASAL SCH ×2 (10:23→21:16)
[2019-04-03] MEDS: Benzonatate 100 MG CAP PO SCH ×3 (10:25→21:15)
--- NOTE | 2019-04-03 12:03 | PRG ---
DATE OF SERVICE: 04/03/2019 SUBJECTIVE: This morning, she is awake, alert, and responsive. OBJECTIVE: VITAL SIGNS: Temperature 101.8, pulse 130, respiratory rate 24, blood pressure . GENERAL: Still short of breath. CHEST: Decreased breath sounds without any wheezing. CARDIAC: Normal S1, S2. No gallops. ABDOMEN: No masses. LABORATORY DATA: Alkaline phosphatase 759. White count 3000, H and H 10 and 32, platelet count is low. ASSESSMENT: Status post chemotherapy for metastatic carcinoma. PLAN: Continue supportive care. She was restarted on broad-spectrum antibiotics because of pancytopenia and chemotherapy. We will follow. Job ID: [id number]
--- NOTE | 2019-04-03 15:00 | PRG ---
DATE OF SERVICE: 04/03/2019 REASON FOR CONSULTATION: Dysphagia, status post PEG tube placement; malnutrition. SUBJECTIVE: Upon transferring the patient over to more bolus feeds yesterday, she has been able to tolerate the tube feeds better with no significant increase in her left-sided abdominal and left-sided chest pain. However, she has only been able to tolerate 1 to 2 carton/cans of Jevity, which is inadequate to maintain adequate nutrition. She states that with increasing amounts of food, it generates increased abdominal bloating prompting her to stop. Nursing staff has not noted any residuals with the institution of bolus-type feeding. She does continue to have some conversational dyspnea as well as some increased abdominal distention, but improved from previous. Otherwise, she denies any nausea, vomiting, chills, or GI bleeding. OBJECTIVE: VITAL SIGNS: Temperature 100.2, pulse 133, blood pressure 141/83, respiratory rate 21, saturating 100% on 2 L nasal cannula. GENERAL: The patient was lying in bed, in no acute distress. Alert and oriented x4. [id number] conversational dyspnea. CARDIOVASCULAR: Tachycardic rate, but regular rhythm. RESPIRATORY: Tachypnea with mild resistance to air flow in all lung cazares. ABDOMEN: Normoactive bowel sounds. Soft. Minimal abdominal distention. Tenderness to palpation in the left upper quadrant and around the PEG tube site itself, but improved from previous. EXTREMITIES: No cyanosis, clubbing, or edema. LABORATORY DATA: CBC with a white blood cell count of 3.7, hemoglobin 10.6, hematocrit 32, platelets 62. Chemistry with a sodium of 137, potassium 4, chloride 101, CO2 of 25, BUN 16, creatinine 0.58, glucose 95, AST 94, ALT 101, alkaline phosphatase 759, total bilirubin 1.2. IMAGING DATA: No current GI imaging is available for review. ASSESSMENT AND PLAN: The patient is a 33-year-old female with past medical history of anxiety; depression; Helicobacter pylori gastritis, status post treatment; paralyzed vocal cord; delayed gastric emptying; and metastatic breast cancer with metastatic disease to the lungs, liver, bone, and brain, presenting with aspiration pneumonia and oropharyngeal dysphagia, now status post percutaneous endoscopic gastrostomy tube placement. Oropharyngeal dysphagia/percutaneous endoscopic gastrostomy tube placement: The patient initially presented with aspiration pneumonia with a modified barium swallow confirming the presence of aspiration. She underwent a percutaneous endoscopic gastrostomy tube placement on March 30, 2019, with no immediate perioperative complications; however, over the next 24 hours, she had significantly increased left upper quadrant and left chest pain associated with increased coughing; however, this seems to have improved over the last 48 hours. Currently, she is doing well and able to tolerate bolus tube feeds, although based on her current consumption, it is not adequate enough to maintain adequate nutrition with barriers to increase her tube feeds including abdominal pain and distention. Recommendations: 1. Pain control per primary team. 2. Antibiotics per primary team. 3. We would continue bolus tube feeds right now in light of a concurrent diagnosis of delayed gastric emptying, but I encouraged the patient to consume more frequently to obtain the necessary calories to optimize her nutrition. Elevated liver function tests: On admission, the patient was noted to have an elevated AST, ALT, and significantly elevated alkaline phosphatase that had been downtrending during the course of this hospitalization. She continues to have downtrending of all of her enzymes except for alkaline phosphatase, most likely due to the presence of metastatic disease to both liver and bone. Recommendations: 1. We would continue to trend her LFTs and careful monitoring for signs of possible biliary obstruction secondary to metastatic disease. 2. Treatment of metastatic disease per primary oncology team. We will continue to follow. Please call with any questions. Job ID: [id number]
--- NOTE | 2019-04-03 15:27 | PDOC.HOSPP ---
- Subjective Encounter Date: 04/03/19 Encounter Time: 11:26 Subjective: 33 y/o female with metastatic breast cancer with mets to brain, liver and spine etc, and associated with vocal cord dysfunction and dysphagia admitted with worsening SOB. S/p PEG tube placement and now on tube feeding. Patient developed worsening SOB and tachycardia on 03/31/2019 and was transfered to [facility] after Code green. Developed fever associated with worsening cough and tachycardia. - Objective Vital Signs & Weight: Vital Signs (12 hours) Temp Pulse Resp Pulse Ox 04/03/19 13:21 133 H 21 H 04/03/19 11:19 100.2 F H 04/03/19 08:00 97 04/03/19 07:06 101.8 F H 04/03/19 07:02 135 H 24 H 04/03/19 04:00 101.8 F H Weight Admit Weight 167 lb Weight 173 lb 4 oz Most Recent Monitor Data Heart Rate from ECG 131 NIBP 126/86 NIBP BP-Mean 99 Respiration from ECG 22 SpO2 100 I&O: 04/02/19 04/03/19 04/04/19 06:59 06:59 06:59 Intake Total 1300 260 120 Output Total 450 Balance 850 260 120 Result Diagrams: 04/03/19 04:52 04/03/19 04:52 Hospitalist ROS - Medication Medications: Active Medications Generic Name Dose Route Start Last Admin Trade Name Freq PRN Reason Stop Dose Admin Acetaminophen 650 mg 04/03/19 06:00 04/03/19 06:32 Tylenol PO 650 mg Q6H PRN Administration Headache/Fever or Pain Hydrocodone Bitart/Acetaminophen 2 tab 03/30/19 18:00 04/02/19 09:02 [place] 10/325 PER TUBE 2 tab Q4H PRN Administration Pain Albuterol/Ipratropium 3 ml 03/28/19 19:00 04/03/19 13:21 Duoneb NEB 3 ml [id number] SARAH Administration Benzonatate 100 mg 04/02/19 15:00 04/03/19 14:29 Tessalon PO 100 mg TID SARAH Administration Fluticasone Propionate 0 gm 04/02/19 21:00 04/03/19 10:23 Flonase Nasal [place] NASAL 2 spr BID SARAH Administration Guaifenesin 1,200 mg 03/31/19 21:00 04/03/19 10:22 Mucinex PO 1,200 mg Q12HR SARAH Administration Levofloxacin 750 mg/ Device 150 mls @ 100 mls/hr 04/02/19 18:00 04/02/19 18: 47 IVPB Not Given 1800 SARAH Vancomycin HCl 1.5 gm/ Sodium 300 mls @ 200 mls/hr 04/02/19 18:00 04/03/19 06 :33 Chloride IVPB 300 mls 0600,1800 SARAH Administration Meropenem 1 gm/ Device 50 mls @ 100 mls/hr 04/02/19 22:00 04/03/19 14:29 IVPB 50 mls Q8HR SARAH Administration Lorazepam 0.5 mg 03/31/19 15:39 04/02/19 18:51 Ativan SLOW IVP 0.5 mg Q2H PRN Administration Anxiety Metoclopramide HCl 10 mg 04/02/19 21:00 04/03/19 14:28 Reglan PER TUBE 10 mg TID SARAH Administration Mometasone Furoate/Formoterol Fumar 2 puff 03/28/19 18:30 04/03/19 07:02 Dulera 200 Mcg/5 Mcg Inhaler INH 2 puff BID-RT SARAH Administration Morphine Sulfate 2 mg 03/31/19 15:40 04/03/19 15:01 Morphine SLOW IVP 2 mg Q2H PRN Administration Pain Levorphanol 2mg 1 each 03/30/19 22:00 04/03/19 14:51 Patient's Home PER TUBE 1 each Medication Q8HR SARAH Administration Sodium Chloride 10 ml 03/31/19 09:00 04/03/19 10:23 Flush - Normal Saline IVF 10 ml Q12HR SARAH Administration Venlafaxine HCl 150 mg 03/31/19 21:00 04/03/19 10:22 Effexor PER TUBE 150 mg BID SARAH Administration - Exam ENT: normocephalic atraumatic, moist mucosa Neck: supple, symmetric Heart: RRR Heart - other findings: tachycardic Respiratory - other findings: fair air entry with scattered crackles and transmitted sound Gastrointestinal: soft, non-distended, normal bowel sounds Gastrointestinal - other findings: PEG tube in place Extremities: no cyanosis, no edema Neurological: cranial nerve grossly intact, no focal deficits Psychiatric: normal affect, A&O x 3 Hosp A/P (1) Healthcare associated bacterial pneumonia Code(s): J15.9 - UNSPECIFIED BACTERIAL PNEUMONIA Status: Acute (2) Sepsis Code(s): A41.9 - SEPSIS, UNSPECIFIED ORGANISM Status: Acute (3) Acute respiratory failure with hypoxia Code(s): J96.01 - ACUTE RESPIRATORY FAILURE WITH HYPOXIA Status: Acute (4) Aspiration into respiratory tract Code(s): T17.908A - UNSP FB IN RESP TRACT, PART UNSP CAUSING OTH INJURY, INIT Status: Acute (5) Brain metastases Code(s): C79.31 - SECONDARY MALIGNANT NEOPLASM OF BRAIN Status: Acute (6) Cranial nerve disorder Code(s): G52.9 - CRANIAL NERVE DISORDER, UNSPECIFIED Status: Acute (7) Lung metastases Code(s): C78.00 - SECONDARY MALIGNANT NEOPLASM OF UNSPECIFIED LUNG Status: Acute (8) Metastatic breast carcinoma Code(s): C50.919 - MALIGNANT NEOPLASM OF UNSP SITE OF UNSPECIFIED FEMALE BREAST Status: Acute (9) Swallowing difficulty Code(s): R13.10 - DYSPHAGIA, UNSPECIFIED Status: Acute (10) Abnormal LFTs Code(s): R94.5 - ABNORMAL RESULTS OF LIVER FUNCTION STUDIES Status: Acute (11) Bilateral pulmonary infiltrates on CXR Code(s): R91.8 - OTHER NONSPECIFIC ABNORMAL FINDING OF LUNG FIELD Status: Acute (12) Bilateral pleural effusion Code(s): J90 - PLEURAL EFFUSION, NOT ELSEWHERE CLASSIFIED Status: Acute - Plan Broaden antibiotic with substitution of zosyn with meropenem and addition of vanc and levaquin Get repeat blood cultures Await sputum culture Continue oxygen supplementation Continue tube feed as recommended by GI Other treatments as per Pulm and Oncology Analgesic as needed
--- NOTE | 2019-04-03 16:18 | EKG ---
Test Reason : CODE GREEN Blood Pressure : / mmHG Vent. Rate : 138 BPM Atrial Rate : 138 BPM P-R Int : 200 ms QRS Dur : 084 ms QT Int : 228 ms P-R-T Axes : 059 043 228 degrees QTc Int : 345 ms Sinus tachycardia Possible Left atrial enlargement Nonspecific ST and T wave abnormality Abnormal ECG Confirmed by DR. Marty REYNA ([id number]) on 04/03/2019 4:18:28 PM Referred By: OBI Confirmed By:DR. Marty REYNA
[2019-04-04] MEDS: Lorazepam 2 MG/ML VIAL SLOW IVP PRN ×3 (00:16→15:28)
[2019-04-04] MEDS: HYDROcodone/Acetaminophen 10/325 mg Tablet PER TUBE PRN (00:17)
[2019-04-04 05:57] LABS: Vancomycin, Trough 1.6 ug/mL
[2019-04-04] MEDS: MEROPENEM 1 GM/50 ML 1 GM in Premix Bag 1 BAG IVPB SCH ×4 (06:36→22:29)
[2019-04-04] MEDS: Vancomycin HCl 1.5 GM in Sodium Chloride 0.9% 250 ML 300 ML IVPB SCH (06:37)
[2019-04-04] MEDS: LEVORPHANOL 2 MG PER TUBE SCH ×3 (06:37→23:15)
[2019-04-04] MEDS: Mometasone/Formoterol 120 PUFF INHALER INH SCH ×2 (07:02→18:57)
--- NOTE | 2019-04-04 07:32 | PDOC.MOPN ---
Interval History: fever, shortness of breath. - Vital Signs Vital Signs: Vital Signs (12 hours) Temp Pulse Resp Pulse Ox 04/04/19 07:02 128 H 20 04/04/19 04:00 98.8 F 04/04/19 00:33 130 H 30 H 98 04/03/19 20:00 95 Weight Admit Weight 167 lb Weight 173 lb 4 oz Most Recent Monitor Data Heart Rate from ECG 130 NIBP 132/91 NIBP BP-Mean 104 Respiration from ECG 50 SpO2 97 - Physical Exam General: Moderate distress Cardiovascular: Other (tachy) Neurological: Normal speech - Labs Result Diagrams: 04/03/19 04:52 04/03/19 04:52 Lab results: Laboratory Results - last 24 hr 04/04/19 05:04: Vancomycin Trough 1.6 A/P - Problem (1) Aspiration into respiratory tract Current Visit: Yes Code(s): T17.908A - UNSP FB IN RESP TRACT, PART UNSP CAUSING OTH INJURY, INIT Status: Acute (2) Brain metastases Current Visit: Yes Code(s): C79.31 - SECONDARY MALIGNANT NEOPLASM OF BRAIN Status: Acute (3) Cranial nerve disorder Current Visit: Yes Code(s): G52.9 - CRANIAL NERVE DISORDER, UNSPECIFIED Status: Acute (4) Metastatic breast carcinoma Current Visit: Yes Code(s): C50.919 - MALIGNANT NEOPLASM OF UNSP SITE OF UNSPECIFIED FEMALE BREAST Status: Acute - Plan Plan: Patient and spouse concerned about c. diff from antibiotics. Long discussion with by telephone regarding severity of illness and poor prognosis. Needs continued support.
[2019-04-04] MEDS: guaiFENesin ER 600 MG TAB PO SCH ×2 (08:32→22:28)
[2019-04-04] MEDS: Acetaminophen 325 MG TAB PO PRN (08:34)
[2019-04-04] MEDS: Metoclopramide HCl 10 MG TAB PER TUBE SCH ×3 (08:34→22:28)
[2019-04-04] MEDS: Benzonatate 100 MG CAP PO SCH ×3 (08:36→22:28)
[2019-04-04] MEDS: Fluticasone Propionate Nasal Spray 16 gm Bottle NASAL SCH ×2 (08:36→22:23)
[2019-04-04 09:08] LABS: Hemoglobin 10.8 g/dL (12.0-16.0); Mean Corpuscular HGB CONC 31.4 g/dL (32.0-36.0); Mean Corpuscular Hemoglobin 28.4 pg (27.0-31.0); Mean Corpuscular Volume 90.5 fL (78.0-98.0); Mean Platelet Volume 8.5 fL (7.4-10.4); Platelet Count 61 thou/uL (130-400); RBC Distribution Width 15.6 % (11.5-14.5); Red Blood Cell (RBC) Count 3.79 mill/uL (4.20-5.40); White Blood Cell (WBC) Count 5.3 thou/uL (4.8-10.8)
--- NOTE | 2019-04-04 09:14 | PRG ---
DATE OF SERVICE: 04/04/2019 SUBJECTIVE: This morning, she is anxious and tearful. OBJECTIVE: VITAL SIGNS: Pulse 128, saturations are 97, blood pressure 150/91, and temperature 100.6. CHEST: Decreased breath sounds without any wheezing. CARDIAC: Normal S1 and S2. No gallops. ABDOMEN: No masses. LABORATORY DATA: Surprisingly sputum is growing methicillin-resistant Staph aureus. ASSESSMENT: Pancytopenia, tracheobronchitis, and metastatic breast cancer. PLAN: Switch over to Zyvox. Continue meropenem. Baseline chest x-ray and lab. We will continue to follow. Consider thoracentesis early if she remains symptomatic. Job ID: [id number]
--- NOTE | 2019-04-04 09:17 | PDOC.PALCO ---
Palliative Care Consult - Consult Details Requesting Physician: Dr Hong Reason for Consult: goals of care, advance directives assistance, family support Family Members Present: Ronald - Pertinent HPI Continues to remain in IMCU as well as her mother. Patient tearful, short of breath. - Pertinent PMH Metastatic breast cancer with pronounced complications including dysphagia resulting in PEG placement and subsequent aspiration pneumonia. - Social History Smoking Status: Never smoker Smoking: no tobacco exposure Alcohol Use: none Drug Use History: none Living Situation: - Medications MAR Reviewed: Yes - Allergies Allergies/Adverse Reactions: Allergies Allergy/AdvReac Type Severity Reaction Status Date / Time No Known Allergies Allergy Verified 11/26/18 11:43 - Objective Vital Signs: Vital Signs - Most Recent Temp Pulse Resp BP Pulse Ox 98.8 F 128 H 20 128/80 98 04/04/19 04:00 04/04/19 07:02 04/04/19 07:02 03/31/19 21:00 04/04/19 00:33 Palliative Performance Scale: 30 - Physical Exam Constitutional: mild distress HEENT: moist MMs, EOMI Respiratory: tachypnea (Labored respirations, adventicious lung sounds, weak wet cough) Cardiovascular: RRR Gastrointestinal: positive bowel sounds (PEG) Musculoskeletal: pulses present Neurological: moves all 4 limbs Deviation from normal: Depressed, tearful Deviation from normal: Pallor - Problem List (1) Palliative care encounter Code(s): Z51.5 - ENCOUNTER FOR PALLIATIVE CARE Current Visit: Yes Status: Acute (2) Acute respiratory failure with hypoxia Code(s): J96.01 - ACUTE RESPIRATORY FAILURE WITH HYPOXIA Current Visit: Yes Status: Acute (3) Cranial nerve disorder Code(s): G52.9 - CRANIAL NERVE DISORDER, UNSPECIFIED Current Visit: Yes Status: Acute (4) Lung metastases Code(s): C78.00 - SECONDARY MALIGNANT NEOPLASM OF UNSPECIFIED LUNG Current Visit: Yes Status: Acute (5) Metastatic breast carcinoma Code(s): C50.919 - MALIGNANT NEOPLASM OF UNSP SITE OF UNSPECIFIED FEMALE BREAST Current Visit: Yes Status: Acute (6) Swallowing difficulty Code(s): R13.10 - DYSPHAGIA, UNSPECIFIED Current Visit: Yes Status: Acute - Plan/Recommendations Plan: Visited with patient and at length. *Discussed resuscitation status. Education in relation to potential outcomes should resuscitation measures need to be carried out, asking patient what she thought we could do and if it would alter the outcome. She agreed to "think about it" and we will revisit this afternoon. * concerned over immigration and if the embassy had all they needed to rohit visas to Polinas sister and niece to come not only care for her but their mother. Suggested he reach out to them and if additional paperwork was needed on our end we can then facilitate what is required. *Discussed creating quality days verses quantity. *Education that we can not treat the cancer and that anything that is done is in the measure of palliating the disease and symptoms. *Will ask Dr Mars if consideration could be given to 0.5ml po roxanol (20 mg/ml ) to mitigate shortness of breath Palliative Care will follow up with Dr Hong this afternoon to revisit resuscitation status and further define goals of care. [60] minutes spent on this encounter with >50% of the time in counseling and coordination of care. Thank you for this very appropriate consult.
[2019-04-04 09:29] LABS: ALT (SGPT) 82 U/L (8-55); AST (SGOT) 94 U/L (5-34); Albumin 3.1 g/dL (3.5-5.0); Alkaline Phosphatase 913 U/L (40-110); Anion Gap 17 mmol/L (10-20); BUN (Urea Nitrogen) 12 mg/dL (7.0-18.7); Bilirubin, Total 1.3 mg/dL (0.2-1.2); Calc. Creatinine Clearance 191 mL/min (70-130); Calcium 8.5 mg/dL (7.8-10.44); Carbon Dioxide 22 mmol/L (22-29); Chloride 99 mmol/L (98-107); Estimated GFR-MDRD Greater than 90; Globulin 2.8 g/dL (2.4-3.5); Glucose 128 mg/dL (70-105); Magnesium 1.7 mg/dL (1.6-2.6); Potassium 3.7 mmol/L (3.5-5.1); Protein, Total 5.9 g/dL (6.0-8.3); Sodium 134 mmol/L (136-145)
[2019-04-04 10:00] LABS: Band 23 % (5-11); Lymphocytes 13 % (21-51); MDiff Complete? YES; Metamyelocyte 1 % (0-0); Monocytes 2 % (0-10); Myelocyte 1 % (0-0); Neutrophil 59 % (42-75); Polychromasia SLIGHT = 2-3 cells (100X) (0-2/hpf); Reactive Lymphocytes 1 % (0-10)
--- NOTE | 2019-04-04 10:34 | PRG ---
DATE OF SERVICE: 04/04/2019 REASON FOR CONSULTATION: Dysphagia, status post PEG tube placement, moderate protein-calorie malnutrition. SUBJECTIVE: The patient attempted to increase her nutritional intake yesterday with bolus feeds and has been able to tolerate the bolus format more so than the continuous format. However, she has only been able to consume around 60 to 120 mL per PEG tube secondary to increased abdominal bloating and feelings of satiety. However, she continues to have chapped lips and dry mouth consistent with a mild hypovolemia type picture. Today, she is very tearful about her current clinical situation and especially surrounding the situation with her mother. She also states that she has been having increasing difficulty breathing with increased sputum production. Lastly, she is very concerned about the overall clinical picture. Currently, she denies any nausea, vomiting, chills, or GI bleeding. OBJECTIVE: VITAL SIGNS: Temperature 98.8 with a T-max of 101.8, heart rate 128, blood pressure 132/91, respiratory rate 20, and saturating 97% on 4 L nasal cannula. GENERAL: The patient was lying in bed, in no acute distress. Tearful during interview. Alert and oriented x4. Moderate conversational dyspnea. CARDIOVASCULAR: Tachycardic rate, but regular rhythm. RESPIRATORY: Tachypnea with resistance to air flow in all lung cazares and possible crackles in the bilateral lower lung cazares. ABDOMEN: Normoactive bowel sounds. Soft. Minimal abdominal distention. Tenderness to palpation in the left upper quadrant around the PEG tube site itself. The PEG tube stoma actually exhibits minimal skin erythema without any purulence or breakdown. EXTREMITIES: No cyanosis, clubbing, or edema. LABORATORY DATA: No current studies are available for review. IMAGING DATA: No current GI imaging is available for review. ASSESSMENT AND PLAN: The patient is a 33-year-old female with past medical history of anxiety; depression; Helicobacter pylori gastritis, status post treatment; paralyzed vocal cord; delayed gastric emptying; and metastatic breast cancer with metastatic disease to the lungs, liver, bone and brain, presenting with aspiration pneumonia with oropharyngeal dysphagia, now status post percutaneous gastrostomy tube placement. Oropharyngeal dysphagia/moderate protein-calorie malnutrition. The patient initially presented with aspiration pneumonia with modified barium swallow confirming the presence of aspiration. She had a PEG tube placed on March 30, 2019, with no immediate perioperative complications. She did have a transient episode of significantly increased abdominal pain, but this has since resolved. She now does have some minimal skin erythema around the PEG tube site concerning for skin irritation from the PEG tube itself versus possible early cellulitis (I favor the former given the antibiotics that she is currently on), she had been placed on continuous tube feeds, but was unable to tolerate that due to significant abdominal discomfort. She has been able to tolerate the bolus feeds better, but is currently consuming an inadequate amount of calories in order to maintain adequate nutrition. I discussed this with her extensively in that she needs to push nutritional intake with Jevity and she is understanding of the situation. Recommendations: 1. Pain control per primary team. 2. Antibiotics per primary team, but we would consider coverage of soft tissue infection for the increased redness around her PEG tube site. 3. I strongly encouraged increased bolus feeds and the patient may need smaller more frequent feed throughout the day given her concurrent diagnosis of delayed gastric emptying. Elevated liver function tests. On admission, the patient was noted to have an elevated AST, ALT, and significantly elevated alkaline phosphatase that have continued to downtrend during the course of this hospitalization. The etiology for her significantly elevated alkaline phosphatase is most likely due to the presence of metastatic disease to both the liver and bone. Recommendations: 1. We would continue to trend her LFTs 1 to 2 times a week for continued monitoring of this abnormality. 2. Treatment of metastatic disease per primary Oncology team. We will continue to follow. Please call with any questions. Job ID: [id number]
--- NOTE | 2019-04-04 11:07 | RAD ---
CHEST 1 VIEW: INDICATION: History of CHF. COMPARISON: Prior exam dated 04/01/2019. FINDINGS: There is cardiomegaly, pulmonary vascular congestion, and bilateral infrahilar airspace opacities whi ch are stable. Bilateral pleural effusions persist. Left chest wall port is stable. No pneumothora x is evident. IMPRESSION: Stable examination to the comparison. Findings remain concerning for congestive heart failure. POS: [facility]
--- NOTE | 2019-04-04 11:44 | PQF ---
LACHELLE GAY OBINELDA [id number] [facility]- B10 [id number] CLINICAL DOCUMENTATION IMPROVEMENT CLARIFICATION FORM: ICD-10 Updated PLEASE DO AN ADDENDUM TO THE PROGRESS NOTE WITH ANY DOCUMENTATION UPDATES OR ADDITIONS AND CARRY THROUGH TO DC SUMMARY. THANK YOU. DATE: 04/04/2019 ATTN: DR. Alli UNDERWOOD Please exercise your independent, professional judgment in responding to the clarification form. Clinical indicators are provided on the bottom of this form for your review. Please check appropriate box(s): [ ] Aspiration Pneumonia [ ] Empirically treating Gram Negative Pneumonia [ ] Empirically treating Anaerobic Pneumonia [ ] Pneumonia secondary to (specify organism / underlying disease) [ ] Simple Pneumonia [ ] Pneumonia of unknown etiology [ x ] Other diagnosis Healthcare associated/MRSA pneumonia [ ] Unable to determine In addition, please specify: Present on Admission (POA): [ ] Yes [ ] No [ x ] Unable to determine For continuity of documentation, please document condition throughout progress notes and discharge summary. Thank You. CLINICAL INDICATORS - SIGNS / SYMPTOMS / LABS / RESULTS AND LOCATION IN MR 03/28 H&P (GA) IMPRESSION AND PLAN: 2). POSSIBLE PNEUMONIA. SHE HAS INFILTRATES CONCERNING FOR POSSIBLE MULTILOBAR PNEUMONIA; HOWEVER, WHITE COUNT IS NORMAL. SHE IS GENERALLY AFEBRILE. WILL COVER WITH BROAD-SPECTRUM ANTIBIOTICS GIVEN HER UNDERLYING CANCER. 03/29 PN (ABNER) PLAN: ACUTE RESPIRATORY FAILURE WITH POSSIBLE PNEUMONIA 03/29 PN (SULLAUREN) A/P : ASPIRATION PNEUMONIA 2/2 TO OROPHARYNGEAL DYSPHAGIA. THE PT HAD MODIFIED BARIUM SWALLOW ON 03/24/19 AT [facility] WITH FINDINGS CONSISTENT WITH ASPIRATION WITH ALL FOOD CONSISTENCIES. 03/30 CHEST X-RAY: IMPRESSION: COMPONENT OF PNEUMONIA IS SUSPECTED. 03/30 PN (OBI ) VOCAL CORD DYSFUNCTION AND DYSPHAGIA ADMITTED WITH SOB. NOW NPO. PEG TUBE PLANNED. NO FEVER. A/P: 7). SWALLOWING DIFFICULTY, DYSPHAGIA 03/30 PN (CORTES) " I WOULD DISCONTINUE ANTIBIOTICS ALL SINCE THERE IS NO EVIDENCE OF PNEUMONIA. SHE IS ASPIRATING, BUT IT IS PROBABLY NOT INFECTIOUS AT THIS STAGE." 03/31 PN (FLEENER) A/P 6). ASPIRATION INTO RESPIRATORY TRACT 03/31 PN (SULTZ) ASSESSMENT: PRESENTING WITH INCREASED SHORTNESS OF BREATH CONCERNING FOR ASPIRATION PNEUMONIA AND OROPHARYNGEAL DYSPHAGIA, NOW STATUS POST PEG TUBE PLACEMENT. 04/02PN (ESA) A/P : PRESENTING WITH PROBABLE ASPIRATION PNEUMONIA WITH OROPHARYNGEAL DYSPHAGIA, NOW STATUS POST PEG TUBE PLACEMENT. RISK: VOCAL CORD DYSFUNCTION, DYSPHAGIA, SWALLOWING DIFFICULTY (OBI/ PN ) 03/30 TREATMENTS: PULMONOLOGY CONSULT () ZOSYN IV ( 04/02-PRESENT) VANCOMYCIN IV (03/29-04/03) SUPPLEMENTAL OXYGEN (03/28-PRESENT) THANK YOU! DALY (This form is maintained as a part of the permanent medical record) 2014 [employer] All Rights Reserved SAKINA [email or web address] [phone] MTDD
[2019-04-04 12:41] VITALS: BMI 27.1
[2019-04-04] MEDS: Linezolid 600 MG in Premix Bag 1 BAG IVPB SCH ×2 (12:57→22:26)
--- NOTE | 2019-04-04 13:38 | PDOC.PALFU ---
Palliative Care Follow-up Note Family meeting with patient, Ronald, and Dr Hong. Dr Hong highlighted outcomes and quality of days. Patient has elected for primarily comfort and quality. Patient agreed to transition to DNAR. Will give Roxinal q 1hr PRN to ease respiratory symptoms and Ritalin PRN for fatigue, Dr Hong agrees. Ronald, patient to visit with their daughter Rohini mon to discuss Chelo coming home. Will revisit tomorrow after attempts are made to improve patient ease of breathing and management of symptoms with possibility of transitioning home with hospice or inpatient. Will continue medications/abx therapy until tomorrow and revisit. Will also transfer patient back to oncology now that she is a DNAR. *DNAR *Roxinal for shortness of breath q 1 hr (oral seconary to potentially home with this medication and can identify the dose patient requires to manage symptoms) *continue with Ativan IVP for anxiety *Transfer to Oncology *Patient desiring to go outside *Revisit 04/05 home with hospice or GIP
[2019-04-04] MEDS ORDERED: Scopolamine 1.5 mg/72 hour Patch TD SCH (15:00)
[2019-04-04] MEDS: Morphine 10 MG/0.5 ML ORAL SYRINGE SL PRN ×4 (15:14→23:15)
--- NOTE | 2019-04-04 17:27 | PDOC.MOPN ---
Interval History: in chair, mild resp distress and hurting in her chest - Vital Signs Vital Signs: Vital Signs (12 hours) Temp Pulse Resp Pulse Ox 04/04/19 15:25 96.4 F L 04/04/19 11:34 98.2 F 04/04/19 08:00 96 04/04/19 07:02 128 H 20 Weight Admit Weight 167 lb Weight 173 lb 4 oz Most Recent Monitor Data Heart Rate from ECG 138 NIBP 126/93 NIBP BP-Mean 104 Respiration from ECG 26 SpO2 95 - Physical Exam General: Alert, Mild distress HEENT: Atraumatic Lungs: Other (anette rhonchi) Cardiovascular: Regular rate (tachy) Abdomen: Normal bowel sounds Extremities: No edema Skin: No rashes - Labs Result Diagrams: 04/04/19 08:53 04/04/19 08:53 Lab results: Laboratory Results - last 24 hr 04/04/19 08:53: Phosphorus 2.0 L 04/04/19 08:53: WBC 5.3, RBC 3.79 L, Hgb 10.8 L, Hct 34.3 L, MCV 90.5, MCH 28.4 , MCHC 31.4 L, RDW 15.6 H, Plt Count 61 L, MPV 8.5, Neutrophils % (Manual) 59, Band Neuts % (Manual) 23 H, Lymphocytes % (Manual) 13 L, Reactive Lymphs % 1, Monocytes % (Manual) 2, Metamyelocytes % (Man) 1 H, Myelocytes % 1 H, Neutrophils # Not Reportable, Lymphocytes # Not Reportable, Polychromasia SLIGHT = 2-3 cells 04/04/19 08:53: Sodium 134 L, Potassium 3.7, Chloride 99, Carbon Dioxide 22, Anion Gap 17, BUN 12, Creatinine 0.52 L, Estimated GFR (MDRD) Greater than 90, Glucose 128 H, Calcium 8.5, Magnesium 1.7, Total Bilirubin 1.3 H, AST 94 H, ALT 82 H, Alkaline Phosphatase 913 H, Serum Total Protein 5.9 L, Albumin 3.1 L, Globulin 2.8, Albumin/Globulin Ratio 1.1 L 04/04/19 05:04: Vancomycin Trough 1.6 A/P - Problem (1) Metastatic breast carcinoma Current Visit: Yes Code(s): C50.919 - MALIGNANT NEOPLASM OF UNSP SITE OF UNSPECIFIED FEMALE BREAST Status: Acute (2) Brain metastases Current Visit: Yes Code(s): C79.31 - SECONDARY MALIGNANT NEOPLASM OF BRAIN Status: Acute (3) Cranial nerve disorder Current Visit: Yes Code(s): G52.9 - CRANIAL NERVE DISORDER, UNSPECIFIED Status: Acute (4) Swallowing difficulty Current Visit: Yes Code(s): R13.10 - DYSPHAGIA, UNSPECIFIED Status: Acute (5) Lung metastases Current Visit: Yes Code(s): C78.00 - SECONDARY MALIGNANT NEOPLASM OF UNSPECIFIED LUNG Status: Acute (6) Aspiration into respiratory tract Current Visit: Yes Code(s): T17.908A - UNSP FB IN RESP TRACT, PART UNSP CAUSING OTH INJURY, INIT Status: Acute - Plan Plan: 1. we discused and length code status, she is a DNAR after much discussion and her agrees 2. at this point she would like to be comfortable and with her mother and daughter 3. increase morphine and ativan 4. transfer to onc
--- NOTE | 2019-04-04 17:37 | PDOC.HOSPP ---
- Subjective Encounter Date: 04/04/19 Encounter Time: 10:35 Subjective: 33 y/o female with metastatic breast cancer with mets to brain, liver and spine etc, and associated with vocal cord dysfunction and dysphagia admitted with worsening SOB. S/p PEG tube placement and now on tube feeding. Patient developed worsening SOB and tachycardia on 03/31/2019 and was transfered to [facility] after Code green. Developed fever associated with worsening cough, hemotypsis and tachycardia. Still having intermittent fevers. - Objective Vital Signs & Weight: Vital Signs (12 hours) Temp Pulse Resp Pulse Ox 04/04/19 15:25 96.4 F L 04/04/19 11:34 98.2 F 04/04/19 08:00 96 04/04/19 07:02 128 H 20 Weight Admit Weight 167 lb Weight 173 lb 4 oz Most Recent Monitor Data Heart Rate from ECG 138 NIBP 126/93 NIBP BP-Mean 104 Respiration from ECG 26 SpO2 95 I&O: 04/03/19 04/04/19 04/05/19 06:59 06:59 06:59 Intake Total 260 525 60 Output Total 500 Balance 260 25 60 Result Diagrams: 04/04/19 08:53 04/04/19 08:53 Hospitalist ROS - Medication Medications: Active Medications Generic Name Dose Route Start Last Admin Trade Name Freq PRN Reason Stop Dose Admin Acetaminophen 650 mg 04/03/19 06:00 04/04/19 08:34 Tylenol PO 650 mg Q6H PRN Administration Headache/Fever or Pain Hydrocodone Bitart/Acetaminophen 2 tab 03/30/19 18:00 04/04/19 00:17 [place] 10/325 PER TUBE 2 tab Q4H PRN Administration Pain Albuterol/Ipratropium 3 ml 03/28/19 19:00 04/04/19 14:55 Duoneb NEB Not Given [id number]-NV SARAH Benzonatate 100 mg 04/02/19 15:00 04/04/19 13:53 Tessalon PO 100 mg TID SARAH Administration Fluticasone Propionate 0 gm 04/02/19 21:00 04/04/19 08:36 Flonase Nasal [place] NASAL 1 spr BID SARAH Administration Guaifenesin 1,200 mg 03/31/19 21:00 04/04/19 08:32 Mucinex PO 1,200 mg Q12HR SARAH Administration Meropenem 1 gm/ Device 50 mls @ 100 mls/hr 04/04/19 06:00 04/04/19 13:08 IVPB 50 mls Q8HR SARAH Administration Linezolid 600 mg/ Device 300 mls @ 150 mls/hr 04/04/19 09:00 04/04/19 12:57 IVPB 300 mls Q12HR SARAH Administration Lorazepam 0.5 mg 03/31/19 15:39 04/04/19 15:28 Ativan SLOW IVP 0.5 mg Q2H PRN Administration Anxiety Metoclopramide HCl 10 mg 04/02/19 21:00 04/04/19 13:53 Reglan PER TUBE 10 mg TID SARAH Administration Mometasone Furoate/Formoterol Fumar 2 puff 03/28/19 18:30 04/04/19 07:02 Dulera 200 Mcg/5 Mcg Inhaler INH 2 puff BID-RT SARAH Administration Morphine Sulfate 2 mg 03/31/19 15:40 04/03/19 15:01 Morphine SLOW IVP 2 mg Q2H PRN Administration Pain Morphine Sulfate 10 mg 04/04/19 13:12 04/04/19 15:14 Roxanol Solution SL 10 mg Q1H PRN Administration SOB or Anxiety Levorphanol 2mg 1 each 03/30/19 22:00 04/04/19 13:51 Patient's Home PER TUBE 1 each Medication Q8HR SARAH Administration Scopolamine 1.5 mg 04/04/19 15:00 04/04/19 15:14 Transderm Scop TD 1.5 mg Q3D SARAH Administration Sodium Chloride 10 ml 03/31/19 09:00 04/04/19 08:36 Flush - Normal Saline IVF 10 ml Q12HR SARAH Administration Venlafaxine HCl 150 mg 03/31/19 21:00 04/04/19 08:34 Effexor PER TUBE 150 mg BID SARAH Administration - Exam General Appearance: awake alert ENT: normocephalic atraumatic, dry oral mucosa Neck: supple, no JVD Heart: RRR Heart - other findings: tachycardic Respiratory: no wheezes, no ronchi Respiratory - other findings: fair air entry with coarse transmitted sound/ crackles Gastrointestinal: soft, non-distended, normal bowel sounds Gastrointestinal - other findings: PEG noted Extremities: no edema Neurological: cranial nerve grossly intact, no new deficit Psychiatric: A&O x 3 Hosp A/P (1) Healthcare associated bacterial pneumonia Code(s): J15.9 - UNSPECIFIED BACTERIAL PNEUMONIA Status: Acute (2) Sepsis Code(s): A41.9 - SEPSIS, UNSPECIFIED ORGANISM Status: Acute (3) Acute respiratory failure with hypoxia Code(s): J96.01 - ACUTE RESPIRATORY FAILURE WITH HYPOXIA Status: Acute (4) Aspiration into respiratory tract Code(s): T17.908A - UNSP FB IN RESP TRACT, PART UNSP CAUSING OTH INJURY, INIT Status: Acute (5) Brain metastases Code(s): C79.31 - SECONDARY MALIGNANT NEOPLASM OF BRAIN Status: Acute (6) Cranial nerve disorder Code(s): G52.9 - CRANIAL NERVE DISORDER, UNSPECIFIED Status: Acute (7) Lung metastases Code(s): C78.00 - SECONDARY MALIGNANT NEOPLASM OF UNSPECIFIED LUNG Status: Acute (8) Metastatic breast carcinoma Code(s): C50.919 - MALIGNANT NEOPLASM OF UNSP SITE OF UNSPECIFIED FEMALE BREAST Status: Acute (9) Swallowing difficulty Code(s): R13.10 - DYSPHAGIA, UNSPECIFIED Status: Acute (10) Abnormal LFTs Code(s): R94.5 - ABNORMAL RESULTS OF LIVER FUNCTION STUDIES Status: Acute (11) Bilateral pulmonary infiltrates on CXR Code(s): R91.8 - OTHER NONSPECIFIC ABNORMAL FINDING OF LUNG FIELD Status: Acute (12) Bilateral pleural effusion Code(s): J90 - PLEURAL EFFUSION, NOT ELSEWHERE CLASSIFIED Status: Acute (13) MRSA (methicillin resistant staphylococcus aureus) pneumonia Code(s): J15.212 - PNEUMONIA DUE TO METHICILLIN RESISTANT STAPHYLOCOCCUS AUREUS Status: Acute - Plan Now DNAR and on comfort care Continue oxygen supplementation Analgesic and anxiolytic as needed for transfer back to oncology unit.
[2019-04-04] MEDS ORDERED: Morphine 10 MG/0.5 ML ORAL SYRINGE ONE (23:13)
[2019-04-05] MEDS: Morphine 10 MG/0.5 ML ORAL SYRINGE SL PRN (04:19)
[2019-04-05] MEDS: LEVORPHANOL 2 MG PER TUBE SCH (06:10)
[2019-04-05] MEDS: MEROPENEM 1 GM/50 ML 1 GM in Premix Bag 1 BAG IVPB SCH (06:10)
[2019-04-05] MEDS: Lorazepam 2 MG/ML VIAL SLOW IVP PRN ×6 (06:12→16:28)
[2019-04-05 06:58] LABS: Anion Gap 14 mmol/L (10-20); BUN (Urea Nitrogen) 12 mg/dL (7.0-18.7); Calc. Creatinine Clearance 191 mL/min (70-130); Calcium 8.1 mg/dL (7.8-10.44); Carbon Dioxide 28 mmol/L (22-29); Chloride 97 mmol/L (98-107); Estimated GFR-MDRD Greater than 90; Glucose 115 mg/dL (70-105); Potassium 3.8 mmol/L (3.5-5.1); Sodium 135 mmol/L (136-145)
[2019-04-05 07:07] LABS: Band 18 % (5-11); Lymphocytes 10 % (21-51); MDiff Complete? YES; Mean Corpuscular HGB CONC 33.1 g/dL (32.0-36.0); Mean Corpuscular Hemoglobin 29.5 pg (27.0-31.0); Mean Corpuscular Volume 89.1 fL (78.0-98.0); Mean Platelet Volume 8.8 fL (7.4-10.4); Metamyelocyte 4 % (0-0); Monocytes 7 % (0-10); Myelocyte 1 % (0-0); Neutrophil 59 % (42-75); Nucleated RBC 7 % (0); Platelet Count 58 thou/uL (130-400); Platelet Morphology Comment Appears Decreased; Polychromasia SLIGHT = 2-3 cells (100X) (0-2/hpf); RBC Distribution Width 15.5 % (11.5-14.5); Reactive Lymphocytes 1 % (0-10); Red Blood Cell (RBC) Count 3.39 mill/uL (4.20-5.40); White Blood Cell (WBC) Count 6.9 thou/uL (4.8-10.8)
[2019-04-05 08:10] VITALS: BP 121/83; TEMP 99
[2019-04-05] MEDS: Mometasone/Formoterol 120 PUFF INHALER INH SCH (08:24)
--- NOTE | 2019-04-05 08:25 | PDOC.MOPN ---
Interval History: harder time breathing and more anxiety - Vital Signs Vital Signs: Vital Signs (12 hours) Temp Pulse Resp BP Pulse Ox 04/05/19 08:07 99.0 F 138 H 24 H 121/83 96 04/05/19 04:50 98.2 F 137 H 24 H 119/81 95 04/05/19 00:22 98.2 F 135 H 25 H 134/80 75 L 04/05/19 00:19 133 H 30 H 90 L 04/04/19 21:15 97.8 F 5 L 24 H 128/82 86 L Weight Admit Weight 167 lb Weight 173 lb 4 oz Most Recent Monitor Data Heart Rate from ECG 138 NIBP 121/82 NIBP BP-Mean 95 Respiration from ECG 26 SpO2 95 - Physical Exam General: Alert, Moderate distress HEENT: Atraumatic Lungs: Other (anette rhonchi) Cardiovascular: Regular rate (tachy) Abdomen: Normal bowel sounds Extremities: No clubbing Psych/Mental Status: Mental status NL, Mood NL - Labs Result Diagrams: 04/05/19 06:15 04/05/19 06:15 Lab results: Laboratory Results - last 24 hr 04/05/19 06:15: WBC 6.9, RBC 3.39 L, Hgb 10.0 L, Hct 30.2 L, MCV 89.1, MCH 29.5 , MCHC 33.1, RDW 15.5 H, Plt Count 58 L, MPV 8.8, Neutrophils % (Manual) 59, Band Neuts % (Manual) 18 H, Lymphocytes % (Manual) 10 L, Reactive Lymphs % 1, Monocytes % (Manual) 7, Metamyelocytes % (Man) 4 H, Myelocytes % 1 H, Neutrophils # Not Reportable, Lymphocytes # Not Reportable, Nucleated RBCs # ( Man) 7 H, Plt Morphology Comment Appears Decreased L, Polychromasia SLIGHT = 2- 3 cells 04/05/19 06:15: Sodium 135 L, Potassium 3.8, Chloride 97 L, Carbon Dioxide 28, Anion Gap 14, BUN 12, Creatinine 0.52 L, Estimated GFR (MDRD) Greater than 90, Glucose 115 H, Calcium 8.1 04/04/19 08:53: Phosphorus 2.0 L 04/04/19 08:53: WBC 5.3, RBC 3.79 L, Hgb 10.8 L, Hct 34.3 L, MCV 90.5, MCH 28.4 , MCHC 31.4 L, RDW 15.6 H, Plt Count 61 L, MPV 8.5, Neutrophils % (Manual) 59, Band Neuts % (Manual) 23 H, Lymphocytes % (Manual) 13 L, Reactive Lymphs % 1, Monocytes % (Manual) 2, Metamyelocytes % (Man) 1 H, Myelocytes % 1 H, Neutrophils # Not Reportable, Lymphocytes # Not Reportable, Polychromasia SLIGHT = 2-3 cells 04/04/19 08:53: Sodium 134 L, Potassium 3.7, Chloride 99, Carbon Dioxide 22, Anion Gap 17, BUN 12, Creatinine 0.52 L, Estimated GFR (MDRD) Greater than 90, Glucose 128 H, Calcium 8.5, Magnesium 1.7, Total Bilirubin 1.3 H, AST 94 H, ALT 82 H, Alkaline Phosphatase 913 H, Serum Total Protein 5.9 L, Albumin 3.1 L, Globulin 2.8, Albumin/Globulin Ratio 1.1 L A/P - Problem (1) Metastatic breast carcinoma Current Visit: Yes Code(s): C50.919 - MALIGNANT NEOPLASM OF UNSP SITE OF UNSPECIFIED FEMALE BREAST Status: Acute (2) Brain metastases Current Visit: Yes Code(s): C79.31 - SECONDARY MALIGNANT NEOPLASM OF BRAIN Status: Acute (3) Cranial nerve disorder Current Visit: Yes Code(s): G52.9 - CRANIAL NERVE DISORDER, UNSPECIFIED Status: Acute (4) Swallowing difficulty Current Visit: Yes Code(s): R13.10 - DYSPHAGIA, UNSPECIFIED Status: Acute (5) Lung metastases Current Visit: Yes Code(s): C78.00 - SECONDARY MALIGNANT NEOPLASM OF UNSPECIFIED LUNG Status: Acute (6) Aspiration into respiratory tract Current Visit: Yes Code(s): T17.908A - UNSP FB IN RESP TRACT, PART UNSP CAUSING OTH INJURY, INIT Status: Acute - Plan Plan: 1. consult HBV, consider inpatient 2. continue breathing treatments 3. decrease abx 4. DNAR
--- NOTE | 2019-04-05 09:35 | PRG ---
DATE OF SERVICE: 04/05/2019 SUBJECTIVE: She is on non-rebreather and she will be made a DNR. OBJECTIVE: VITAL SIGNS: Temperature 99, pulse 138, respiratory rate 24, saturations are 92% on a non-rebreather, and blood pressure 120/83. CHEST: Decreased breath sounds. CARDIAC: Sinus tach. ABDOMEN: Soft. LABORATORY DATA: White count 6000, platelet count 58, 59 segs, and 18 bands. Sputum is growing MRSA. ASSESSMENT: Respiratory failure, metastatic breast cancer, bilateral pleural effusion, and methicillin-resistant Staphylococcus aureus tracheobronchitis. PLAN: Agree with comfort care. Job ID: [id number]
[2019-04-05] MEDS: Linezolid 600 MG in Premix Bag 1 BAG IVPB SCH (09:41)
[2019-04-05] MEDS: Morphine 2 MG/ML SYRINGE SLOW IVP PRN ×4 (09:41→16:23)
[2019-04-05] MEDS: Benzonatate 100 MG CAP PO SCH (09:44)
[2019-04-05] MEDS: Fluticasone Propionate Nasal Spray 16 gm Bottle NASAL SCH (09:44)
[2019-04-05] MEDS: Metoclopramide HCl 10 MG TAB PER TUBE SCH (09:50)
[2019-04-05] MEDS: guaiFENesin ER 600 MG TAB PO SCH (10:00)
[2019-04-05] MEDS ORDERED: Morphine 2 MG/ML SYRINGE SLOW IVP PRN (10:26)
--- NOTE | 2019-04-05 10:29 | PDOC.PALPN ---
Palliative Progress Note - Subjective Sleeping, labored respirations, non-rebreather O2. - Objective Vital Signs: Vital Signs - Most Recent Temp Pulse Resp BP Pulse Ox 99.0 F 138 H 24 H 121/83 92 L 04/05/19 08:07 04/05/19 08:07 04/05/19 08:07 04/05/19 08:07 04/05/19 08:27 - Physical Exam Constitutional: mild distress HEENT: EOMI, moist MMs Respiratory: labored respirations, tachypnea Deviation from normal: Bilateral adventicious lung sounds Deviation from normal: tachycardic Gastrointestinal: non-tender, positive bowel sounds Deviation from normal: PEG Musculoskeletal: no clubbing, pulses present Skin: cap refill <2 seconds Deviation from normal: Anxious when aroused - Assessment (1) Palliative care encounter Code(s): Z51.5 - ENCOUNTER FOR PALLIATIVE CARE Current Visit: Yes Status: Acute (2) Acute respiratory failure with hypoxia Code(s): J96.01 - ACUTE RESPIRATORY FAILURE WITH HYPOXIA Current Visit: Yes Status: Acute (3) Cranial nerve disorder Code(s): G52.9 - CRANIAL NERVE DISORDER, UNSPECIFIED Current Visit: Yes Status: Acute (4) Lung metastases Code(s): C78.00 - SECONDARY MALIGNANT NEOPLASM OF UNSPECIFIED LUNG Current Visit: Yes Status: Acute (5) Metastatic breast carcinoma Code(s): C50.919 - MALIGNANT NEOPLASM OF UNSP SITE OF UNSPECIFIED FEMALE BREAST Current Visit: Yes Status: Acute (6) Swallowing difficulty Code(s): R13.10 - DYSPHAGIA, UNSPECIFIED Current Visit: Yes Status: Acute - Plan Plan: Increase scoplolamine patch to 3 mg. Consider Atropine gtts if needed sl, concern is difficulty swallowing. Increase Ativan secondary to continued agitation Hospice consult placed this morning by Dr Hong, [facility] to evaluate for GIP or Home Elsi PÉREZ communicated with [facility] and should be here at 2-2: 30. Elsi gave instructions for them to call the Ronald to coordinate visit. Communicates with Dania Ferrari RN / will call should symptoms become unmanaged and patient uncomfortable [50] minutes spent on this encounter with >50% of the time in counseling and coordination of care. - ROS Constitutional: weakness, other (ill appearing) ENT: dry mouth, difficulty swallowing (shortness of breath, wet weak cough)
[2019-04-05] MEDS ORDERED: Scopolamine 1.5 mg/72 hour Patch TD SCH (11:00)
--- NOTE | 2019-04-05 11:16 | PQF ---
LACHELLE GAY MALIK MD [id number] CLINICAL DOCUMENTATION IMPROVEMENT CLARIFICATION FORM: ICD-10 Updated PLEASE DO AN ADDENDUM TO THE PROGRESS NOTE WITH ANY DOCUMENTATION UPDATES OR ADDITIONS AND CARRY THROUGH TO DC SUMMARY. THANK YOU. DATE: 04/05/2019 ATTN:DR. Monica DIGGS Please exercise your independent, professional judgment in responding to the clarification form. Clinical indicators are provided on the bottom of this form for your review SEPSIS Present on Admission (POA): [ ] Yes [ ] No [ ] Unable to determine For continuity of documentation, please document condition throughout progress notes and discharge summary. Thank You. CLINICAL INDICATORS - SIGNS / SYMPTOMS / LABS/ RSULTS AND LOCATION IN MR WBC 03/28 6.2 03/31 2.6 03/30 5.0 04/01 4.3 04/02 1.9 04/04 5.3 04/05 6.9 BANDS 03/30 15 04/04 23 04/05 18 TEMP: 04/02 100.4-102 04/03 100.2-101.8 LACTIC ACID 03/31 2.6 03/28 ED VITALS: PULSE 107-155; RESPIRATIONS 30-44; O2 SAT 91% RA > 96-97% 2L/ NC 04/03 PN (OBI) PATIENT DEVELOPED WORSENING SOB AND TACHYCARDIA ON 03/31/2019 AND WAS TRANSFERRED TO [facility] AFTER CODE GREEN, DEVELOPED FEVER ASSOCIATED WITH WORSENING COUGH AND TACHYCARDIA. A/P :1). SEPSIS 04/04 PN (OBI) A/P : 2). SEPSIS, ACUTE RISK: DX HEALTHCARE ASSOCIATED BACTERIAL PNEUMONIA /MRSA PNEUMONIA , ACUTE HYPOXIC RESPIRATORY FAILURE (OBI / PN ) 04/04 TREATMENTS: SUPPLEMENTAL OXYGEN (03/28-PRESENT) ZOSYN IV (03/30-04/02) THANK YOU! DALY (This form is maintained as a part of the permanent medical record) 2014 [employer] All Rights Reserved [email or web address] [phone] MTDD
[2019-04-05] MEDS ORDERED: Morphine 4 MG/ML VIAL ONE (11:47)
[2019-04-05] MEDS ORDERED: Morphine 4 MG/ML VIAL IV SCH (12:15)
--- NOTE | 2019-04-05 13:37 | PDOC.HOSPP ---
- Subjective Encounter Date: 04/05/19 Encounter Time: 10:00 Subjective: Patient seen and examined for resp failure. SOB +. No other complaints. No overnight events - Objective Vital Signs & Weight: Vital Signs (12 hours) Temp Pulse Resp BP Pulse Ox 04/05/19 08:27 92 L 04/05/19 08:07 99.0 F 138 H 24 H 121/83 96 04/05/19 04:50 98.2 F 137 H 24 H 119/81 95 Weight Admit Weight 167 lb Weight 173 lb 4 oz Most Recent Monitor Data Heart Rate from ECG 138 NIBP 121/82 NIBP BP-Mean 95 Respiration from ECG 26 SpO2 95 I&O: 04/04/19 04/05/19 04/06/19 06:59 06:59 06:59 Intake Total 525 1280 Output Total 500 150 Balance 25 1130 Result Diagrams: 04/05/19 06:15 04/05/19 06:15 Hospitalist ROS - Review of Systems Constitutional: denies: fever, chills, sweats, weakness, malaise, other Respiratory: reports: shortness of breath, SOB with excertion Gastrointestinal: denies: nausea, vomiting, abdominal pain, diarrhea, constipation, melena, hematochezia, other - Medication Medications: Active Medications Generic Name Dose Route Start Last Admin Trade Name Freq PRN Reason Stop Dose Admin Acetaminophen 650 mg 04/03/19 06:00 04/04/19 08:34 Tylenol PO 650 mg Q6H PRN Administration Headache/Fever or Pain Hydrocodone Bitart/Acetaminophen 2 tab 03/30/19 18:00 04/04/19 00:17 [place] 10/325 PER TUBE 2 tab Q4H PRN Administration Pain Albuterol/Ipratropium 3 ml 03/28/19 19:00 04/05/19 08:26 Duoneb NEB Not Given [id number] SARAH Benzonatate 100 mg 04/02/19 15:00 04/05/19 09:44 Tessalon PO 100 mg TID SARAH Administration Fluticasone Propionate 0 gm 04/02/19 21:00 04/05/19 09:44 Flonase Nasal [place] NASAL 1 spr BID SARAH Administration Guaifenesin 1,200 mg 03/31/19 21:00 04/05/19 10:00 Mucinex PO Not Given Q12HR SARAH Lactated Ringer's 1,000 mls @ 0 mls/hr 03/31/19 19:38 04/05/19 06:10 Lactated Ringer's IV 1,000 mls .Q0M SARAH Administration KVO Meropenem 1 gm/ Device 50 mls @ 100 mls/hr 04/04/19 06:00 04/05/19 06:10 IVPB 50 mls Q8HR SARAH Administration Linezolid 600 mg/ Device 300 mls @ 150 mls/hr 04/04/19 09:00 04/05/19 09:41 IVPB 300 mls Q12HR SARAH Administration Lorazepam 1 mg 04/05/19 10:24 04/05/19 13:20 Ativan SLOW IVP 1 mg Q2H PRN Administration Anxiety Metoclopramide HCl 10 mg 04/02/19 21:00 04/05/19 09:50 Reglan PER TUBE 10 mg TID SARAH Administration Mometasone Furoate/Formoterol Fumar 2 puff 03/28/19 18:30 04/05/19 08:24 Dulera 200 Mcg/5 Mcg Inhaler INH 2 puff BID-RT SARAH Administration Morphine Sulfate 10 mg 04/04/19 13:12 04/05/19 04:19 Roxanol Solution SL 10 mg Q1H PRN Administration SOB or Anxiety Morphine Sulfate 4 mg 04/05/19 12:15 04/05/19 12:34 Morphine IV 04/05/19 14:00 Not Given NOW SARAH Morphine Sulfate 2 mg 04/05/19 12:52 04/05/19 13:17 Morphine SLOW IVP 2 mg Q1H PRN Administration Pain Levorphanol 2mg 1 each 03/30/19 22:00 04/05/19 06:10 Patient's Home PER TUBE 1 each Medication Q8HR SARAH Administration Scopolamine 3 mg 04/05/19 11:00 04/05/19 11:41 Transderm Scop TD 3 mg Q3D SARAH Administration Sodium Chloride 10 ml 03/31/19 09:00 04/05/19 09:51 Flush - Normal Saline IVF 10 ml Q12HR SARAH Administration Sodium Chloride 10 ml 03/30/19 22:10 04/05/19 06:14 Flush - Normal Saline IVF 10 ml PRN PRN Administration Saline Flush Venlafaxine HCl 150 mg 03/31/19 21:00 11/19/19 09:50 Effexor PER TUBE 150 mg BID SARAH Administration - Exam General Appearance: ill appearing General - other findings: in Resp distress Neck: no JVD Heart: RRR (tachycardic) Respiratory: rales, rhonchi, wheezes Gastrointestinal: soft, non-distended Gastrointestinal - other findings: PEG + Extremities: no cyanosis Hosp A/P - Plan DVT proph w/SCDs Acute hypoxic resp failure Severe Sepsis due to Aspiration pneumonia-MRSA Metastatic Breast CA Gen weakness/Physical deconditioning Hyponatremia/Hypophosphatemia/Hypokalemia Swallow dys s/p PEG tube placement Abn LFTs due to mets DNR PLAN: Cont Atbx - Zyvox and Meropenem Cont PEG tube feeding as tolerated AM labs Cont other meds
--- NOTE | 2019-04-05 19:55 | DIS ---
DATE OF ADMISSION: 03/28/2019 DATE OF DISCHARGE: 04/05/2019 DISCHARGE DISPOSITION: Inpatient hospice. DISCHARGE DIAGNOSES: 1. Acute hypoxic respiratory failure. 2. Severe sepsis due to aspiration pneumonia with methicillin-resistant Staphylococcus aureus. 3. Metastatic breast cancer. 4. Generalized weakness. 5. Physical deconditioning. 6. Hypokalemia. 7. Hypophosphatemia. 8. Hyponatremia. 9. Swallow dysfunction status post PEG tube placement. 10. Abnormal LFTs, probably secondary to metastasis. CODE STATUS: Do not resuscitate. INPATIENT GEOSPATIAL INFORMATION SCIENTIST: 1. Oncology, Dr. Hong. 2. Gastroenterology, Dr. Coleman. INPATIENT PROCEDURES: 1. On 03/30/2019, the patient underwent PEG tube placement due to swallow dysfunction. The patient failed a modified barium swallow. 2. Echocardiogram showed ejection fraction 65% to 70% with small hemodynamically insignificant pericardial effusion. BRIEF HOSPITAL COURSE: The patient is a 33-year-old female with metastatic breast cancer, presented to the hospital on 03/28/2019, with shortness of breath. Workup was consistent with acute hypoxic respiratory failure along with pneumonia. She was started on broad-spectrum antibiotic. She underwent PEG tube placement due to significant swallow dysfunction. She failed a modified barium study. On 03/31/2019, the patient was transferred to higher level of care due to increased tachycardia along with decreased oxygen saturation. Echocardiogram was done at this time that showed normal left ventricular ejection fraction. The patient was seen by Pulmonary, Dr. Mars as well. The family decided on comfort care. She will be discharged to inpatient hospice today. Please refer to the various consultation note for details. Job ID: [id number]
== END 2019-04-05 16:41 | disposition hospice, inpatient (51) | DRG 177 ==
LOC: ERS 11:31 → ONC 14:45 → IMCU/EMU 03-31 17:12 → ONC 04-04 21:37
PROVIDERS: ADMIT Internal Medicine; ATTEND Internal Medicine
PROC: 0DH63UZ Insertion of Feeding Device into Stomach, Percutaneous Approach (ICD-10-PCS; principal; 2019-03-30)
DX: J69.0 Pneumonitis due to inhalation of food and vomit (principal); J96.01 Acute respiratory failure with hypoxia; D61.810 Antineoplastic chemotherapy induced pancytopenia; A41.02 Sepsis due to Methicillin resistant Staphylococcus aureus; R65.20 Severe sepsis without septic shock; C78.7 Secondary malignant neoplasm of liver and intrahepatic bile duct; C79.51 Secondary malignant neoplasm of bone; C79.31 Secondary malignant neoplasm of brain; C79.00 Secondary malignant neoplasm of unspecified kidney and renal pelvis; C78.00 Secondary malignant neoplasm of unspecified lung; E87.1 Hypo-osmolality and hyponatremia; E44.0 Moderate protein-calorie malnutrition; J91.0 Malignant pleural effusion; Z66 Do not resuscitate; Z51.5 Encounter for palliative care; J15.212 Pneumonia due to Methicillin resistant Staphylococcus aureus; C50.911 Malignant neoplasm of unspecified site of right female breast; F41.9 Anxiety disorder, unspecified; F32.9 Major depressive disorder, single episode, unspecified; J38.00 Paralysis of vocal cords and larynx, unspecified; G52.9 Cranial nerve disorder, unspecified; R13.12 Dysphagia, oropharyngeal phase; K44.9 Diaphragmatic hernia without obstruction or gangrene; K31.7 Polyp of stomach and duodenum; T45.1X5A Adverse effect of antineoplastic and immunosuppressive drugs, initial encounter; E87.6 Hypokalemia; E83.42 Hypomagnesemia; Z87.891 Personal history of nicotine dependence; Z17.1 Estrogen receptor negative status [ER-]; Z90.710 Acquired absence of both cervix and uterus; Z79.899 Other long term (current) drug therapy; Z28.21 Immunization not carried out because of patient refusal; Z68.27 Body mass index [BMI] 27.0-27.9, adult
CPT/HCPCS: 36415; 71045; 74176; 77412; 80048; 80053; 80069; 80202; 82805; 83605; 83735; 83880; 84100; 84145; 84443; 84484; 84703; 85007; 85014; 85018; 85025; 85027; 87040; 87070; 87077; 87186; 87205; 87804; 93005; 93010; 93306; 94640; 96361; 96365; 96375; C9113; J0131; J0690; J0692; J1100; J1885; J1956; J2020; J2060; J2185; J2270; J2543; J2704; J2920; J3010; J3370; J3490; J7050; J7620; Q0163